=== PATIENT | female | born 1950 | race Caucasian/White ===

== ENCOUNTER 2023-01-05 15:00 | Outpatient (OUT) | payer MEDICARE, MEDICAID, SELFPAY | END 2023-01-05 15:01 | disposition home or self-care (01) | LOC: PST 01-19 18:04 | PROVIDERS: Visit Provider Surgery | DX: Z01.818 Encounter for other preprocedural examination (principal); K63.5 Polyp of colon ==

== ENCOUNTER 2023-01-06 07:14 | Day surgery (SDC) | payer MEDICARE, MEDICAID, SELFPAY ==
[2023-01-06 07:38] VITALS: BP 130/88; PULSE 62; RESP 18; TEMP 36.1; O2SAT 95; BMI 35.6
[2023-01-06 07:47] LABS: Glucometer 121 mg/dL (74-106)
[2023-01-06] MEDS: LACTATED RINGER'S SOLUTION 1,000 ML 50 ML IV (07:50)
[2023-01-06 08:50] VITALS: BP 112/62; PULSE 70; RESP 16; TEMP 37.2; O2SAT 96
--- NOTE | 2023-01-06 08:57 | PM.GSPRC ---
Date of procedure: 01/06/23 Indications for Procedure: This patient is a 72-year-old female who presents for screening colonoscopy. Patient reportedly has h/o polyps. The risks benefits options and potential complications of the procedure were discussed in detail with the patient and they agreed to proceed and consent was signed. Pre-op diagnosis: colon cancer screening Post-op diagnosis: other (normal exam) Procedure: colonoscopy Anesthesia: MAC Surgeon: Angelo Joyce Procedure Summary: The patient was brought to the endoscopy suite and placed in the left lateral decubitus position.? Under MAC the fiberoptic colonoscope was introduced into the rectum. This was gradually advanced through the colon to the cecum. The cecal landmarks were identified. The bowel prep was good. Gradual withdrawal of the colonoscope was then undertaken. No vascular polypoid or mucosal lesions were noted throughout the entire length of the colon. The anal rectal canal was unremarkable. The colon was decompressed. Digital rectal exam was unremarkable. The procedure was ended and the patient was transferred to the recovery area in stable condition. Recommended follow-up colonoscopy in ten years. Estimated blood loss (mL): 0 Specimens: none Complications: No
[2023-01-06 09:05] VITALS: BP 115/65; PULSE 66; RESP 18; O2SAT 97
[2023-01-06 09:19] VITALS: BP 118/72; PULSE 62; RESP 16; O2SAT 96
== END 2023-01-06 09:20 | disposition home or self-care (01) ==
PROVIDERS: Visit Provider Surgery
PROC: (CPT G0121; principal; 2023-01-06 08:30)
DX: Z12.11 Encounter for screening for malignant neoplasm of colon (principal); Z86.010 Personal history of colon polyps; I48.91 Unspecified atrial fibrillation; I10 Essential (primary) hypertension; E78.5 Hyperlipidemia, unspecified; Z90.710 Acquired absence of both cervix and uterus; Z90.49 Acquired absence of other specified parts of digestive tract; Z95.0 Presence of cardiac pacemaker; Z79.4 Long term (current) use of insulin; Z79.899 Other long term (current) drug therapy; Z79.01 Long term (current) use of anticoagulants
CPT/HCPCS: G0121; 36415; 82948; J2704

== ENCOUNTER 2023-10-20 09:18 | Outpatient (OUT) | payer MEDICARE, MEDICAID, SELFPAY ==
--- NOTE | 2023-10-20 | XR_ITS ---
[address] [address] Patient Name: ELI GRIMM MRN: [id number] date: 1950 Sex: F Assigned Patient Location: Current Patient Location: Accession/Order Number: [id number] Exam Date: 10/20/2023 09:20 Report Date: 10/21/2023 06:49 At the request of: MELODY WADE Procedure: XR lumbar spine min 4V EXAMINATION: XR lumbar spine min 4V HISTORY: LUMBAR PAIN COMPARISON: XR lumbar spine 06/08/2016 FINDINGS: BONES: Minimal grade 1 retrolisthesis of L1 on 2, L2 on 3, and L3 on 4; no change in alignment during flexion and extension. Chronic mild anterior wedging of T11 and T12. Moderate degenerative facet arthropathy L4-L5, L5-S1. DISC SPACES: Marked narrowing L4-L5, L5-S1. Mild narrowing L1-L2, L2-L3. PARASPINOUS: Prior right hip replacement. OTHER: Negative. XR/XR lumbar spine min 4V IMPRESSION: 1. No appreciable acute abnormality. 2. Multilevel degenerative changes detailed above; stable to minimally progressed compared to 2016. Electronically authenticated by: MIS GLASS Date: 10/21/2023 06:49
== END 2023-10-20 09:19 | disposition home or self-care (01) ==
LOC: EC 09:19
PROVIDERS: Visit Provider Orthopaedic Surgery Orthopaedic Surgery of the Spine
DX: M54.50 Low back pain, unspecified (principal)
CPT/HCPCS: 72110

== ENCOUNTER 2024-07-05 11:16 | Outpatient (OUT) | payer MEDICARE, MEDICAID, SELFPAY ==
--- NOTE | 2024-07-05 11:36 | ECG_ITS ---
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
[2024-07-05 12:19] LABS: Basophils Percent Auto 0.6 % (0.2-2.0); Eosinophils Absolute Auto 0.2 10^3/uL (0.0-0.7); Eosinophils Percent Auto 2.4 % (0.9-7.0); Hematocrit 37.9 % (36.0-48.0); Hemoglobin 11.8 g/dL (12.0-16.0); Immature Granulocytes Abs Auto 0.02 10^3/uL (0.00-0.03); Immature Granulocytes Pct Auto 0.3 % (0.0-0.5); Lymphocytes Absolute Auto 1.3 10^3/uL (1.2-3.8); Mean Corpuscular HGB Conc 31.1 g/dL (29.9-35.2); Mean Corpuscular Hemoglobin 29.8 pg (26.7-34.0); Mean Corpuscular Volume 95.7 fL (81.0-99.0); Mean Platelet Volume 9.4 fL (9.5-13.5); Monocytes Absolute Auto 0.6 10^3/uL (0.3-0.8); Monocytes Percent Auto 8.7 % (1.7-12.0); Neutrophils Absolute Auto 5.1 10^3/uL (1.4-6.5); Platelet Count 184 10^3/uL (150-450); Red Blood Count 3.96 10^6/uL (4.20-5.40); Red Cell Distribution Width 13.2 % (11.0-15.0); White Blood Count 7.2 10^3/uL (4.0-11.0)
[2024-07-05 12:27] LABS: Estimated Average Glucose 128 mg/dL; Glycohemoglobin A1C 6.1 % (4.5-6.2)
[2024-07-05 12:28] LABS: Alanine Aminotransferase 18 U/L (14-59); Albumin Globulin Ratio 1.2; Albumin Level 3.7 g/dL (3.4-5.0); Alkaline Phosphatase 53 U/L (46-116); Anion Gap 8.9; Aspartate Amino Transferase 16 U/L (15-37); BUN Creatinine Ratio 15.9; Bilirubin Direct 0.1 mg/dL (0.0-0.2); Bilirubin Total 0.4 mg/dL (0.2-1.0); Calcium 8.9 mg/dL (8.5-10.1); Carbon Dioxide 31.1 mmol/L (21.0-32.0); Chloride 105 mmol/L (98-107); Estimated GFR (African America 33 (>=60 mL/min/1.73m^2); Estimated GFR (Non-African Ame 27 (>=60 mL/min/1.73m^2); Globulin 3.1 g/dL; Glucose 105 mg/dL (74-106); Sodium 140 mmol/L (136-145); Total Protein 6.8 g/dL (6.4-8.2)
[2024-07-05 12:36] LABS: INR 1.19; Partial Thromboplastin Time 29.1 sec (22.3-36.2); Prothrombin Time 12.4 sec (9.0-11.6)
== END 2024-07-05 11:17 | disposition home or self-care (01) ==
LOC: PST 11:19
PROVIDERS: Visit Provider Orthopaedic Surgery Orthopaedic Surgery of the Spine
DX: Z01.810 Encounter for preprocedural cardiovascular examination (principal); Z01.812 Encounter for preprocedural laboratory examination; M48.062 Spinal stenosis, lumbar region with neurogenic claudication
CPT/HCPCS: 80048; 80076; 83036; 85025; 85610; 85730; 87081; 93005

== ENCOUNTER 2024-09-10 08:33 | Outpatient (OUT) | payer MEDICARE, MEDICAID, SELFPAY ==
--- OUTSIDE RECORDS SUMMARY | 2024-09-10 08:48 | XMS_ITS | CCD ---
Author Organization [facility] Care Team Providers Care Quality Control Microbiologist Name Role Phone Alessandra Maddoxary HCameron Admitting Unavailable Timmis, Alfredito HCameron Attending Unavailable Timmis, Alfredito H. Referring Unavailable TRAVIS, NAYA Primary Care Unavailable SHAMMO, BECKIE Admitting Unavailable SHAMMO, BECKIE Attending Unavailable MISC, DR ANDREWS Primary Care Unavailable SHAMMO, BECKIE Consulting Unavailable Travis, Naya L. Primary Care Unavailable Chase, Paris Mcclure Attending Unavail able Chase, Paris Mcclure Admitting Unavail able Chase, Paris Mcclure Attending Unavail able Chase, Paris Mcclure Admitting Unavail able Travis, Naya L. Primary Care Unavailable THU, GRISELDA L Referring Unavailable TRAVIS, NAYA L Primary Care Unavailable THU, GRISELDA L Referring Unavailable TRAVIS, NAYA L Primary Care Unavailable THU, GRISELDA L Referring Unavailable TRAVIS, NAYA L Primary Care Unavailable THU, GRISELDA L Attending Unavailable TRAVIS, NAYA L Referring Unavailable TRAVIS, NAYA L Primary Care Unavailable THU, GRISELDA L Attending Unavailable TRAVIS, NAYA L Referring Unavailable TRAVIS, NAYA L Primary Care Unavailable THU, GRISELDA L Attending Unavailable TRAVIS, NAYA L Referring Unavailable TRAVIS, NAYA L Primary Care Unavailable THU, GRISELDA L Attending Unavailable TRAVIS, NAYA L Referring Unavailable TRAVIS, NAYA L Primary Care Unavailable THU, GRISELDA L Attending Unavailable TRAVIS, NAYA L Referring Unavailable TRAVIS, NAYA L Primary Care Unavailable THU, GRISELDA L Attending Unavailable TRAVIS, NAYA L Referring Unavailable TRAVIS, NAYA L Primary Care Unavailable Naya Travis MD Primary Care Provider [phone] Naya Travis MD Primary Care Provider Anahi Reyes MD Primary Care Provider [phone] Margie Saenz DO Primary Care Provider [phone] TANISHA MOLINA Attending Unavailable TANISHA MOLINA Attending Unavailable MARGIE SAENZ Attending Unavailable TRAVIS, NAYA Referring Unavailable TANIHSA MOLINA Attending Unavailable STAN SCHWAB Referring Unavailable STAN SCHWAB Attending Unavailable PARIS STONE Attending Unavailable TANISHA MOLINA Attending Unavailable MARGIE SAENZ Attending Unavailable ALFREDITO MADDOX Attending Unavailable TRAVIS, NAYA Referring Unavailable STAN SCHWAB Referring Unavailable STAN SCHWAB Attending Unavailable PARIS STONE Attending Unavailable TRAVIS, NAYA L Referring Unavailable TRAVIS, NAYA L Primary Care Unavailable TRAVIS, NAYA L Referring Unavailable TRAVIS, NAYA L Primary Care Unavailable ALEJO BAXTER Attending Unavailable GRISELDA ANDINO Referring Unavailable TRAVIS, NAYA L Primary Care Unavailable TRAVIS, NAYA L Referring Unavailable TRAVIS, NAYA L Primary Care Unavailable NIENBERGALHTEA Attending Unavailable TRAVIS, NAYA L Referring Unavailable TRAVIS, NAYA L Primary Care Unavailable NIENBERGALTHEA S Attending Unavailable NIENBERG, ALTHEA S Referring Unavailable TRAVIS, NAYA L Primary Care Unavailable NIENBERGALTHEA Attending Unavailable TRAVIS, NAYA L Referring Unavailable TRAVIS, NAYA L Primary Care Unavailable GONSALO, ALIZA Referring Unavailable TRAVIS, NAYA L Primary Care Unavailable GONSALO, ALIZA Referring Unavailable DANITA, ANAHI Primary Care Unavailable KELLY BAUDILIO L Referring Unavailable DANITA, ANAHI Primary Care Unavailable KELLY BAUDILIO Jared Referring Unavailable DANITA, ANAHI Primary Care Unavailable TRAVIS, NAYA L Referring Unavailable DANITA, ANAHI Primary Care Unavailable JOE ROBERTO Attending Unavailable TRAVIS, NAYA L Referring Unavailable DANITA, ANAHI Primary Care Unavailable Naya Travis MD Primary Care Provider [phone] Allergies Allergy Classification Reported Allergen(s) Allergy Type Date of Onset Reaction(s) Facility (1 source) Azithromycin; Translations: [Zithromax] Drug Allergy [facility] Repository (17 sources) Cortisone; Translations: [cortisone] Drug Allergy 02-01-20 14 Tachycardia [facility] Repository (1 source) levoFLOXacin; Translations: [Levaquin] Drug Allergy [facility] Repository (1 source) Sulfamethoxazole / Trimethoprim; Translations: [Bactrim DS] Drug Allergy [facility] Repository (16 sources) atorvastatin; Translations: [ATORVASTATIN] Drug Allergy 02-01-20 14 Other (See Comments) [facility] Repository (16 sources) Azithromycin; Translations: [AZITHROMYCIN] Drug Allergy 02-01-20 14 Nausea And Vomiting, Rash, Vomiting [facility] Repository (9 sources) dabigatran etexilate; Translations: [DABIGATRAN ETEXILATE] Drug Allergy 02-01-20 14 Nausea [facility] Repository (9 sources) Hydrocortisone; Translations: [HYDROCORTISONE] Drug Allergy 02-01-20 14 [facility] Repository (16 sources) levoFLOXacin; Translations: [LEVOFLOXACIN] Drug Allergy 11-17-19 17 Dizziness [facility] Repository (17 sources) rosuvastatin; Translations: [ROSUVASTATIN] Drug Allergy 01-31-20 19 Itching, Rash [facility] Repository (16 sources) Sulfamethoxazole / Trimethoprim; Translations: [SULFAMETHOXAZOLE-TRIM ETHOPRIM] Drug Allergy 04-01-20 14 Vomiting [facility] Repository (16 sources) ERYTHROMYCIN BASE; Translations: [ERYTHROMYCIN BASE] Propensity to adverse reactions to drug (disorder) 02-01-20 14 Vomiting [facility] Repository (7 sources) Acetaminophen Drug Allergy 04-29-20 21 [facility] (7 sources) cefdinir Drug Allergy 11-16-19 24 Unknown [facility] (7 sources) dabigatran etexilate Drug Allergy 02-01-20 14 Nausea Only [facility] (7 sources) Doxycycline Drug Allergy 11-16-19 24 [facility] (7 sources) dulaglutide Drug Allergy 04-29-20 21 Rash [facility] (7 sources) DULoxetine Drug Allergy 12-08-19 21 [facility] (7 sources) Erythromycin Drug Allergy 11-16-19 24 [facility] (7 sources) hydroCHLOROthiazide Drug Allergy 11-16-19 24 [facility] (7 sources) HYDROcodone Drug Allergy 10-28-20 21 [facility] (7 sources) Lisinopril Allergy to substance 11-16-19 [facility] (7 sources) metroNIDAZOLE Drug Allergy 12-23-19 [facility] (7 sources) moxifloxacin Drug Allergy 11-16-19 [facility] (7 sources) Nitrofurantoin Drug Allergy 11-16-19 Unknown [facility] (7 sources) Simvastatin Allergy to substance 11-16-19 [facility] (7 sources) venlafaxine Drug Allergy 11-16-19 [facility] (7 sources) Amoxicillin-Pot Clavulanate Drug Allergy 11-16-19 [facility] Work Phone: Medications Current Medications Medication Drug Class(es) Dates Sig (Normalized) Sig (Original) ALPRAZolam 0.25 mg oral tablet (7 sources) Benzodiazepine Start: 08-10-2022 ALPRAZolam (Xanax) 0.25 MG tablet every 12 (twelve) hours. 08/10/2022 Active clotrimazole 10 mg/ml topical cream (7 sources) Azole Antifungal clotrimazole (Lotrimin) 1 % cream Apply 1 application topically in the morning and 1 application before bedtime. Active esomeprazole 20 mg delayed release oral capsule (13 sources) Proton Pump Inhibitor Start: 07-19-2023 take 1 capsule by mouth once daily esomeprazole (NexIUM) [address] capsule Take 20 mg by mouth Daily 07/19/2023 Active Start: 07-13-2022 take 1 capsule by [facility] in the morning esomeprazole (NexIUM) 40 mg capsule Take 1 capsule (40 mg total) by mouth in the morning. 07/13/2022 Active estradiol 0.1 mg/ml vaginal cream (6 sources) Estrogen Start: 12-12-2023 estradioL (EST RACE) 0.01 % (0.1 mg/gram) vaginal cream Insert 1 g into the vagina in the morning. 42.5 g 3 12/12/2023 Active furosemide 40 mg oral tablet (13 sources) Loop Diuretic Start: 04-10-2024 furosemide (LA SIX) 40 mg tablet Take 1 tablet (40 mg total) by mouth as needed (edema). 90 tablet 1 04/10/2024 Active 3 ml insulin lispro 100 unt/ml pen injector (13 sources) Insulin Analog Start: 10-12-2023 insulin lispro (HumaLOG KWIKPEN) 100 UNIT/ML injection Indications: Type 2 diabetes mellitus with stage 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ney disease, without long-term current use of insulin (HCC) ([facility]) INJECT SUBCUTANEOUSLY PER SLIDING SCALE DIRECTED 1:30 > 150 MG/DL ( max 30 units a day) for 30 days 15 mL 3 10/12/2023 Active insulin lispro ( HumaLOG) 100 unit/mL injection Inject under the skin. Sliding scale Active levothyroxine sodium 0.025 mg oral tablet (13 sources) l-Thyroxine levothyroxine (Synthroid, Levoxyl) 25 MCG tablet 1 (one) time each day at the same time. Active losartan potassium 25 mg oral tablet (7 sources) Angiotensin 2 Receptor Lacie Start: 08-03-19 24 take 1 tablet by mouth once daily losartan (Cozaar) 25 MG tablet Take 25 mg by mouth Daily 08/03/2023 Active lovastatin 40 mg oral tablet (13 sources) HMG-CoA Reductase Inhibitor Start: 08-10-19 23 take 2 tablets by mouth at bedtime lovastatin (Mevacor) 40 MG tablet Take 80 mg by mouth at bedtime 08/10/2022 Active meclizine hydrochloride 25 mg oral tablet (13 sources) Antiemetic meclizine (Antiv ert) 25 MG tablet 1 tablet as needed Orally 3 xs daily as needed for 90 days Active metoprolol tartrate 25 mg oral tablet (13 sources) beta-Adrenergic Lacie Start: 12-04-19 24 take 1 tablet by mouth in the morning, then take 1 tablet by mouth at bedtime metoprolol tartrate (LOPRESSOR) 25 mg tablet Take 1 tablet (25 mg total) by mouth in the morning and 1 tablet (25 mg total) before bedtime. 180 tablet 2 12/04/2023 Active metoprolol tartr ate (Lopressor) 25 MG tablet every 12 (twelve) hours. Active nystatin 100 unt/mg topical powder (8 sources) Polyene Antifungal Start: 11-20-2023 End: 07-18-2024 nystatin (MYCOSTATIN) powder Apply 1 Application topically in the morning and 1 Application at noon and 1 Application in the evening and 1 Application before bedtime. 15 g 11/20/2023 Active ondansetron 8 mg disintegrating oral tablet (13 sources) Serotonin-3 Receptor Antagonist Start: 2022 take 1 tablet by mouth twice daily as needed ondansetron ODT (ZOFRAN ODT) 8 mg disintegrating tablet DISSOLVE 1 TABLET IN MOUTH TWICE DAILY NEEDED 2022 Active rivaroxaban 15 mg oral tablet (14 sources) Factor Xa Inhibitor Start: 02-22-2022 End: 07-24-2024 take 1 tablet by mouth in the morning rivaroxaban (Xarelto) 15 MG tablet Take 15 mg by mouth in the morning. 02/22/2022 Active 0.25 mg, 0.5 mg dose 1.5 ml semaglutide 1.34 mg/ml pen injector (6 sources) semaglutide (OZEMPIC) 0.25 mg or 0.5 mg(2 mg/1.5 mL) pen injector Inject 2 mg under the skin once a week. Active Semaglutide, 2 MG/DOSE, (Ozempic, 2 MG/DOSE,) 8 MG/3ML solution pen-injector (9 sources) Start: 09-09-2024 End: 09-09-2025 Semaglutide, 2 MG/DOSE, (Ozempic, 2 MG/DOSE,) 8 MG/3ML solution pen-injector Indications: Type 2 diabetes mellitus with stage 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ney disease, without long-term current use of insulin (HCC) ([facility]) Inject 2 mg under the skin every 7 (seven) days 9 mL 3 09/09/2024 09/09/2025 Active Start: 03-11-2024 End: 03-11-2025 Semaglutide, 2 MG/DOSE, (Oze mpic, 2 MG/DOSE,) 8 MG/3ML solution pen-injector Indications: Type 2 diabetes mellitus with stage 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ney disease, without long-term current use of insulin (HCC) ([facility]) Inject 1 mg under the skin every 7 (seven) days 9 mL 3 03/11/2024 03/11/2025 Active Start: 09-08-2023 End: 03-11-2024 Semaglutide, 2 MG/DOSE, (Oze mpic, 2 MG/DOSE,) 8 MG/3ML solution pen-injector Indications: Type 2 diabetes mellitus with stage 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ney disease, without long-term current use of insulin (HCC) ([facility]/HCC) Inject 2 mg under the skin every 7 (seven) days 9 mL 3 09/08/2023 03/11/2024 Discontinued (Dose adjustment) sertraline 25 mg oral tablet (13 sources) Serotonin Reuptake Inhibitor Start: 10-06-2022 take 4 tablets by mouth in the morning sertraline (ZOLOFT) 25 mg tablet Take 4 tablets (100 mg total) by mouth in the morning. 10/06/2022 Active Start: 10-06-2022 take 6 tablets by mo uth in the morning sertraline (ZOLOFT) 25 mg tablet Take 6 tablets (150 mg total) by mouth in the morning. 10/06/2022 Active sertraline (Zolo ft) 100 MG tablet 1 (one) time each day at the same time Active simethicone 125 mg oral caps ule (6 sources) simethicone (Myl icon,Gas-X) 125 MG capsule 1 tablet as needed Orally at bedtime Active Completed/Discontinued Medications Medication Drug Class(es) Dates Sig (Normalized) Sig (Original) cholecalciferol 1.25 mg oral capsule (12 sources) Vitamin D Start: 12-05-2022 End: 08-28-2024 cholecalciferol (VITAMIN D3) 50,000 units capsule 1 capsule (50,000 Units total). 12/05/2022 08/28/2024 Discontinued Start: 12-05-2022 take 1 capsule by mo uth every week cholecalciferol (Vitamin D-3) 1.25 MG (65512 UT) capsule Take 1 capsule by mouth 1 (one) time per week. 12/05/2022 Active clobetasol propionate 0.5 mg/ml topical cream (6 sources) Corticosteroid Start: 02-06-2024 End: 08-28-2024 clobetasoL (TEMOVATE) 0.05 % cream Apply 1 Application topically in the morning and 1 Application before bedtime. 30 g 02/06/2024 08/28/2024 Discontinued gabapentin 300 mg oral capsule (6 sources) Anti-epileptic Agent Start: 04-11-2024 End: 08-28-2024 take 1 capsule by mouth three times daily gabapentin (NEURONTIN) 300 mg capsule Indications: Lumbosacral spondylosis without myelopathy Take 1 capsule (300 mg total) by mouth 3 (three) times a day. 90 capsule 1 04/11/2024 08/28/2024 Discontinued methylPREDNISolone (2 sources) Corticosteroid Start: 11-15-2023 End: 03-11-2024 methylPREDNISolone (Medrol Dospak) 4 MG tablets Indications: Strain of left shoulder, initial encounter Follow schedule on package instructions 21 tablet 11/15/2023 03/11/2024 Discontinued polyethylene glycol 3350 36022 mg powder for oral solution (2 sources) Osmotic Laxative Start: 10-11-2023 End: 03-11-2024 polyethylene glycol, PEG, 3350 (MiraLax) 17 GM/SCOOP powder Take 17 g by mouth 1 (one) time each day at the same time 10/11/2023 03/11/2024 Discontinued Problems Active Problems Problem Classification Problem Date Documented Date Episodic/Chronic Acquired foot deformities (8 sources) Acquired hammer toe of left foot; Translations: [Other hammer toe(s) (acquired), left foot] Onset: 04-11-2019 12-22-2022 Chronic Acquired foot deformities (7 sources) Acquired hammer toe of right foot; Translations: [Other hammer toe(s) (acquired), right foot] Onset: 04-11-2019 12-22-2022 Chronic Anxiety disorders (20 sources) Anxiety; Translations: [Anxiety disorder, unspecified] Onset: 05-02-2017 12-22-2022 Chronic Asthma (19 sources) Asthma; Translations: [Unspecified asthma, uncomplicated] Onset: 10-05-2016 Resolved: 11-10-2022 11-14-2023 Chronic Blindness and vision defects (13 sources) Visual impairment; Translations: [Unspecified visual loss] Onset: 06-14-2022 12-22-2022 Chronic Cardiac dysrhythmias (20 sources) Paroxysmal atrial fibrillation; Translations: [Paroxysmal atrial fibrillation] Onset: 10-05-2016 Resolved: 08-28-2024 12-22-2022 Chronic Chronic kidney disease (8 sources) Chronic kidney disease stage 3; Translations: [CKD (chronic kidney disease) stage 3, GFR 30-59 ml/min ([facility])] Onset: 11-14-2023 11-14-2023 Chronic Chronic kidney disease (1 source) Chronic kidney disease; Translations: [Chronic kidney disease, stage 3b] Onset: 07-15-2024 Conduction disorders (17 sources) Cardiac pacemaker in situ; Translations: [Presence of cardiac pacemaker] Onset: 06-07-2011 12-22-2022 Chronic Congestive heart failure; nonhypertensive (15 sources) Chronic heart failure co-occurrent with normal ejection fraction; Translations: [Chronic diastolic (congestive) heart failure] Onset: 06-28-2023 11-14-2023 Chronic Diabetes mellitus with complications (20 sources) Type 2 diabetes mellitus; Translations: [Type 2 diabetes mellitus with diabetic chronic kidney disease] Onset: 10-12-2016 Resolved: 12-22-2022 06-19-2023 Chronic Disorders of lipid metabolism (14 sources) Hyperlipidemia; Translations: [Hyperlipidemia, unspecified] Onset: 06-14-2022 11-14-2023 Chronic Diverticulosis and diverticulitis (7 sources) Diverticulosis of colon; Translations: [Diverticulosis of large intestine without perforation or abscess without bleeding] Onset: 11-14-2023 11-14-2023 Chronic Esophageal disorders (20 sources) Gastroesophageal reflux disease; Translations: [Gastro-esophageal reflux disease without esophagitis] Onset: 06-14-2022 12-22-2022 Chronic Essential hypertension (15 sources) Hypertensive disorder; Translations: [Essential (primary) hypertension] Onset: 06-02-2011 12-22-2022 Chronic Genitourinary symptoms and ill-defined conditions (1 source) Dysuria; Translations: [Dysuria] Onset: 01-02-2024 Episodic Headache; including migraine (13 sources) Migraine; Translations: [Migraine, unspecified, not intractable, without status migrainosus] Onset: 06-14-2022 12-22-2022 Chronic Heart valve disorders (19 sources) Mitral valve regurgitation; Translations: [Nonrheumatic mitral (valve) insufficiency] Onset: 09-02-2020 12-22-2022 Chronic Inflammatory diseases of female pelvic organs (2 sources) Acute vaginitis; Translations: [Acute vaginitis] Onset: 11-20-2023 Episodic Mood disorders (6 sources) Depressive disorder; Translations: [Depression] Onset: 06-02-2018 06-14-2022 Chronic Mycoses (2 sources) Onychomycosis; Translations: [Tinea unguium] 05-02-2024 Episodic Nutritional deficiencies (7 sources) Vitamin D deficiency; Translations: [Vitamin D deficiency, unspecified] Onset: 11-14-2023 11-14-2023 Chronic Osteoarthritis (20 sources) Arthritis of first carpometacarpal joint of right hand; Translations: [Unilateral primary osteoarthritis of first carpometacarpal joint, right hand] Onset: 04-06-2017 12-22-2022 Chronic Other connective tissue disease (7 sources) Hip joint prosthesis present; Translations: [Presence of right artificial hip joint] Onset: 11-28-2017 12-22-2022 Chronic Other connective tissue disease (7 sources) History of reverse prosthetic total arthroplasty of left shoulder; Translations: [Presence of left artificial shoulder joint] Onset: 08-10-2020 12-22-2022 Chronic Other connective tissue disease (7 sources) History of total hip arthroplasty; Translations: [Presence of right artificial hip joint] Onset: 01-06-2018 12-22-2022 Chronic Other ear and sense organ disorders (7 sources) Sensorineural hearing loss, bilateral; Translations: [Sensorineural hearing loss, bilateral] Onset: 04-04-2018 12-22-2022 Chronic Other female genital disorders (1 source) Other specified noninflammatory disorders of vagina; Translations: [Other specified noninflammatory disorders of vagina] Onset: 01-02-2024 Episodic Other female genital disorders (1 source) Vaginal irritation Onset: 11-20-2023 Episodic Other hereditary and degenerative nervous system conditions (13 sources) Restless legs; Translations: [Restless legs syndrome] Onset: 05-02-2017 11-14-2023 Chronic Other nervous system disorders (13 sources) Carpal tunnel syndrome; Translations: [Carpal tunnel syndrome, unspecified upper limb] Onset: 06-14-2022 12-22-2022 Chronic Other nervous system disorders (7 sources) Difficulty walking; Translations: [Difficulty in walking, not elsewhere classified] Onset: 05-14-2019 12-22-2022 Chronic Other nervous system disorders (7 sources) Chronic pain; Translations: [Other chronic pain] Onset: 09-12-2017 12-22-2022 Chronic Other nervous system disorders (7 sources) Polyneuropathy; Translations: [Polyneuropathy, unspecified] Onset: 10-31-2017 06-22-2023 Chronic Other nervous system disorders (7 sources) Neuropathy; Translations: [Polyneuropathy, unspecified] Onset: 11-14-2023 11-14-2023 Chronic Other nervous system disorders (1 source) Other chronic pain; Translations: [Other chronic pain] Onset: 03-05-2024 Chronic Other non-traumatic joint disorders (7 sources) Derangement of right shoulder joint; Translations: [Other specific joint derangements of right shoulder, not elsewhere classified] Onset: 03-10-2021 12-22-2022 Chronic Other nutritional; endocrine; and metabolic disorders (7 sources) Obesity; Translations: [Obesity, unspecified] Onset: 12-22-2022 11-14-2023 Chronic Other nutritional; endocrine; and metabolic disorders (6 sources) Severe obesity; Translations: [Morbid (severe) obesity due to excess calories] Onset: 03-15-2018 03-15-2018 Chronic Other skin disorders (1 source) Ingrowing nail; Translations: [Ingrowing nail] 05-02-2024 Episodic Other upper respiratory disease (13 sources) Seasonal allergy; Translations: [Other seasonal allergic rhinitis] Onset: 06-14-2022 12-22-2022 Chronic Other upper respiratory infections (6 sources) Sinusitis; Translations: [Chronic sinusitis, unspecified] Onset: 06-14-2022 06-14-2022 Chronic Other upper respiratory infections (4 sources) Acute pansinusitis, unspecified; Translations: [ACUTE PANSINUSITIS UNSPECIFIED] Onset: 07-06-2022 Episodic Pulmonary heart disease (6 sources) Secondary pulmonary hypertension; Translations: [Secondary pulmonary hypertension] Onset: 03-18-2015 05-03-2017 Chronic Residual codes; unclassified (13 sources) Hypoxia; Translations: [Idiopathic sleep related nonobstructive alveolar hypoventilation] Onset: 10-05-2016 12-22-2022 Chronic Residual codes; unclassified (7 sources) Sleep apnea; Translations: [Sleep apnea, unspecified] Onset: 10-05-2016 11-14-2023 Chronic Residual codes; unclassified (6 sources) Obstructive sleep apnea syndrome; Translations: [Obstructive sleep apnea (adult) (pediatric)] Onset: 10-05-2016 10-05-2016 Chronic Spondylosis; intervertebral disc disorders; other back problems (20 sources) Bilateral inflammation of sacroiliac joint; Translations: [Sacroiliitis, not elsewhere classified] Onset: 09-12-2017 12-22-2022 Chronic Thyroid disorders (14 sources) Hypothyroidism; Translations: [Hypothyroidism, unspecified] Onset: 10-05-2016 12-22-2022 Chronic Unclassified (1 source) Vaginal Itching Onset: 12-12-2023 Unclassified (1 source) Other persistent atrial fibrillation; Translations: [Other persistent atrial fibrillation] Onset: 08-28-2024 Unclassified (1 source) Pre-op Exam Onset: 08-28-2024 Unclassified (1 source) Device Check Onset: 01-03-2024 Urinary tract infections (1 source) Acute pyelonephritis; Translations: [Acute pyelonephritis] Onset: 06-21-2024 Episodic Past or Other Problems Problem Classification Problem Date Documented Da te Episodic/Chronic Cardiac dysrhythmias (20 sources) Bradycardia; Translations: [Bradycardia, unspecified] Onset: 2016 Resolved: 08-28-2024 12-22-2022 Episodic Conditions associated with dizziness or vertigo (20 sources) Peripheral vertigo; Translations: [Other peripheral vertigo, unspecified ear] Onset: 12-26-2018 12-22-2022 Episodic Deficiency and other anemia (7 sources) Anemia; Translations: [Anemia, unspecified] Onset: 11-14-2023 11-14-2023 Episodic Diabetes mellitus without complication (13 sources) Type 2 diabetes mellitus without complication; Translations: [Type 2 diabetes mellitus without complications] Onset: 06-02-2011 Resolved: 06-19-2023 06-19-2023 Chronic Gastrointestinal hemorrhage (13 sources) Rectal hemorrhage; Translations: [Hemorrhage of anus and rectum] Onset: 08-30-2018 12-22-2022 Episodic Headache; including migraine (7 sources) Headache; Translations: [Head pain cephalgia] Onset: 11-14-2023 11-14-2023 Episodic Malaise and fatigue (7 sources) Fatigue; Translations: [Other fatigue] Onset: 11-14-2023 11-14-2023 Episodic Mood disorders (6 sources) Mood disorders Onset: 06-01-2022 06-01-2022 Nutritional deficiencies (7 sources) Vitamin B deficiency; Translations: [Vitamin B deficiency, unspecified] Onset: 11-14-2023 11-14-2023 Episodic Other aftercare (7 sources) Long-term current use of insulin; Translations: [half-way (current) use of insulin] Onset: 02-28-2021 Resolved: 12-22-2022 12-22-2022 Episodic Other and unspecified benign neoplasm (13 sources) Adenomatous polyp of colon ; Translations: [Benign neoplasm of descending colon] Onset: 09-11-2018 12-22-2022 Episodic Other and unspecified benign neoplasm (13 sources) Adenomatous polyp of rectum; Translations: [Benign neoplasm of rectum] Onset: 09-11-2018 12-22-2022 Episodic Other and unspecified benign neoplasm (13 sources) History of adenomatous polyp of colon; Translations: [History of adenomatous polyp of colon] Onset: 08-30-2018 12-22-2022 Episodic Other connective tissue disease (7 sources) Neurogenic pain; Translations: [Neuralgia and neuritis, unspecified] Onset: 05-02-2017 12-22-2022 Episodic Other connective tissue disease (13 sources) Rotator cuff arthropathy of left shoulder; Translations: [Unspecified rotator cuff tear or rupture of left shoulder, not specified as traumatic] Onset: 04-25-2017 12-22-2022 Episodic Other connective tissue disease (13 sources) Bilateral trochanteric bursitis; Translations: [Trochanteric bursitis, right hip] Onset: 04-13-2021 12-22-2022 Episodic Other diseases of kidney and ureters (7 sources) Abnormal renal function; Translations: [Disorder of kidney and ureter, unspecified] Onset: 11-14-2023 11-14-2023 Episodic Other ear and sense organ disorders (7 sources) Tinnitus of left ear; Translations: [Tinnitus, left ear] Onset: 04-04-2018 12-22-2022 Episodic Other gastrointestinal disorders (13 sources) Altered bowel function; Translations: [Change in bowel habit] Onset: 08-30-2018 12-22-2022 Episodic Other inflammatory condition of skin (2 sources) Pruritus vulvae; Translations: [Pruritus vulvae] Onset: 01-29-2024 Episodic Other injuries and conditions due to external causes (13 sources) Fracture of bone; Translations: [Unspecified multiple injuries, initial encounter] Onset: 12-13-2022 06-22-2023 Episodic Other non-traumatic joint disorders (5 sources) Hip pain; Translations: [Pain in right hip] Onset: 07-17-2019 12-22-2022 Episodic Other non-traumatic joint disorders (2 sources) Pain in right hip joint; Translations: [Pain in right hip] Onset: 07-17-2019 12-22-2022 Episodic Other nutritional; endocrine; and metabolic disorders (7 sources) Obesity caused by energy imbalance; Translations: [Other obesity due to excess calories] Onset: 12-22-2022 Resolved: 06-19-2023 06-19-2023 Chronic Other nutritional; endocrine; and metabolic disorders (6 sources) Body mass index 40+ - severely obese; Translations: [Body mass index (BMI) 40.0-44.9, adult] Onset: 09-27-2017 Resolved: 09-06-2018 09-06-2018 Chronic Other upper respiratory disease (7 sources) Hoarse; Translations: [Dysphonia] Onset: 11-16-2023 11-16-2023 Episodic Serina-; endo-; and myocarditis; cardiomyopathy (except that caused by tuberculosis or sexually transmitted disease) (13 sources) Acute idiopathic pericarditis; Translations: [Acute nonspecific idiopathic pericarditis] Onset: 06-07-2011 12-22-2022 Episodic Residual codes; unclassified (7 sources) Amnesia; Translations: [Other amnesia] Onset: 04-02-2020 12-22-2022 Episodic Spondylosis; intervertebral disc disorders; other back problems (20 sources) Acute thoracic back pain; Translations: [Pain in thoracic spine] Onset: 06-18-2019 12-22-2022 Episodic Unclassified (6 sources) Onset: 09-11-2018 09-11-2018 Varicose veins of lower extremity (13 sources) Varicose veins of lower extremity; Translations: [Asymptomatic varicose veins of unspecified lower extremity] Onset: 06-14-2022 12-22-2022 Episodic Results Test Name Value Interpretation Reference Range Facility Device Interrogationon 08-28 [facility] Radiology Study observation (narrative) [facility] POCT EKGOrdered By: Ashwini Fitzpatrick on 08-28-2024 [facility] PROTEIN CREAT RATIOon 2024 RANDOM URINE PROTEIN 90 mg/L Normal <120 [facility] Comment on above: Performed By: #### T MIKE, 68016-7 #### [facility] ([id number]) [address], [address] [place] [address] U/PRO/PATIENT SAFETY COORDINATOR RATIO CALC 0.16 Normal <0.2 [facility] Comment on above: Result Comment: Neph rotic Syndrome is associated with ratios >3.5 Performed By: #### T MIKE, 70295-0 #### [facility] ([id number]) [address], [address] [place] [address] URINE CREATININE,RDM 56.26 mg/dL Normal [facility] Comment on above: Performed By: #### T MIKE, 19315-2 #### [facility] ([id number]) [address], [address] [place] [address] URINALYSISon 07-16-2024 Bilirubin Ql (U) Negative Normal NEG [facility] Comment on above: Performed By: #### T MIKE, 17484-3 #### [facility] ([id number]) [address], [address] [place] [address] BLOOD/HGB Negative Normal NEG [facility] Comment on above: Performed By: #### T MIKE, 12104-5 #### [facility] ([id number]) [address], [address] [place] [address] Color (U) YELLOW Normal YELLOW [facility] Comment on above: Performed By: #### T MIKE, 81670-3 #### [facility] ([id number]) [address], [address] [place] [address] Glucose Ql (U) Negative Normal NEG [facility] Comment on above: Performed By: #### T MIKE, 00733-6 #### [facility] ([id number]) [address], [address] [place] [address] Ketones Ql (U) Negative Normal NEG [facility] Comment on above: Performed By: #### T MIKE, 76077-9 #### [facility] ([id number]) [address], [address] [place] [address] Leukocyte esterase Test strip Ql (U) Negative Normal NEG [facility] Comment on above: Performed By: #### T MIKE, 65659-3 #### [facility] ([id number]) [address], [address] [place] [address] Nitrite Ql (U) Negative Normal NEG [facility] Comment on above: Performed By: #### T MIKE, 07329-1 #### [facility] ([id number]) [address], [address] [place] [address] pH (U) 6.0 [pH] Normal 5.0-8.5 [facility] Comment on above: Performed By: #### T MIKE, 08414-6 #### [facility] ([id number]) [address], [address] [place] [address] Protein Ql (U) Negative Normal NEG [facility] Comment on above: Performed By: #### T MIKE, 20565-9 #### [facility] ([id number]) [address], [address] [place] [address] Specific gravity (U) [Rel density] 1.013 Normal 1.003-1.035 [facility] Comment on above: Performed By: #### T MIKE, 34123-7 #### [facility] ([id number]) [address], [address] [place] [address] TURBIDITY CLEAR Normal CLEAR [facility] Comment on above: Performed By: #### T MIKE, 90926-2 #### [facility] ([id number]) [address], [address] [place] [address] Urobilinogen (U) [Mass/Vol] mg/dL Normal <1.1 [facility] Comment on above: Performed By: #### T [facility], 62689-7 #### [facility] ([id number]) [address], [address] [place] [address] BASIC METABOLIC PANLon 07-15 Anion gap [Moles/Vol] 10 mmol/L Normal 5-15 [facility] Comment on above: Performed By: #### C PIO, 2776-, , 2731-01, BMP #### [facility] ([id number]) [address], [address] [place] [address] Calcium [Mass/Vol] 9.3 mg/dL Normal 8.5-10.5 [facility] Comment on above: Performed By: #### Charlotte SUERO, 2776-, , 2731-01, BMP #### [facility] ([id number]) [address], [address] [place] [address] Chloride [Moles/Vol] 106 mmol/L Normal 98-109 [facility] Comment on above: Performed By: #### Charlotte SUERO, 2776-, , 2731-01, BMP #### [facility] ([id number]) [address], [address] [place] [address] CO2 [Moles/Vol] 25 mmol/L Normal 22-32 [facility] Comment on above: Performed By: #### Charlotte BC, 2776-, , 2731-01, BMP #### [facility] ([id number]) [address], [address] [place] [address] Creatinine [Mass/Vol] 1.87 mg/dL High 0.40-1.00 [facility] Comment on above: Result Comment: METH OD TRACEABLE TO IDMS STANDARD Performed By: #### Charlotte SUERO, 2776-, , 2731-01, BMP #### [facility] ([id number]) [address], [address] [place] [address] GFR/1.73 sq M.predicted among non-blacks MDRD (S/P/Bld) [Vol rate/Area] 28 mL/min/{1.73_m2} Low >59 [facility] Comment on above: Result Comment: Reported eGFR is based on the CKD-EPI 2020 equation that does not use a race coefficient. Performed By: #### Charlotte SUERO, 2776-, , 2731-01, BMP #### [facility] ([id number]) [address], [address] [place] [address] Glucose [Mass/Vol] 136 mg/dL High 65-99 [facility] Comment on above: Performed By: #### Charlotte SUERO, 2776-07, , 2731-01, BMP #### [facility] ([id number]) [address], [address] [place] [address] Potassium [Moles/Vol] 4.4 mmol/L Normal 3.5-5.0 [facility] Comment on above: Performed By: ###Kishore SUERO, 2776-07, , 2731-01, BMP #### [facility] ([id number]) [address] [address] [place] [address] Sodium [Moles/Vol] 141 mmol/L Normal 134-146 [facility] Comment on above: Performed By: #### Charlotte SUERO, 2776-07, , 2731-01, BMP #### [facility] ([id number]) [address], [address] [place] [address] Urea nitrogen [Mass/Vol] 37 mg/dL High 5-27 [facility] Comment on above: Performed By: #### Charlotte SUERO, 2776-07, , 2731-01, BMP #### [facility] ([id number]) [address] [address] [place] [address] COMPLETE BLOOD COUNTon 07-15 Erythrocyte distribution width (RBC) [Ratio] 14.1 % Normal 11.5-15.0 [facility] Comment on above: Performed By: #### Charlotte SUERO, 2776-, , 2731-01, BMP #### [facility] ([id number]) [address], [facility] [address] [place] [address] Hematocrit (Bld) [Volume fraction] 36.0 % Normal 35-47 [facility] Comment on above: Performed By: #### Charlotte SUERO, 2776-, , 2731-01, BMP #### [facility] ([id number]) [address], [address] [place] [address] Hemoglobin (Bld) [Mass/Vol] 11.9 g/dL Normal 11.7-15.5 [facility] Comment on above: Performed By: #### Charlotte SUERO, 2776-07, , 2731-01, BMP #### [facility] ([id number]) [address], [facility] [address] [place] [address] MCH (RBC) [Entitic mass] 30.7 pg Normal 27-34 [facility] Comment on above: Performed By: #### Charlotte SUERO, 2776-07, , 2731-01, BMP #### [facility] ([id number]) [address], [facility] [address] [place] [address] MCHC (RBC) [Mass/Vol] 33.2 g/dL Normal 32-36 [facility] Comment on above: Performed By: #### Charlotte SUERO, 2776-, , 2731-01, BMP #### [facility] ([id number]) [address], [address] [place] [address] MCV (RBC) [Entitic vol] 93 fL Normal 80-100 [facility] Comment on above: Performed By: #### Charlotte SUERO, 2776-, , 2731-01, BMP #### [facility] ([id number]) [address], [address] [place] [address] Platelet mean volume (Bld) [Entitic vol] 8.0 fL Normal 7-12 [facility] Comment on above: Performed By: #### Charlotte SUERO, 2776-, , 2731-01, BMP #### [facility] ([id number]) [address], [address] [place] [address] Platelets (Bld) [#/Vol] 185 10*3/uL Normal 150-450 [facility] Comment on above: Performed By: #### Charlotte SUERO, 2776-, , 2731-01, BMP #### [facility] ([id number]) [address], [address] [place] [address] RBC COUNT 3.88 X10E12/L Normal 3.80-5.20 [facility] Comment on above: Performed By: #### Charlotte SUERO, 2776-07, , 2731-01, BMP #### [facility] ([id number]) [address], [address] [place] [address] WBC (Bld) [#/Vol] 7.9 10*3/uL Normal 4.0-11.0 [facility] Comment on above: Performed By: #### Charlotte SUERO, 2776-, , 2731-01, BMP #### [facility] ([id number]) [address], [facility] [address] [place] [address] MAGNESIUMon 07-15-2024 Magnesium [Mass/Vol] 1.8 mg/dL Normal 1.8-2.6 [facility] Comment on above: Performed By: #### Charlotte SUERO, 2776-, , 2731-01, BMP #### [facility] ([id number]) [address] [place] [address] PHOSPHORUSon 07-15-2024 Phosphate [Mass/Vol] 2.7 mg/dL Normal 2.4-4.9 [facility] Comment on above: Performed By: #### C BC, 2777-1, 08895-1, 2731-8, BMP #### [facility] ([id number]) [address] [place] [address] Parathyrin.intact [Mass/Vol] on 07-15-2024 PTH INTACT 84 pg/mL Normal 12-88 [facility] Comment on above: Performed By: #### T SHR, 33878-0 #### [facility] ([id number]) [address] [place] [address] XR CHEST 2 VWSon 07-15-2024 XR CHEST 2 VWS XR CHEST 2 VWS XR CHEST 2 VWS INDICATION: Preoperative clearance. Hypertension. Hyperlipidemia. Atrial fibrillation. FINDINGS: Comparison 03/05/2024. Pacemaker in place. Cardiac silhouette is normal in size. Trachea midline. Benign calcified granuloma right lower lobe measuring 2.4 cm. No dedicated follow-up necessary. No focal pulmonary consolidation. No pleural effusion. No pneumothorax. IMPRESSION: 1. No acute findings. Finalized by Gordon Burks MD on 07/15/2024 10:31 PM Normal [facility] US RETROPERITONEAL COMPLETEo n 06-22-2024 US RETROPERITONEAL COMPLETE US RETROPERITONEAL COMPLETE HISTORY: A 73-year-old female with the history of the acute pyelonephritis. TECHNIQUE: Multiple real-time images of the both kidneys and the urinary bladder are obtained. Color Doppler study is performed. COMPARISON: Comparison is made with CT scan of the abdomen and pelvis of 01/31/2022. FINDINGS: Both kidneys are normal in position and configuration. Right kidney measures 9.4 x 4.5 x 4.5 Cms. Right renal cortical thickness measures 0.3 Cms . Left kidney measures 8.4 x 3.8 x 3.7 Cms. Left renal cortical thickness measures 0.5 Cms. There is no evidence of hydronephrosis in the either kidney. There is thinning of the renal cortex. No evidence of cystic or solid renal mass. Prevoid urinary bladder volume is 16 mL. Bilateral ureteric jets are visualized. No intraluminal abnormality seen. IMPRESSION: * No evidence of echogenic calculi or hydronephrosis in the either kidney. * No evidence of cystic or solid renal mass. * Relatively small both kidneys with thinning of renal cortex. Finalized by Maicol Baxter MD on 06/22/2024 9:12 AM Normal [facility] CT LUMBAR SPINE WO CONTon CT LUMBAR SPINE WO CONT CT LUMBAR SPINE WO CONT Indication: Back pain. TECHNIQUE: Unenhanced CT of lumbar spine is performed and compared to prior exam dated 03/25/2022. FINDINGS: Degenerative disc change noted greatest at L4-5 and L5-S1 mildly progressed since prior exam. Vertebral body heights and alignment appear well-maintained. Severe bilateral neural foraminal narrowing noted at L5-S1 similar to prior exam. Moderate to severe bilateral neural foraminal narrowing at L4-5 similar to prior exam. Remaining neural foramina appear patent. No worrisome bony lesion identified. Visualized soft tissues show moderate atherosclerotic calcification of aorta. Visualized aorta shows normal caliber. Significant sclerotic change within the SI joints greatest on iliac side similar to prior exam without definite erosion. Axial images are obtained throughout. At L1 to Central canal appears patent with moderate facet degenerative change and ligamentum flavum hypertrophy. At L2-3 mild central canal narrowing noted due to broad-based disc bulge with ligamentum flavum hypertrophy and moderate facet degenerative change. At L3-4 mild central canal narrowing due to broad-based disc bulge with moderate facet degenerative change and ligamentum flavum hypertrophy. At L4-5 there is persistent broad-based disc protrusion with at least moderate central canal narrowing appearing unchanged. Moderate to severe facet degenerative change noted with ligamentum flavum hypertrophy. At L5-S1 central canal appears patent with moderate facet degenerative change noted. IMPRESSION: 1. Similar findings compared to prior exam of 03/25/2022. No acute fracture subluxation identified. 2. Prominent broad-based disc bulge with some peripheral calcification causes moderate appearing central canal narrowing at L4-5. 3. Bilateral neural foraminal narrowing L4-5 and L5-S1. 4. Sclerotic degenerative change within iliac bones adjacent to SI joints similar to prior exam. All CT scans at this facility use dose modulation, iterative reconstruction, and/or weight based dosing when appropriate to reduce radiation dose to as low as reasonably achievable. Finalized by Tereza Goodson MD on 04/10/2024 8:25 AM Normal [facility] HbA1c (Bld) [Mass fraction]o n 03-11-2024 Interpretation and review of laboratory results Normal [facility] - Hematology and Cell countson 03-11-2024 HbA1c (Bld) [Mass fraction] 6.1 % [facility] XR CHEST 2 VWSon 03-05-2024 XR CHEST 2 VWS XR CHEST 2 VWS XR CHEST 2 VWS HISTORY: Chronic back pain COMPARISON: 05/11/2020, CT chest 06/01/2022 FINDINGS: PA and lateral upright films obtained. Mild cardiomegaly. Uncomplicated appearance of dual chamber pacemaker. No pneumothorax or pleural effusion. No consolidation. Unchanged appearance of calcified granulomas in the right lower lobe. Exaggerated kyphosis and degenerative changes of the thoracic spine. IMPRESSION: No evidence of acute cardiopulmonary disease. No significant interval change from prior study Approved by Danisha Britt DO on 03/05/2024 10:39 AM IMaicol MD have personally reviewed the image(s) and agree with and/or edited the report Finalized by Maicol Baxter MD on 03/05/2024 2:03 PM Normal [facility] Surgical Pathologyon 024 Surgical Pathology Normal [facility] Comment on above: Result Comment: [facility] [address] [place] [address] Surgical Pathology Consultation Patient Name:HAYLEY GRIMMB:1950 (Age: 73)Gender:FTaken:4Reported:4Physician(s):Griselda Andino M.D. ([phone])Copy To: Rec. #:[id number]: #[id number] Final Pathologic Diagnosis Right vulva, biopsy: Lichen simplex chronicus Comment: Immunostains were performed with adequate controls. Results show the following: p53 and p16 stain in a benign pattern Report Electronically Signed Out nsk/02/02/2024Karin Nielsen MD Interpretation performed at [facility], [address] [place] [id number], License number: [id number]. Clinical History Chronic vulva vaginal itching. Gross Description Received in formalin labeled Zenia GRIMM vulva is a single taylor-white to taylor-alba unoriented punch biopsy of epithelial-covered soft tissue, 0.3 cm in diameter and excised to a depth of 0.2 cm. The surgical margin is inked teal and the specimen is submitted intact in a single cassette. (1, ns, [id number], m6) MG mj/01/30/2024GR Specimen(s) Received Right vulva Fee Codes(s): 1; 61120, 81018, 03229 URINALYSISon 01-02-2024 Bilirubin Ql (U) Negative Normal NEG [facility] Comment on above: Performed By: #### U A #### [facility] ([id number]) [address] [place] [address] BLOOD/HGB Negative Normal NEG [facility] Comment on above: Performed By: #### U A #### [facility] ([id number]) [address], [address] [place] [address] Color (U) YELLOW Normal YELLOW [facility] Comment on above: Performed By: #### U A #### [facility] ([id number]) [address], [address] [place] [address] Glucose Ql (U) Negative Normal NEG [facility] Comment on above: Performed By: #### U A #### [facility] ([id number]) [address], [address] [place] [address] GRANULAR CASTS 4 /lpf High 0 [facility] Comment on above: Performed By: #### U A #### [facility] ([id number]) [address], [address] [place] [address] Hyaline casts LM Ql (Urine sed) 5 /lpf High 0-2 [facility] Comment on above: Performed By: #### U A #### [facility] ([id number]) [address], [address] [place] [address] Ketones Ql (U) Negative Normal NEG [facility] Comment on above: Performed By: #### U A #### [facility] ([id number]) [address] [facility], [address] [place] [address] Leukocyte esterase Test strip Ql (U) Negative Normal NEG [facility] Comment on above: Performed By: #### U A #### [facility] ([id number]) [address], [address] [place] [address] MUCOUS PRESENT Abnormal NONE [facility] Comment on above: Performed By: #### U A #### [facility] ([id number]) [address], [address] [place] [address] Nitrite Ql (U) Negative Normal NEG [facility] Comment on above: Performed By: #### U A #### [facility] ([id number]) [address], [address] [place] [address] pH (U) 6.0 [pH] Normal 5.0-8.5 [facility] Comment on above: Performed By: #### U A #### [facility] ([id number]) [address] [facility] [facility] [place] [address] Protein Ql (U) 30 mg/dL Abnormal NEG [facility] Comment on above: Performed By: #### U A #### [facility] ([id number]) [address], [address] [place] [address] R.B.CELLS <1 Normal 0-5 [facility] Comment on above: Performed By: #### U A #### [facility] ([id number]) [address] [place] [address] Specific gravity (U) [Rel density] 1.020 Normal 1.003-1.035 [facility] Comment on above: Performed By: #### U A #### [facility] ([id number]) [address] [place] [address] SQUAMOUS EPITHELIUM 13 /hpf High 0-5 [facility] Comment on above: Performed By: #### U A #### [facility] ([id number]) [address] [address] [place] [address] TURBIDITY CLEAR Normal CLEAR [facility] Comment on above: Performed By: #### U A #### [facility] ([id number]) [address] [place] [address] Urobilinogen (U) [Mass/Vol] mg/dL Normal <1.1 [facility] Comment on above: Performed By: #### U A #### [facility] ([id number]) [address], [address] [place] [address] W.B.CELLS 2 /hpf Normal 0-5 [facility] Comment on above: Performed By: #### U A #### [facility] ([id number]) [address] [place] [address] URINE CULTUREon 01-02-2024 Bacteria identified Cx Nom (U) CULTURE RESULTS 10-50,000 ORGANISMS/mL NORMAL UROGENITAL ANKIT Normal [facility] Comment on above: Performed By: #### 6 30-4 #### [facility] ([id number]) [address], [address] [place] [address] VAGINITIS PANEL PCRon 2023 VAGINITIS PANEL PCR BACT. VAGINOSIS DNA Detected (qualifier value) Qualitative results are reported based on detection and quantitation of targeted organism markers which include: Lactobacillus spp. (L. crispatus and L. jensenii), Gardnerella vaginalis, Atopobium vaginae, Bacterial Vaginosis Associated Bacteria-2 (BVAB-2) and Megasphaera-1 KAITLIN SPECIES DNA Not detected (qualifier value) Kaitlin species not detected include: C. albicans, C. tropicalis, C. parapsilosis or C. dubliniensis KAITLIN KRUSEI DNA Not detected (qualifier value) No Kaitlin krusei detected KAITLIN GLABRATA DNA Not detected (qualifier value) No Kaitlin glabrata detected TRICHOMONAS VAG DNA Not detected (qualifier value) No Trichomonas vaginalis detected NOTE BD MAX Vaginal Panel has not been evaluated for patients under 18 years old. Results for these patients should be reviewed and assessed in accordance with clinical presentation to determine patient diagnosis. Normal [facility] Comment on above: Performed By: #### V PPCR #### [facility] ([id number]) [address] [place] [address], [address] [place] [address] POCT Glucose Levelon 024 Glucose, POC see comment Invalid Interpretation Code 74-118 [facility] Comment on above: Result Comment: Dupl icate results removed during lab audit (go live with interface) 12/21/2023 11:56:56 EDT SD Performed By: #### [id number] ####[facility] (DEFAULT)[address] [place] [address] VAGINITIS PANEL PCRon 2023 VAGINITIS PANEL PCR BACT. VAGINOSIS DNA Not detected (qualifier value) Qualitative results are reported based on detection and quantitation of targeted organism markers which include: Lactobacillus spp. (L. crispatus and L. jensenii), Gardnerella vaginalis, Atopobium vaginae, Bacterial Vaginosis Associated Bacteria-2 (BVAB-2) and Megasphaera-1 KAITLIN SPECIES DNA Not detected (qualifier value) Kaitlin species not detected include: C. albicans, C. tropicalis, C. parapsilosis or C. dubliniensis KAITLIN KRUSEI DNA Not detected (qualifier value) No Kaitlin krusei detected KAITLIN GLABRATA DNA Not detected (qualifier value) No Kaitlin glabrata detected TRICHOMONAS VAG DNA Not detected (qualifier value) No Trichomonas vaginalis detected NOTE BD MAX Vaginal Panel has not been evaluated for patients under 18 years old. Results for these patients should be reviewed and assessed in accordance with clinical presentation to determine patient diagnosis. Normal [facility] Comment on above: Performed By: #### V PPCR #### [facility] ([id number]) [address] [place] [address], [address] [address] HERPES SIMPLEX VIRAL PCRon 0 11-20-2023 HERPES SIMPLEX VIRAL PCR SPECIMEN SOURCE VAGINAL LESION HERPES SIMPLEX 1 PCR Negative (qualifier value) HSV 1 DNA Not Detected HERPES SIMPLEX 2 PCR Negative (qualifier value) HSV [address] [facility] Comment on above: Performed By: #### H SV12 #### [facility] ([id number]) [address] [place] [address], [address] [address] VAGINITIS PANEL PCRon 2023 VAGINITIS PANEL PCR BACT. VAGINOSIS DNA Not detected (qualifier value) Qualitative results are reported based on detection and quantitation of targeted organism markers which include: Lactobacillus spp. (L. crispatus and L. jensenii), Gardnerella vaginalis, Atopobium vaginae, Bacterial Vaginosis Associated Bacteria-2 (BVAB-2) and Megasphaera-1 KAITLIN SPECIES DNA Not detected (qualifier value) Kaitlin species not detected include: C. albicans, C. tropicalis, C. parapsilosis or C. dubliniensis KAITLIN KRUSEI DNA Not detected (qualifier value) No Kaitlin krusei detected KAITLIN GLABRATA DNA Not detected (qualifier value) No Kaitlin glabrata detected TRICHOMONAS VAG DNA Not detected (qualifier value) No Trichomonas vaginalis detected NOTE BD MAX Vaginal Panel has not been evaluated for patients under 18 years old. Results for these patients should be reviewed and assessed in accordance with clinical presentation to determine patient diagnosis. Normal [facility] Comment on above: Performed By: #### V PPCR #### [facility] ([id number]) [address] [place] [address] [address] [place] [address] Coding Summaryon 11-02-2023 Coding Summary HTMLBase 64 DaghipukUEd5yIl+PGhl YWQ+LU0VNRGqC17zsKHo nA8yG1GYMDlAJtdhHTBO NGmLWpHxsfRzLT1zePZu ZXJu IC8+KE3oTCHmKfbznTSm l6J7lCX3A56osh4jEEah tBC8QRHwXcDollmjb6rd iFo6QPcqWenmDvTi UDOngS88TKX9cH57Rw44 vTWihXRao2qssYh5UjXq MZRxICW8gLuhGGryg6Gz MGQhA12sbRMub2I9 IGNvbGxhcHNlOyBlbXB0 iT2sGKyhyupqh7mwxpkn Qov2hg88dPJkw0M1oFY0 B3SvajB3JBIluVHx GmrtmVUDnX7oxaahh0ri yzfpCyJwDSWvDSw3DEx5 NXDhcGuzXxNuMR32SZG3 NTUcrdEqJ3JhNTSa lDynAfZ8m5Y9Pr3GQ9NW EqwhO3MCUPXEXVmgcGE+ DE86me79N5LcXoibYxi7 TBClJLZ5sXH4oA0s GWSwEVfip1G8eWN2P9Il xvVzbu9qs3cdTFRoICep V76hnPYmi8K7NGJffQD4 IDEsqMnfTlNvuZ69 Oyc+LDLzdZwpi9NpMgyl y2vgt5jlcAr9WwmjPTOj dbEkzKhuYEP7t6CwSj3c DJFpqNQ8iMZ5dS1f OqFlXxS9HXzhS921XgOq eLKwSlysA96pZ3FiyXW+ SHQbVpm0NCMefYurFD5i E3NdLJUjsekbdGXb pOhvSW3yRJWoheisYKXx cB2fGXPgV8t9BxHdWxP8 VChvM6HzRIEpxmgyLd23 yY9iLfUmWrJ9HNak D2ZxqbM4CBDvtMOjVVti PWD0E10mo4I2ZNFkYDDc OJZ6mYJ8aX8ncJxdkskd bGVmdDsgdmVydGlj SOwkQPlgR366PVZixGsz PkNvZGluZyBEYXRlOiAg MDUvMDIvMjAyNDwvdGQ+ MPUsBNW5gTyeBWPi iCRrKUveGo3pkTzgjSdm BO8rPTVoqulwFSBsvP3c CRZlsMFseSvaPF3pGHCe edebk387MpFuSRF6 PUNqvNAbN0NhtR2jGyDw YPXuUAErP4VmoKVjSXrr V642LXobWyS2SYEpnrAb W5JnNDMfoByePuN0 i6R7Lj9Yl3AouawpU1Pk zGPfHqMgVpjyDRq2Z4Ed PjwvdHI+HB81FRHzCK06 ROc6YVX3cXmcPVxu TMJoF4LufU1uMhBfLCGq ZGRkOyc+PHRhYmxlIHdp ZHRoPScxMDAlJyBzdHls JD8vLz1oNJUzKLIk yGncnPBjCjIfw8qqOTEh WHrgFK1adIepT9TbkFQ6 QVNdm6x1Af10U88oL1Wh dXA+UDUooGP3pDC9 dR4yJoBrZjA9UHfsB889 CnCsoSXbYghif8kcm6if lOy6TmJ0QCNqxhHczNdi VBE4j0KfTj59D04q IHdpZHRoPSIxNSUiIHZh eNxiro3rvA3fWz0+PGNv tOO8vFC2mX3fWhFbDdT3 WHytR130IhAioMZc Ukkhd3vxq8snzQb2VsLr JUHopdKvdUvxJFZ7t5Eq Zs40Q0LoxLgrg6LzCpa0 ko77gNSfi1N8iXF5 G8LtBAFbeybxmHXdgEpr KP8vQLKqzquiNKWrwK4h DSDhN0x0OiQiNeV3EWzj S3McoxC6PURyaFBu CHPqmXXBjX1pcjsto8cl vjtdXwXrVAAtZYn4JId1 IBYmsUblJwEyQIN2PhC9 SUK0jQIouY1rzFhe qwslbS7xJlg+DGM3sWKz mGQKLC7mInbqwAC+PHRk DMN4xNebNQkbTTNruP5l GXYuW6o1HsGhVzP1 COxhR3YomkQ4NSOsuFRj LODxlEACzG7mncykh6fg qygvSjWmWYKtQLe7VRd1 LWFsaWduOiBsZWZ0 OpH3DEK0pQFznG2scGnt bjarnC8iKrg+QmlydGgg TOC8GGc9K9VbGon7FGOz nAtpWA9aaTLjZRqv Mb2zmItouJvkIK2oMMHh lhohc767EuVjl3nkCXHz sNToYNtgNQN9Q62zo8Z8 GXObTRVfPKB8xBW0 cW7hmMnbqupcjEHnwJgj kcXmvSeoTWrwCGacN675 WVJciHoxMnCjQHl6H1Bc Yag4NXLrrAtdLD8y qVRlORqbMa5ldTvwaTra GU7cKJCdjkzgd536HiRa w3adYAKlyDFiPAnkTDI7 V47ac5Y0ZPBoOUPx RYQ3zNY6zQ0pmMmpqxck bGVmdDsgdmVydGljYWwt BKvmC006FTPntCprUjAf qZj5S1CyJcm1VPWt fOjlUP4fnVPzMKnuFb1z oSptbYlyPL0lUDJauxyb k436CiYtt9eaVESouUIh AAwgJRZ5E51ab5Y8 EWPqXHYsZUD1nLS2rU8r bGlnbjogbGVmdDsgdmVy zCmrRRcxZOxtY178RCOq cDsnPlBhdGllbnQg IZgvJJg7K8KhWvoikMO+ OC47GTZoIS13nVTzdWNc o3povUs6MzCmYFSzSUI9 tGqjBKqpg8JuETDm E23jwYAth2W0QCPefUjx gOCwMgEqeWP5uW7tIOqu twxze7ngzeugJsypc9oc pd35xB36N36nUGvr ZHRoPSIzMCUiIHZhbGln pz0acF2bFv9+PGNvbCB3 fYE4fP1kJGGwNeF3FEui T183XkKqxHDbCurg q0mjj7lqeXw7TlP4SUWi qdYdiQulNNO6d0SfGi14 M93hPBecKKQqSLVcRNPi EZYssJuxif6ycO2b Ii8+IDXidLB6tHL7bF4m NcXsHiZ9TTngH118VqTq sNTcNjmwC02sY6HjkDV+ JNGyLkz7XYWwjDzy PJ3byUHsEYykFu4gVGA4 MtBmAuVuGOpeF0VqATLm usngpgwgwXQ9UOTyETFi kR79Vj0loBumJVIy pITPfU0afmoft9afpirh PwOaOPYmLZb6YVa5WKZi zLcqYcPwXAX0CqK6VWH0 zTGmxR2muUwilfov tQ4nJ2HwBMYcgertDd54 vH5gGnZqIhG8JZvpEui+ UkFEVEtFLCBaRUxMQTwv dGQ+BSAtUDG3rUse LZsqZKOppV7uAOHpF2u4 XhLwBqS9ZUbrN4JaHKGx rqtjGn05tF4xXcTsXhT5 WOxtM9MelmR9TBTg wUStMVikUDN7R16fx9S2 ZUKtJERgGKA6bWK5sX4x bGlnbjogbGVmdDsgdmVy rPznDXqhYMdeB042 VKYzdWavYtD5AnLoLsZ7 UZs9L3ZgXli7RUYcqOni CZ1lgJEyIZiiSy3vaPkg rErxSD8cBGQkwdds ISCwoH0eIHKahNCubQuf QC9mFTVslmnsr317FoLm HDM0CXKhcUEgX9QczO0a YeCgUCSbTHJzG6Zs bXWxVLexT905IEhsWeV1 LYBtdwQaH9SmMDBmbLhp TwM8q6P6Pv40HLQUMPTw czwvdGQ+PHRkIHN0 tPsnYJqjRNEueO8cACNg F0h9HfEjOiX2USdqM6Du KRXagalcUw77nE5xGnLq BjP1FGmtR8NmmoE3 PPKzhLMrVQofDZC4I85t w9U1TKBgCORuMXL8tXZ7 oC8qtEjuppcnhZYbvMbe dmVydGljYWwtYWxp K582BJXodZgkTdPTUDZZ RTwvdGQ+ERArZQC0tMht LNcqXGDrwY0qDBDzV3c0 VkIdJhH7FKhzG1Hc OYNjbxxhVm25lU7mVbFr KoY3USjvR1NvfyL3GSKy nBBwHQzmHTI3M17rc9X6 QZNrXOGpGID9jCP5 yN8xaIaapjooxLRavRnn obQduOiyOAsnROolR545 IHRvcDsnPkRheSBTdXJn WIN8LP14HZ03I4Iw PjwvdGFibGU+PHRhYmxl IHdpZHRoPScxMDAlJyBz zEamMD7fJb8kYCYnGFLi oWylyTVdDjCqa5pl UHBuNErmDB4svZnaE8Gj wHX9ZHJjt2l1Tl39H01g G3SctAB+BNTmtFG2aTC2 vS4yHjXoFwL2BUmo W229UbQeqXFlBcdzf3om n3zcwUh0IhDvLNNsfhSu aRguGHX6g5IaZv54Q33m IHdpZHRoPSIyMCUi YAUioYrwlo0qzD9qEc8+ MUIwkWO2eDQ5rW9jUnMr QfI1TMbwD594HlAseBGt RchqJ01nX7CunXS+ UVYlBej3KWPpsGizAH7y fWSaXQplUd5nKYL3UuTr YlKfPSxmX5ToSENflbfk fakuxJX0ZOCwJPKs eA74Wk2tgXxrDw5gQWCy JXL8FILjjKQoA9YptJ9v CzHqVRNbNFGhF4ZuyPAv WXzvI674TGlzUrB6 AEEdtuDyZ7WjIUZsnHat HaY7y5M8Bw5XfGxbwZQv LE5lQhYlYFi0D3NtCtn0 JTCtfZvtMP9okVEf ZJbyGb7ehKfoqXewUH9q CAGsvujjn226PkVje4pc DREwpJKhLSbjCHD6D76a a7Y6RKRqJGFwFEW8 fTO2wN4nzQloexwtgSKl dDsgdmVydGljYWwtYWxp I714OFSusXjoSbRLIsg5 F5IjIkx2PEDbwIsz EN2heWStYKdtHx6ldObr bVxjKI6kOVVgpzfkw828 WyNfd4ryPCLabQYhOGww RRH1L34zy1I3EGIt PZRvGAE1wUX6yU3geYhl bjogbGVmdDsgdmVydGlj LDojKRjaP031PVPesWol Au0NPal9H3XdDzz0 ZHUkpIyeGC9efCTwRWzb Kf6zeOqugWxgRE5sMPXn allnk582CpGuz3tlJDCo zAGcYCemEKQ2O42e u6Z1SRRiOZMyCQV0mNN0 bJ0krJxjzufpgVCgtSvq qjGvkHykETrnLXkxR011 IHRvcDsnPlBheWVy OjwvdGQ+JM02dw66M4Dg YqeiJkz8DQSsXXE4sSM6 hX8kSHHiDHtwn9D9vKV7 N0UjfwEbdj0ja4zf YXB (more content not included)... Normal [facility] MAGR Intraoperative Recordon 11-01-2023 MAGR Intraoperative Record MAGR Intra-Op Record Summary Primary Physician: Paris Stone DO Finalized Date/Time: 11/01/23 08:42:32 Pt. Name: ALFA DAYANNAJENNY Flores/Sex: 1950 FEMALE Med Rec #: [id number] Physician: Paris Stone DO Financial #: [id number] Pt. Type: D Room/Bed: / Admit/Disch: 10/30/23 10:44:52 - 10/30/23 13:25:00 Institution: Case Times MAGR Entry 1 Patient In Room Time 10/30/23 11:53:00 Out Room Time 10/30/23 12:21:00 Anesthesia Start Time 10/30/23 11:53:00 Stop Time 10/30/23 12:20:00 Surgery Start Time 10/30/23 12:05:00 Stop Time 10/30/23 12:15:00 Last Modified By: Tereza Kincaid RN 10/30/23 12:28:45 Case Attendance MAGR Entry 1 Entry 2 Entry 3 Case Attendee Paris Stone Debra RN Wilkins LEAD TECHNICIAN, Betty PARISI Role Performed Surgeon - Primary Outside Event Sales Specialist R&D Lab Technician Time In 10/30/23 12:00:00 10/30/23 11:53:00 10/30/23 11:53:00 Time Out 10/30/23 12:10:00 10/30/23 12:21:00 10/30/23 12:21:00 Procedure Trigger Finger Trigger Finger Trigger Finger Release(Right) Release(Right) Release(Right) Last Modified By: Tereza Kincaid RN, Debra RN Myers, Debra RN 10/30/23 12:28:51 10/30/23 12:28:51 10/30/23 12:28:51 Entry 4 Entry 5 Entry 6 Case Attendee Tyler Ashley CST, Debra RN Gorty, Satya S MD Role Performed Scrub Personnel Outside Event Sales Specialist Anesthesiologist of Record Time In 10/30/23 11:53:00 10/30/23 11:53:00 10/30/23 11:53:00 Time Out 10/30/23 12:21:00 10/30/23 12:21:00 10/30/23 12:21:00 Procedure Trigger Finger Trigger Finger Trigger Finger Release(Right) Release(Right) Release(Right) Last Modified By: Tereza Kincaid RN, Debra RN Myers, Debra RN 10/30/23 12:28:51 10/30/23 12:28:51 10/30/23 12:28:51 Surgical Procedures MAGR Pre-Care Text: A.20 Verifies operative procedure, surgical site, and laterality Im.150 Develops individualized plan of care Entry 1 Procedure Trigger Finger Release Primary Procedure Yes Primary Surgeon Paris Stone Right Ren DO Surgeon Comment Trigger Finger release Start 10/30/23 12:05:00 right index finger Stop 10/30/23 12:15:00 Anesthesia Type MAC Surgical Service Orthopedics Wound Class Clean Technique Details Closure Technique Primary Entire procedure No was performed via laparoscope or robotic assistance Last Modified By: Tereza Kincaid RN 10/30/23 12:29:11 Post-Care Text: O.730 The patient's care is consistent with the individualized perioperative plan of care General Case Data MAGR Pre-Care Text: A.350.1 Classifies surgical wound Entry 1 Case Information OR MAGR OR 01 Case Level Level 3 Wound Class Clean Specialty Orthopedics ASA Class 4 Diagnosis Preop Diagnosis Trigger finger Rt index Postop Same As Preop Yes Postop Diagnosis Trigger finger Rt index Blunt or No Is the procedure No penetrating injury considered occured prior to Emergent/Urgent? the start of the procedure: Last Modified By: Mindy Baker RN 11/01/23 08:42:30 Post-Care Text: O.760 Patient receives consistent and comparable care regardless of the setting Time Out MAGR Entry 1 Procedure(s) Trigger Finger Release(Right) Time Out Checklist Verifications Team Introductions Yes Confirmed Identity, Yes Completed Procedure, Incision Site, and Consent(s) Presence of Yes Site Verification, Yes Necessary Site Marking, Site Procedural Marking Equipment, Devices, Alternative, and/or and Implants Site Marking Verified Exception in Accordance with Facility Policy Anesthesia Review Antibiotic Received n/a All Anesthesia Yes Within an Concerns Addressed Appropriate Time Interval Prior to Surgical Incision Surgeon Review Anticipated Blood Yes Expected Case Yes Loss Risk Addressed Duration Addressed Critical and Yes Non-Routine Steps to be Performed Addressed Nurse Review Equipment Yes Fire Risk Yes Checks/Concerns Assessment Addressed Completed and Interventions Performed Diagnostic and Yes Sterilization Yes Radiological Test Concerns Addressed Results Displayed are Appropriate and Labeled Other Concerns Yes Addressed Time Out Paris Stone Time Out Time 10/30/23 12:04:00 Participants Codi Mcclure DO, Debra RN, Arnaldo LEAD TECHNICIAN, Betty LEAD TECHNICIAN CSFA, Tyler Ashley LEAD TECHNICIAN, Kash Amaya MD Last Modified By: Tereza Kincaid RN 10/30/23 12:06:23 Patient Positioning MAGR Pre-Care Text: A.280 Identifies baseline musculoskeletal status Im.40 Positions the patient Im.80 Applies safety devices Entry 1 Procedure Trigger Finger Body Position Supine Release(Right) Left Arm Position Extended on padded arm Right Arm Position Extended on padded arm board board Left Leg Position Extended Right Leg Position Extended Feet Uncrossed? Yes Press Points Checked Yes Positioning Device Arm Boards, Arm Strap, Outcome Met (O.80) Yes Pillow, Safety Strap Last Modified By: Tereza Kincaid RN 10/30/23 1 (more content not included)... [facility] Consent Formson 10-31-2023 Consent Forms 100.64... [id number]# 1.[facility] Consultation/Specialist Note on 10-31-2023 Consultation/Special ist Note 100... [id number]#1 [facility] Discharge Instructions [id number]#1 [facility] Im[facility]able Deviceson 2023 Implantable Devices [id number]# [facility]-2023 Outside Records [id number]# [facility] 10-30-2023 Anesthesia Note Patient: DAYANNA GRIMM Age: 72 years Sex: FEMALE : 1950 Associated Diagnoses: None Author: Kash Amaya MD Postoperative Information Post Operative Note: Post Anesthesia Care Unit. Health Status Allergies: Allergic Reactions (All) Moderate Cortisone- Breathing problem and rash. Levaquin- Breathing problem and dizziness. Zithromax- Nausea and vomiting and rash. Nonallergic Reactions (All) Moderate Bactrim DS- Nausea and vomiting. Physical Examination VS/Measurements Vital Signs 10/30/2023 12:22 EDT Temperature Temporal Artery 35.8 DegC LOW Temperature Temporal Artery (DegF) 96.44 DegF LOW Heart Rate Monitored 60 bpm Respiratory Rate 14 br/min Systolic Blood Pressure 114 mmHg Diastolic Blood Pressure 62 mmHg Mean Arterial Pressure, Cuff 79 mmHg SpO2 94 % Oxygen Flow Rate 8 L/min Oxygen Therapy Blow-By SpO2 Location Left hand General: No acute distress. Respiratory: Respirations are non-labored. Review / Management Condition: Stable. Assessment Anesthetic outcome No anesthetic complications noted. Adequate pain relief. No Complaint of nausea and vomiting. Plan Transfer/ Discharge: Patient can be discharged from PACU when criteria met. Condition stable. [Electronically Signed on: 10/30/2023 12:42 EDT] Kash Amaya MD [Verified on: 10/30/2023 12:42 EDT] Kash Amaya MD [facility] Anesthesia Note Patient: DAYANNA GRIMM Age: 72 years Sex: FEMALE : 1950 Associated Diagnoses: None Author: Kash Amaya MD Preoperative Information Anesthesia history: Patient history: No difficult intubation, No malignant hyperthermia. Family history: No malignant hyperthermia. Review of Systems Respiratory: No shortness of breath, No apnea. Cardiovascular: Af - pacer dependent, No chest pain. Gastrointestinal: Heartburn. Health Status Allergies: Allergic Reactions (All) Moderate Cortisone- Breathing problem and rash. Levaquin- Breathing problem and dizziness. Zithromax- Nausea and vomiting and rash. Nonallergic Reactions (All) Moderate Bactrim DS- Nausea and vomiting. Current medications: Home Medications (12) Active esomeprazole 20 mg oral delayed release capsule 20 mg = 1 cap(s), Oral, Daily HumaLOG , Subcutaneous levothyroxine 25 mcg (0.025 mg) oral tablet 25 mcg = 1 tab(s), Oral, Daily losartan 25 mg oral tablet 25 mg = 1 tab(s), Oral, Daily lovastatin 40 mg oral tablet 40 mg = 1 tab(s), Oral, Daily meclizine 25 mg oral tablet 25 mg = 1 tab(s), PRN, Oral, TID metoprolol tartrate 1 tab(s), Oral, BID ondansetron 8 mg oral tablet 8 mg = 1 tab(s), PRN, Oral Ozempic 2 mg/1.5 mL (0.25 mg or 0.5 mg dose) subcutaneous solution 0.25 mg, Subcutaneous, qMonday sertraline 100 mg oral tablet 100 mg = 1 tab(s), Oral, HS Vitamin D3 50,000 intl units oral capsule 1,250 mcg = 1 cap(s), Oral, qMonday Xarelto 20 mg oral tablet 20 mg = 1 tab(s), Oral, qPM Problem list (past medical history): All Problems Renal dysfunction / SNOMED CT 05160320 / Confirmed Anxiety / SNOMED CT 97862752 / Confirmed Afib / SNOMED CT 63716897 / Confirmed Depression / SNOMED CT 196818298 / Confirmed Diabetes / SNOMED CT 446257784 / Confirmed Acid reflux / SNOMED CT 191329378 / Confirmed HTN (hypertension) / SNOMED CT 6354749427 / Confirmed Hypothyroid / SNOMED CT 67650524 / Confirmed DJD (degenerative joint disease), lumbar / SNOMED CT 606468002 / Confirmed Neuropathy / SNOMED CT 7671484353 / Confirmed Trigger finger / SNOMED CT 294853047 / Confirmed Vertigo / SNOMED CT 3261608346 / Confirmed Resolved: History of sleep apnea / SNOMED CT 156297557 Histories Family History: No family history items have been selected or recorded. Procedure history: History of total hysterectomy (7015663263). History of left total knee replacement (539676866838271). Cholecystectomy (35129672). Appendectomy (312520439). Cardiac pacemaker (50888561). Comments: 10/06/2023 10:29 Amber Gonzalez RN done in 2010 History of total replacement of right hip joint (868681392937691). Hernia (2926640132). Comments: 10/06/2023 10:32 Amber Gonzalez RN as a child, unknown location Trigger fingers of both hands ([id number]). Comments: 10/06/2023 10:33 Amber Gonzalez RN various fingers to both hands History of total arthroplasty of left shoulder (4495765493). Ankle (7031095). Comments: 10/06/2023 10:32 Amber Gonzalez RN right ankle surgery with hardware Social History Electronic Cigarette/Vaping Assessment Electronic Cigarette Use: Never. Alcohol Assessment Use: Never. Tobacco Assessment Never tobacco user Tobacco Use:. Substance Abuse Assessment Substance use: Never. . Physical Examination VS/Measurements Vital Signs (last 24 hrs) Last Charted Heart Rate Peripheral 85 bpm (OCT 29 10:53) Resp Rate 18 br/min (OCT 29 10:53) SBP 118 mmHg (OCT 29 11:09) DBP 83 mmHg (OCT 29 11:09) General: Alert and oriented, No acute distress. Airway: Mallampati classification: I (soft palate, fauces, uvula, pillars visible). Mouth: Within normal limits. Respiratory: Respirations are non-labored. Cardiovascular: Normal rate. Review / Management Results review: Lab results: 10/30/2023 11:10 EDT Glucose, POC 126 mg/dL HI . Laboratory Results ECG interpretation: V paced. Plan [place] [employer]#(A SA) physical status classification: Class IV. Anesthetic Preoperative Plan Anesthesia: Monitored anesthesia care. Anesthetic plan, risks, benefits, and alternatives discussed with the patient and/or family. Patient verbalized understanding. Family/Guardian present. Informed consent was given. Consent was signed by the patient. [Electronically Signed on: 10/30/2023 11:53 EDT] Kash Amaya MD [Verified on: 10/30/2023 11:53 EDT] Kash Amaya MD [facility] Inpatient Patient Summaryon 10-30-2023 [place] [address] Patient Discharge Instructions Name: DAYANNA GRIMM : 1950 Patient Address: [address] [place] [address] Primary Care Provider: Name: Naya Travis MD After you are discharged if you find you have any questions, please, call [phone] ext [phone] to speak to a nurse. Discharge Diagnosis: Trigger finger, right index finger Prescription Information: If you have been given a prescription for narcotics, seek immediate medical attention if you have any difficulty breathing or any sudden status changes such as confusion and sleepiness. If you or anyone you know is experiencing suicidal thoughts, mental health, alcohol and/or drug addiction problems; contact the [facility] 23/01 Crisis Hotline -Text 4HLYL sf 779626. If you received any narcotics, sedation, or any other medication that causes drowsiness for the next 24 hours, unless otherwise directed: ? Do not drive a car. ? Do not operate machinery such as power tools, lawn mowers, drills, sewing machines, or stoves ? Avoid alcoholic beverages and drugs for allergies, nerves, or sleep ? Do not make important personal or business decisions or sign any legal documents [facility] would like to thank you for allowing us to assist you with your healthcare needs. The following includes patient education materials and information regarding your injury/illness. DARYL GRIMMA has been given the following list of follow-up instructions, prescriptions, and patient education materials: Follow-up Instructions With: Address: When: Stan Schwab [address] [place] [id number] Business (1) 11/08/2023 10:15 AM Medications During the course of your visit, your medication list was updated with the most current information. The details of those changes are reflected below: Medications to Continue That Have Not Changed Other Medications cholecalciferol (Vitamin D3 50,000 intl units oral capsule) 1 cap(s) Oral (given by mouth) Every Monday. esomeprazole (esomeprazole 20 mg oral delayed release capsule) 1 cap(s) Oral (given by mouth) every day. insulin lispro (HumaLOG) Subcutaneous (under the skin). levothyroxine (levothyroxine 25 mcg (0.025 mg) oral tablet) 1 tab(s) Oral (given by mouth) every day. losartan (losartan 25 mg oral tablet) 1 tab(s) Oral (given by mouth) every day. lovastatin (lovastatin 40 mg oral tablet) 1 tab(s) Oral (given by mouth) every day. meclizine (meclizine 25 mg oral tablet) 1 tab(s) Oral (given by mouth) 3 times a day (scheduled) as needed for dizziness. metoprolol (metoprolol tartrate) 1 tab(s) Oral (given by mouth) 2 times a day (scheduled). ondansetron (ondansetron 8 mg oral tablet) 1 tab(s) Oral (given by mouth) as needed Nausea. rivaroxaban (Xarelto 20 mg oral tablet) 1 tab(s) Oral (given by mouth) once a day (in the evening). semaglutide (Ozempic 2 mg/1.5 mL (0.25 mg or 0.5 mg dose) subcutaneous solution) 0.25 Milligram Subcutaneous (under the skin) Every Monday. rotate injection sites. sertraline (sertraline 100 mg oral tablet) 1 tab(s) Oral (given by mouth) At bedtime. It is important to always keep an active list of medications available so that you can share with other providers and manage your medications appropriately. As an additional courtesy, we are also providing you with your final active medications list that you can keep with you. cholecalciferol (Vitamin D3 50,000 intl units oral capsule) 1 cap(s) Oral (given by mouth) Every Monday. esomeprazole (esomeprazole 20 mg oral delayed release capsule) 1 cap(s) Oral (given by mouth) every day. insulin lispro (HumaLOG) Subcutaneous (under the skin)., sliding scale, Patient will bring in the sliding scale chart with her on surgery day levothyroxine (levothyroxine 25 mcg (0.025 mg) oral tablet) 1 tab(s) Oral (given by mouth) every day. losartan (losartan 25 mg oral tablet) 1 tab(s) Oral (given by mouth) every day. lovastatin (lovastatin 40 mg oral tablet) 1 tab(s) Oral (given by mouth) every day. meclizine (meclizine 25 mg oral tablet) 1 tab(s) Oral (given by mouth) 3 times a day (scheduled) as needed for dizziness. metoprolol (metoprolol tartrate) 1 tab(s) Oral (given by mouth) 2 times a day (scheduled)., 25 mg ondansetron (ondansetron 8 mg oral tablet) 1 tab(s) Oral (given by mouth) as needed Nausea. rivaroxaban (Xarelto 20 mg oral tablet) 1 tab(s) Oral (given by mouth) once a day (in the evening). semaglutide (Ozempic 2 mg/1.5 mL (0.25 mg or 0.5 mg dose) subcutaneous solution) 0.25 Milligram Subcutaneous (under the skin) Every Monday. rotate injection sites. sertraline (sertraline 100 mg oral tablet) 1 tab(s) Oral (given by mouth) At bedtime. Take only the medications listed above. Contact your doctor prior to taking any medications not on this list. Diet & Activity (more content not included)... Normal [facility] MAGR Postoperative Recordon 10-30-2023 MAGR Postoperative Record MAGR Phase II Record Summary Primary Physician: Paris Stone DO Finalized Date/Time: 10/30/23 13:36:52 Pt. Name: DAYANNA GRIMM/Sex: 1950 FEMALE Med Rec #: [id number] Physician: Paris Stone DO Financial #: [id number] Pt. Type: D Room/Bed: / Admit/Disch: 10/30/23 10:44:52 - Institution: Phase II Case Times MAGR Pre-Care Text: Patient is free from s/s of injury. Patient remains free from compromised physical state related to surgery or anesthesia. Patient comfort maintained. Patient/family verbalize understanding of discharge instructions. Entry 1 In PACU II 10/30/23 12:22:00 Discharge from PACU 10/30/23 13:25:00 II Last Modified By: Francheska Be RN 10/30/23 13:36:46 Post-Care Text: The patient remains free from s/s of injury. Patient's vital signs stable, circulation maintained, return to preop mental and physical status, opsite/dressing intact, minimal or absent nausea and vomiting, tolerates po intake. Patient verbalizes adequate pain control. Patient/family express understanding of discharge instructions. Finalized By: Francheska Be RN Document Signatures Signed By: Francheska Be RN 10/30/23 13:36 [facility] Pre-Op Record Summary Primary Physician: Paris Stone DO Finalized Date/Time: 10/30/23 13:37:55 Pt. Name: DAYANNA GRIMM/Sex: 1950 FEMALE Med Rec #: [id number] Physician: Paris Stone DO Financial #: [id number] Pt. Type: D Room/Bed: / Admit/Disch: 10/30/23 10:44:52 - Institution: Pre-Op Case Times MAGR Pre-Care Text: Patient will be optimally prepared for surgery. Patient is free from s/s of injury. Provide information to patient/family related to plan of care. Verify patient allergies. Confirm identity and verify consent before the operative or invasive procedure. Entry 1 Patient Arrival Time 10/30/23 10:53:00 Preop Departure 10/30/23 11:51:00 Last Modified By: Francheska Be RN 10/30/23 13:37:49 Post-Care Text: Patient is prepared mentally and physically and is ready for surgery. The patient remains free from s/s of injury. Patient/family express understanding of plan of care and participate in decisions affecting his or her perioperrative plan of care. Allergies documented appropriately. Patient identifiers and consent correct. General Comments: pt arrives to [facility] ambulatory. denies CP,cough,cold, COVID like symtpoms. pt has diabetes and a pacemaker/defib, denies sleep apnea. pt verbalizes understanding of post op anesthesia orders including no driving for 24 hours. Finalized By: Francheska Be RN Document Signatures Signed By: Francheska Be RN 10/30/23 13:37 Normal [facility] POCT Glucose Levelon 024 Glucose [Mass/Vol] 109 mg/dL Normal 74-118 [facility] Comment on above: Result Comment: OPR_ ID=[email or web address],TGC FLAG = False,Meter:[id number] [employer] Instructor:[id number]rit[address] Performed By: #### 4 [id number] ####[facility] (DEFAULT)[address] [place] [address] Glucose [Mass/Vol] 126 mg/dL High 74-118 [facility] Comment on above: Result Comment: OPR_ ID=[email or web address],TGC FLAG = False,Meter:[id number] [employer] Technology Instructor:Jose Joao Goode Performed By: #### 4 [id number] ####[facility] (DEFAULT)[address] [place] [address] Patient Handouton 10-30-[address] STONE'S TRIGGER FINGER RELEASE INSTRUCTIONS: SURGEON'S WRITTEN INSTRUCTIONS: 1. Keep your hand elevated above your elbow for the first 24 hours after surgery. 2. Wiggle your fingers frequently while awake. 3. DO NOT lift heavy objects or gold wheel blocker and polisher forcefully with your hand. 4. Change your dressing as necessary to keep the wound clean and dry. 5. You may shower in 1 day but do not submerge your hand under water. 6. If you have any questions or concerns, please call the office at [phone] or go to the emergency room. 7. Follow up as scheduled. [facility] Progress Note - Nurseon 10-02 Progress Note - Nurse Pre-op call for 10-30-2023 surgery made- pt given arrival time of 1100 on 10-30-2023. 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 [Electronically Signed on: 10/27/2023 14:36 EDT] Maru Hobson RN [Verified on: 10/27/2023 14:36 EDT] Maru Hobson RN [facility] Coding Summaryon 10-16-2023 Coding Summary HTMLBase 64 BspaseuyBCp4hCp+PGhl YWQ+XX0TILSnA64kpEVa jP9lJ2VUQQrTWkfkZECT RGgQJpPydiEnOI9hgMZs ZXJu IC8+IM4pDWRiJccpmVPy v3E4jPV6Y11bol5xPBae vKW3FVOkUfAoxueqn3pj fGi2WEqjTwwdMcKc UINclW20AYJ3gT24Sm12 sEEqaAQnz0sgnOf4LoPf WBHcJLF1xWyqMEtdz2Ou AUDpF74alVNlt5O2 IGNvbGxhcHNlOyBlbXB0 vX3vQOqyzjcjt8zbpsqz Ltf9rc69aXYah1U9dWA5 Y6PiedS2KCAjoVEx HonqoSRTxI1mjthgl9sx rxvvOhEmLZDuNQn4TCt6 ORGlwEufVzYxRD98QBG7 BZGvcgGgS4LyGWPq mGviCoW4f1E1Vr4AR0HE CvjwW0JLTXGOEBvgfOK+ AS22at84I3OiEoszDhk6 HPPoBKP0rQT0tR0e WOMcMSowj3J7qFL8F8Ns irHfqi1qq1okHRYzGHwo N20hpTDjz2P4HDNvzJN2 IDVncOhbXlFgnS69 Oyc+ILMypWejf8FtZqst z5tte7cfqXc2YzolCBLs jsBrxRunKWY6u4JcUd1j WHMafJJ7hUA0zL8e CzTqFvM1OZesP165EgTp pESwInskD72tF8HwiGW+ IMMdFiq4KHJdsLwdSN7q V8RtYJBzgffwvNQj fSdwGS7uUPQrcyqsHPOx wQ6xTXYnR8d8DiQxRbS1 NAwcJ7NbOITjrwexXs98 cJ8mLcTaKfG5WZvc X0CnktZ6WCZkiGGvEYcf PKN7H56ut7J8NEBrLYJt JNS1jPU2qD9dfMgxnrya bGVmdDsgdmVydGlj PStwVZjoZ670JFHupSyz PkNvZGluZyBEYXRlOiAg MDQvMTUvMjAyNDwvdGQ+ OESuBLN0rZrxYUHx lXPjLZauMt5snTzbkAef IC5yVCQbefxvLBCkaZ0p QOXkiDKtiImfFU5vNYAo dqikm658TuJaMMZ5 ZHIfrVAtM6VoqU7eGiZq XQRjTYMeD1MkaJQbIZfp H165LWodHfY9LIVepoMz E3UbRVEmyXppZdX5 d3Y7Jj3Ei4VibkgbJ5Ex hRWsYhSkEyapGGd1X4Xh PjwvdHI+AT79EAMiVZ59 QBh7JTA2hXpqIDwz VVWdO5EsoE9pFmJbONYq ZGRkOyc+PHRhYmxlIHdp ZHRoPScxMDAlJyBzdHls TF9eAs1nONIcPOWv lDvzzKFjFhKqw2svIFLg HTcoJU3sqYkwN3FanPW0 KWYsv8r8Aa35R96nB1Av dXA+CRCzcYZ5xNO2 wR5pEhZnBeK6FWquE469 SjMrbWBkCkdkd3gkv4ql jUr9IiT6QUZjixIsyTkv HIJ1d4KvZv89P12j IHdpZHRoPSIxNSUiIHZh sQtrqk0heJ5dAq8+PGNv cIP9zTJ5xU1qNuYyPgW0 CAnuG790NzFmhNKh Siett4oln2dkyYt5CgEs BERaafWalStrTAI4k6Tb Ox02G2SmeHlny8WoAcw0 mi26uGMsg3S9hLT7 F9PwNJKlswnffZSkqBhc BY6wMXPqanpjKDBfiU1z BQVuK2z2AnTiDrK8UPzu P6TwclK5KRDfgKCc DFSrfULQzB4ckzraa6ax gfreQgKlKRNgUTq6WMd0 UJWenDdfFhQkHYF2NvO4 EMJ3tEFfzF7zkNlg ridqoF4nWjf+MDS3qAEt yBLWTX3kNcfbgHO+PHRk ARU3nPqsQIypJXYfzT6k WPJwU0a2WwGgKgP3 DKfoW4NaotK2XXMygURs YGVzyZKExA2ixtbxt1dp ijgoEuLpROTuZIt9QXt2 LWFsaWduOiBsZWZ0 RwW9XUR4zFOrlM9itHlz dbandI1nWli+QmlydGgg BYX4UCl0L5IeCem3BPHk dCnrGW3yeOEzYRbz Xe0zkIgslOdlKW9zSSBc cgrka037JrSfe1ibGKCt iGFhMYdrHWN5I04xf8P9 FXPdPIAvASY5mOW5 iG5ycYzmgpbruTIsoQwc zaUqdSidILjbPBauK002 CJQxlTlxJqCyJNq8C3Bc Osg0KXEgjGabIV2w eJYeOKwwSa4kgLrvjDot AM0wMUQwpkszj289GcQh z4qsJJMxxOAhUTwhZPQ1 U91ry4Q0GJRwKEEn LHR6fFE1aS0kvIfgxqan bGVmdDsgdmVydGljYWwt NPafT544QJVxtNcgDtNv fVc5R3NnMzw6HXEi fQqgGQ5teJNdHTojAf1c oCszqOuhYC8eUWTajhrd a975IwJau4piKSEywNWw POtrXPJ0N18kd5I6 NVRcALKmFAS5vVF0hK5i bGlnbjogbGVmdDsgdmVy ePomVAutEFpgJ873WGZo cDsnPlBhdGllbnQg UXbbMJj6J6ZqDtiezYL+ AW67LQVyOY03dMByfQFf t3tozPg0YuTwRAJaFTT3 zOdkOVjnk5BkJSWk D87edMVkc2V0LLDrzUcb tNUsZwDahMJ0tB0vURvm yssyn1odmjteJzvzy0rr id66zN19K18sTIsd ZHRoPSIzMCUiIHZhbGln xd1pnL7qHi0+PGNvbCB3 tMG6pU3oFXLuIdQ1BFey H941KdQllEAqOutj n4xkb8xolLp6GaE4VIHa xpCkaGasZLH2s5WvHe78 R48gIGozQKJbGFUqSVWo SYFrcCracc5hsZ6m Ii8+SUIaxGR0yMR7xB0h CqYzWjQ3YLovB746QaHf kYNtHphiB53mI1OnzLL+ KJAwFfk4QCZieEhz RH9efGNgBIviUg4oFVV5 VdBeUxPmJJsjY5LkZMUi ydachcqjhXB5NDJoSSMj dK52Iu7ixGlmZBYi iKNBiE2xiekru5envvpg ZnMsAJAnOAi4PAy8JGXe qDyaZzSxXNR6IeX3VXV4 bPOsjV2rhNtvxlux vP9fT0NuARYpaksfGc06 uY7tPoNvBiF7VVhyLdn+ UkFEVEtFLCBaRUxMQTwv dGQ+UFMpEOR5nIum EDcgBSMzjJ4rJWReP1f6 FyGsOgD3TUbgN1ZzCFSh wixcKr84aL8wTyGpMdJ1 KCvwM8MpggA2OHBf oNUpMSycWBY8U48ok7J6 SHVyCZZnQKX1qIY6fU6p bGlnbjogbGVmdDsgdmVy tPlaNZndDMhpZ600 ZUYhzPohTzZ6LhJoWpC8 YWj5G3HpIan9MMVqxLsu OY8hqRUhVQtvYm1nlUyw qTmpPX9sKOBsrmzc YSJeoS6yLJQkdHDjyOvx OT6lIMQeswrhz607AqBl JNO2DPGsxUVdA6SyrK5v TnQnRMRbSSLvX3Hr xZTbLHchE469FFhrMxQ7 PGTwaiVaB3IwZENnlDug BbI0a9S2Nh60LLIDTAJk czwvdGQ+PHRkIHN0 lDxcKMetCAOfyK9sMGPa V1t1VeNpEfM3ZIlsZ8Qm QBTbnebdJr75aF4uVkWq FyC2DFevG7RjjtC4 ZHRpvFZoIHhpIOK2V74i u6U7VDSjHCYoSCH3hNX9 uI1meNbtxgbaeZVhnYxc dmVydGljYWwtYWxp T507ZTYfuHdpAmJZFMKL RTwvdGQ+VNEaIEW8tRiz IMcoWJPgcP0vXAIqD4s1 HxQwMyT2GKakC4Sr IHBgcmgjAx44qF4iTjEj LxY5HSrjW0IguiE6PRYf uDDgEKchFWK8U27hq7R1 GICpHGMqQDM5dUH5 wU4ygIelqpyrxSIukZcp agBdoSyjDXpzDEbqY163 ETEjgIlqOf0CZV97ZB21 H9QbZnutgORwhYO+ PHRhYmxlIHdpZHRoPScx FTQdEzVlrQcmOW0nNh5z ZGVyLWNvbGxhcHNlOiBj e8viQWQsTMnwEW8z mYkrN2UsyNM9CSMrk9r8 Hp48J62wZ4AwpTL+PGNv lIW4oDT6jI3iOnFdGnR2 PVyvK354LlNodTRu Xuclf6onb4cjqEi0LqKt SDJmpuQzdUuuXQY8b9Wl At20L98dBAezDZOoDIQd DBPgBRYyoOjkmp3l qR1zMa5+QKBcsTC9kJK7 dY2tBtZmOgR7PWvuE222 FhOdjUFkNjroC66cT4Zx dXA+XRTcPlm0WFVs gCgqWN2eoVLoQOqiIz0i TBS1NiMrIaHsPRsxZ3Dr KHYqvifvosamxHL1AHMt MMYhcC56Qg2cqJwr Qo2eNJXfEBK2EFUlySSt L4WwiE8cYoQwAEGnTZSi U9AohNNvDZxkE782VHbr PtV8VMBaskMxA5Sn KSFuuIztEoF0u7L9Kz3T tIcvgKQxUL9fHcYqNGy5 Q4AuTpx5CJLezTvrTS8p kAFhZPzoOh7fzPrq cNqeZA6qGHQhirfuy952 JsLuc3uxSYNyhNJuIWop UAD6B86wp2Q4VFQqVMCl TFQ4mRQ1lG8zsHvr bjogbGVmdDsgdmVydGlj GNdrYIyyP237ICGvwCbn AyGMPfn1K7GjGep0NEAk uUnyON2ulYDyESld Lr5ysQjvdYqfFV4aVXPn hjanl605LkMop9neCBGr hAKwUVmlHIW6K27aq3T8 GGKhLWImVJD3eEU6 gK3wqTphevwzfWBrkVxo dpXvvEfbIYhsFDxcR746 OUBxdCmgCw7XFzp9G7Jz Ius1HEZdpDsdUZ8w bZYbQXvnLl9yrCnvnWlw ZY2aPXYvdlcfq849CyCc d3owVTJpuAKbYZbdDXT0 A07ns4R0JQDdNXKm JHS4fPV6yW5dzXoksqwc bGVmdDsgdmVydGljYWwt JNolK856QYNnyAgqUeJh eWVyOjwvdGQ+PC90 am62A1WnTnlhIak6UMGo LKT0lZE4uK8zTIVpWEud f9F5yAD0F4BoybZowe3b t7fhSVJvQTwqD90c bGF (more content not included)... [facility] Progress Note - Nurseon - Progress Note - Nurse PAT reviewed by Dr. White anesthesiology, no new orders received [Electronically Signed on: 10/09/2023 13:48 EDT] Kim Fernandez RN [Verified on: 10/09/2023 13:48 EDT] Kim Fernandez RN Normal [facility] .Auto Diff 1on 10-06-2023 Auto [place] % 8 % Normal 1-12 [facility] Comment on above: Performed By: #### 1 [id number], [id number], [id number] ####[facility] (DEFAULT)[address] [place] [address] 63355 Baso Abs# 0.1 x10 Normal 0.0-0.2 [facility] Comment on above: Performed By: #### 1 [id number], [id number], [id number] ####[facility] (DEFAULT)[address] [place] [address] 82914 Basophils/100 WBC (Bld) 1.1 % Normal 0.2-2.0 [facility] Comment on above: Performed By: #### 1 [id number], [id number], [id number] ####[facility] (DEFAULT)[address] [place] [address] 47468 Eos Abs# 0.2 x10 Normal 0.0-0.4 [facility] Comment on above: Performed By: #### 1 [id number], [id number], [id number] ####[facility] (DEFAULT)[address] [place] [address] 58534 Eosinophils/100 WBC (Bld) 2.3 % Normal 0.9-4.0 [facility] Comment on above: Performed By: #### 1 [id number], [id number], [id number] ####[facility] (DEFAULT)[address] [place] [address] 13373 Lymph Abs# 1.5 x10 Normal 1.3-2.9 [facility] Comment on above: Performed By: #### 1 [id number], [id number], [id number] ####[facility] (DEFAULT)[address] [place] [address] 45138 Lymphocytes/100 WBC (Bld) 17 % Normal 14-48 [facility] Comment on above: Performed By: #### 1 [id number], [id number], [id number] ####[facility] (DEFAULT)[address] [place] [address] [place] Abs# 0.7 x10 Normal 0.0-0.8 [facility] Comment on above: Performed By: #### 1 [id number], [id number], [id number] ####[facility] (DEFAULT)[address] [place] [address] Neut Abs# 6.3 x10 Normal 1.5-9.2 [facility] Comment on above: Performed By: #### 1 [id number], [id number], [id number] ####[facility] (DEFAULT)[address] [place] [address] Neutrophils/100 WBC (Bld) 72 % Normal 44-88 [facility] Comment on above: Performed By: #### 1 [id number], [id number], [id number] ####[facility] (DEFAULT)[address] [place] [address] BMP Standardon 10-06-2023 eGFR Non AA 30 mL/min/1.73m2 Invalid Interpretation Code [facility] Comment on above: Performed By: #### 1 [id number], [id number], [id number] ####[facility] (DEFAULT)[address] [place] [address] eGFR AA 36 mL/min/1.73m2 Invalid Interpretation Code [facility] Comment on above: Performed By: #### 1 [id number], [id number], [id number] ####[facility] (DEFAULT)[address] [place] [address] Anion gap [Moles/Vol] 11.9 mmol/L Normal 5.0-19.0 [facility] Comment on above: Performed By: #### 1 [id number], [id number], [id number] ####[facility] (DEFAULT)[address] [place] [address] Calcium [Mass/Vol] 9.7 mg/dL Normal 8.9-10.3 [facility] Comment on above: Performed By: #### 1 [id number], [id number], [id number] ####[facility] (DEFAULT)[address] [place] [address] 78044 Chloride [Moles/Vol] 104 mmol/L Normal 101-111 [facility] Comment on above: Performed By: #### 1 [id number], [id number], 5608120 ####[facility] (DEFAULT)[address] [place] [address] 84348 CO2 [Moles/Vol] 26 mmol/L Normal 21-32 [facility] Comment on above: Performed By: #### 1 [id number], [id number], [id number] ####[facility] (DEFAULT)[address] [place] [address] 31201 Creatinine [Mass/Vol] 1.69 mg/dL High 0.60-1.30 [facility] Comment on above: Performed By: #### 1 [id number], 25097475, 3430978 ####[facility] (DEFAULT)[address] [place] [address] 33394 Glucose [Mass/Vol] 118.0 mg/dL Normal 74.0-118.0 [facility] Comment on above: Performed By: #### 1 [id number], [id number], 6707778 ####[facility] (DEFAULT)[address] [place] [address] 17452 Osmolality 283 mOsm/L Invalid Interpretation Code [facility] Comment on above: Performed By: #### 1 [id number], [id number], 5701556 ####[facility] (DEFAULT)[address] [place] [address] 28970 Potassium [Moles/Vol] 4.9 mmol/L Normal 3.6-5.1 [facility] Comment on above: Performed By: #### 1 [id number], 71465103, 0534373 ####[facility] (DEFAULT)[address] [place] [address] 94010 Sodium [Moles/Vol] 137.0 mmol/L Normal 136.0-144.0 [facility] Comment on above: Performed By: #### 1 [id number], [id number], 3046720 ####[facility] (DEFAULT)[address] [place] [address] Urea nitrogen [Mass/Vol] 35 mg/dL High 8-26 [facility] Comment on above: Performed By: #### 1 [id number], [id number], 7349638 ####[facility] (DEFAULT)[address] [place] [address] Urea nitrogen/Creatinine [Mass ratio] 20.7 mg/mg High 4.6-16.2 [facility] Comment on above: Performed By: #### 1 [id number], [id number], 1940623 ####[facility] (DEFAULT)[address] [place] [address] CBC w/ Auto Diffon Erythrocyte distribution width (RBC) [Ratio] 14.3 % Normal 11.5-15.0 [facility] Comment on above: Performed By: #### 1 [id number], [id number], 5642260 #### [facility] (DEFAULT) [address] [place] [address] Hematocrit (Bld) [Volume fraction] 37.6 % Normal 33.7-40.4 [facility] Comment on above: Performed By: #### 1 [id number], [id number], 9015608 #### [facility] (DEFAULT) [address] [place] [address] Hemoglobin (Bld) [Mass/Vol] 12.4 g/dL Normal 11.3-15.9 [facility] Comment on above: Performed By: #### 1 [id number], [id number], 0231791 #### [facility] (DEFAULT) [address] [place] [address] Man Diff? Auto Invalid Interpretation Code [facility] Comment on above: Performed By: #### 1 [id number], [id number], [id number] #### [facility] (DEFAULT) [address] [place], [place] [address] MCH (RBC) [Entitic mass] 30 pg Normal 24-34 [facility] Comment on above: Performed By: #### 1 [id number], 29963584, 5293570 #### [facility] (DEFAULT) [address] [place] [address] 37330 MCHC (RBC) [Mass/Vol] 33 g/dL Normal 26-37 [facility] Comment on above: Performed By: #### 1 [id number], [id number], 1051657 #### [facility] (DEFAULT) [address] [place] [address] 50146 MCV (RBC) [Entitic vol] 90 fL Normal 81-100 [facility] Comment on above: Performed By: #### 1 [id number], [id number], 0794389 #### [facility] (DEFAULT) [address] [place] [address] 22309 Platelet 195 x10 Normal 138-427 [facility] Comment on above: Performed By: #### 1 [id number], [id number], [id number] #### [facility] (DEFAULT) [address] [place] [address] 93358 Platelet mean volume (Bld) [Entitic vol] 7.1 fL Normal 6.3-10.2 [facility] Comment on above: Performed By: #### 1 [id number], [id number], [id number] #### [facility] (DEFAULT) [address] [place] [address] 50927 RBC 4.18 x10 Normal 3.70-5.30 [facility] Comment on above: Performed By: #### 1 [id number], [id number], 4578762 #### [facility] (DEFAULT) [address] [place] [address] 96427 WBC 8.7 x10 Normal 3.5-10.5 [facility] Comment on above: Performed By: #### 1 [id number], [id number], [id number] #### [facility] (DEFAULT) [address] [place] [address] 28966 Progress Note - Nurseon Progress Note - Nurse Call made to [facility], spoke with Estelita ([phone]) requested last office notes and any testing results done from last office visit with Dr. Mendoza. States will fax over. [Electronically Signed on: 10/06/2023 13:44 EDT] Amber Villeda RN [Verified on: 10/06/2023 13:44 EDT] Amber Villeda RN [facility] Progress Note - Nurse [facility] called, spoke with Sherice. Requested the last office visit and pacemaker interrogation information be faxed to us. States she will fax it over. [Electronically Signed on: 10/06/2023 13:10 EDT] Amber Villeda RN [Verified on: 10/06/2023 13:10 EDT] Amber Villeda RN [facility] Lipid 1996 panelon 4 Cholesterol [Mass/Vol] 163 mg/dL Normal 150-200 [facility] Comment on above: Performed By: #### T MIKE, 86412-4 #### [facility] ([id number]) [address] [place] [address], [address] [place] [address] Cholesterol in HDL [Mass/Vol] 47 mg/dL Normal >39 [facility] Comment on above: Result Comment: HDL <40 mg/dL - High Risk HDL > or = 40mg/dL- Desirable HDL >60 mg/dL - Negative Risk Performed By: #### T MIKE, 99578-8 #### [facility] ([id number]) [address], [address] [place] [address] Cholesterol in LDL [Mass/Vol] 80 mg/dL Normal <130 [facility] Comment on above: Result Comment: LDL <100 mg/dL - Desirable LDL >160 mg/dL - High Risk Performed By: #### T MIKE, 36298-7 #### [facility] ([id number]) [address] [place] [address] Cholesterol in VLDL [Mass/Vol] 36 mg/dL High 0-30 [facility] Comment on above: Performed By: #### T MIKE, 05695-6 #### [facility] ([id number]) [address], [address] [place] [address] CHOLESTEROL:HDL 3.5 Normal 1.0-5.0 [facility] Comment on above: Performed By: #### T MIKE, 95005-2 #### [facility] ([id number]) [address], [address] [place] [address] Triglyceride [Mass/Vol] 181 mg/dL High 27-150 [facility] Comment on above: Performed By: #### T MIKE, 82273-1 #### [facility] ([id number]) [address] [place] [address] TSH WITH REFLEXon 09-26-2023 TSH 1.44 uIU/mL Normal 0.49-4.67 [facility] Comment on above: Performed By: #### T MIKE, 79059-9 #### [facility] ([id number]) [address] [place] [address] RESPIRATORY PANEL PLUSon Adenovirus Not detected Normal NOT DETECTED [facility] Comment on above: Performed By: #### R SPLUS #### [facility] [address] [place] [address] Dr. Bozena Aguirre. Parapertusis Not detected Normal NOT DETECTED [facility] Comment on above: Performed By: #### R SPLUS #### [facility] [address] [place] [address] Dr. Bozena Aguirre. Pertussis Not detected Normal NOT DETECTED [facility] Comment on above: Performed By: #### R SPLUS #### [facility] [address] [place] [address] Dr. Bozena Snow Chlamydia Pneumoniae Not detected Normal NOT DETECTED [facility] Comment on above: Performed By: #### R SPLUS #### [facility] [address] [place] [address] Dr. Bozena Snow Coronavirus 229E Not detected Normal NOT DETECTED [facility] Comment on above: Performed By: #### R SPLUS #### [facility] [address] [place] [address] Dr. Bozena Snow Coronavirus HKU1 Not detected Normal NOT DETECTED [facility] Comment on above: Performed By: #### R SPLUS #### [facility] [address] [place] [address] Dr. Bozena Snow Coronavirus NL63 Not detected Normal NOT DETECTED [facility] Comment on above: Performed By: #### R SPLUS #### [facility] [address] [place] [address] Dr. Bozena Snow Coronavirus OC43 Not detected Normal NOT DETECTED [facility] Comment on above: Performed By: #### R SPLUS #### [facility] [address] [place] [address] Dr. Bozena Snow Influenza A H1 2009 Not detected Normal NOT DETECTED [facility] Comment on above: Performed By: #### R SPLUS #### [facility] [address] [place] [address] Dr. Bozena Snow Influenza A H3 Not detected Normal NOT DETECTED [facility] Comment on above: Performed By: #### R SPLUS #### [facility] [address] [place] [address] Dr. Bozena Snow Influenza B Not detected Normal NOT DETECTED [facility] Comment on above: Performed By: #### R SPLUS #### [facility] [address] [place] [address] Dr. Bozena Snow Metapneumovirus Not detected Normal NOT DETECTED [facility] Comment on above: Performed By: #### R SPLUS #### [facility] [address] [place] [address] Dr. Bozena Snow Mycoplas. Pneumoniae Not detected Normal NOT DETECTED [facility] Comment on above: Performed By: #### R SPLUS #### [facility] [address] [place] [address] Dr. Bozena Snow Parainfluenza 1 Not detected Normal NOT DETECTED [facility] Comment on above: Performed By: #### R SPLUS #### [facility] [address] [place] [address] Dr. Bozena Snow Parainfluenza 2 Not detected Normal NOT DETECTED [facility] Comment on above: Performed By: #### R SPLUS #### [facility] [address] [place] [address] Dr. Bozena Snow Parainfluenza 3 Not detected Normal NOT DETECTED [facility] Comment on above: Performed By: #### R SPLUS #### [facility] [address] [place] [address] Dr. Bozena Snow Parainfluenza 4 Not detected Normal NOT DETECTED [facility] Comment on above: Performed By: #### R SPLUS #### [facility] [address] [place] [address] Dr. Bozena Snow Rhino/Enterovirus Not detected Normal NOT DETECTED [facility] Comment on above: Performed By: #### R SPLUS #### [facility] [address] [place] [address] Dr. Bozena Snow RP2 Header 1 RESPIRATORY PANEL: VIRUSES Normal [facility] Comment on above: Performed By: #### R SPLUS #### [facility] [address] [place] [address] Dr. Bozena Snow RP2 Header 2 RESPIRATORY PANEL: BACTERIA Normal [facility] Comment on above: Performed By: #### R SPLUS #### [facility] [address] [place] [address] Dr. Bozena Snow RSV Not detected Normal NOT DETECTED [facility] Comment on above: Performed By: #### R SPLUS #### [facility] [address] [place] [address] Dr. Bozena Snow SARS-CoV-2 (COVID-19) RNA LIZ+probe Ql (Unsp spec) Not detected Normal NOT DETECTED [facility] Comment on above: Performed By: #### R SPLUS #### [facility] [address] [place] [address] Dr. Bozena Snow Coding Summary.on 04-23-2018 Coding Summary. CODING DATE: 04/23/2018 FINAL [facility] STATUS: PAYOR: Medicare APC DESCRIPTION 5722 Level 2 Diagnostic Tests and Related Services ADMIT DX: REASON FOR VISIT DX: H90.5 Unspecified sensorineural hearing loss FINAL DX: PRINCIPAL: H90.5 Unspecified sensorineural hearing loss SECONDARY: PYMT PROC APC STAT DESCRIPTION DOCTOR NAME DATE NOTE: The code number assigned matches the documented diagnosis and / or procedure in the patient's chart. However, the narrative phrase printed from the coding software may appear abbreviated, or result in slightly different terminology. Coded By: Kathy Carvalho Date Saved: 04/23/2018 02:14 pm Normal [facility] AUD - Progress Noteson 04-20 Protein mass conc PT. referred for ABR testing for rectrocochlear involvement by Dr. Maddox. Pt. denied ear pain during the test session, had difficulty staying still due to hip/leg pain. Pt. will see Dr. Maddox for interpretation of results and recommendations. See AUD-Assessments for Report/Results. DX CODES: H90.5 unspecified sensorineural hearing loss Normal [facility] Vital Signs Date Time Vital Sign Value Performing Clinician Facility 08-28-2024 09:39-0500 Body height 152.4 cm Joe Roberto MD Work Phone: [employer] 08-28-2024 09:39-0500 Body mass index (BMI) [Ratio] 33.79 kg/m2 Joe Roberto MD Work Phone: [facility] [employer] [facility] 08-28-2024 09:39-0500 Body weight 78.47 kg Joe Roberto MD Work Phone: [facility] [employer] [facility] 08-28-2024 09:39-0500 Diastolic blood pressure 80 mm[Hg] Joe Roberto MD Work Phone: [facility] 08-28-2024 09:39-0500 Heart rate 81 /min Joe Roberto MD Work Phone: [facility] [employer] [facility] 08-28-2024 09:39-0500 SaO2% (BldA) [Mass fraction] 95 % Joe Roberto MD Work Phone: [facility] [employer] [facility] 08-28-2024 09:39-0500 Systolic blood pressure 126 mm[Hg] Joe Roberto MD Work Phone: [facility] 08-16-2024 09:45-0500 Body height 152.4 cm Tanisha MILLIGANM Work Phone: [facility] 08-16-2024 09:45-0500 Body mass index (BMI) [Ratio] 32.61 kg/m2 Tanisha Caleb DPM Work Phone: [facility] 08-16-2024 09:45-0500 Body weight 75.75 kg Tanisha Molina DPM Work Phone: [facility] 07-18-2024 14:20-0500 Diastolic blood pressure 75 mm[Hg] Baudilio Mendoza MD Work Phone: [facility] [employer] [facility] 07-18-2024 14:20-0500 Heart rate 77 /min Baudilio Mendoza MD Work Phone: [facility] [employer] [facility] 07-18-2024 14:20-0500 Systolic blood pressure 139 mm[Hg] Baudilio Mendoza MD Work Phone: [facility] [employer] [facility] 07-18-2024 14:17-0500 Body height 152.4 cm Baudilio Mendoza MD Work Phone: [facility] 07-18-2024 14:17-0500 Body mass index (BMI) [Ratio] 34.12 kg/m2 Baudilio Mendoza MD Work Phone: [facility] 07-18-2024 14:17-0500 Body weight 79.24 kg Baudilio Mendoza MD Work Phone: [facility] 05-02-2024 10:37-0400 Body height 152.4 cm Tanisha Molina DPM Work Phone: [facility] 05-02-2024 10:37-0400 Body mass index (BMI) [Ratio] 33.79 kg/m2 Tanisha Molina DPM Work Phone: [facility] 05-02-2024 10:37-0400 Body weight 78.47 kg Tanisha Molina DPM Work Phone: [facility] 03-11-2024 14:28-0400 Body height 152.4 cm Margie Petznick DO Work Phone: [facility] 03-11-2024 14:28-040 Body mass index (BMI) [Ratio] 33.79 kg/m2 Margie Petznick DO Work Phone: [facility] 03-11-2024 14:28-0400 Body temperature 98.2 [degF] Margie Petznick DO Work Phone: [facility] 03-11-2024 14:28-0400 Body weight 78.47 kg Margie Petznick DO Work Phone: [facility] 03-11-2024 14:28-040 Diastolic blood pressure 60 mm[Hg] Margie Petznick DO Work Phone: [facility] 03-11-2024 14:28-040 Heart rate 66 /min Margie Petznick DO Work Phone: [facility] 03-11-2024 14:28-0400 SaO2% (BldA) [Mass fraction] 97 % Margie Petznick DO Work Phone: [facility] 03-11-2024 14:28-0400 Systolic blood pressure 122 mm[Hg] Margie Saenz DO Work Phone: [facility] Encounters Encounter Date Encounter Type Care Provider Facility Start: 09-09-2024 End: 09-09-2024 Telephone encounter Margie Saenz DO Work Phone: [facility] Start: 08-28-2024 End: 08-28-2024 Office outpatient visit 25 minutes Joe Roberto MD Work Phone: [facility] Comment on above: Persistent atrial fi brillation (CMS-HCC) (Primary Dx); Presence of cardiac pacemaker; Primary hypertension; Chronic heart failure with preserved ejection fraction (CMS-HCC); Preop cardiovascular exam Start: 08-28-2024 End: 08-28-2024 Patient encounter status Joe Roberto MD Work Phone: [facility] Start: 08-28-2024 End: 08-28-2024 Clinical Support [facility] Comment on above: Presence of cardiac pacemaker- [employer] (Primary Dx) Start: 08-27-2024 End: 08-27-2024 Telephone encounter Ashwini Fitzpatrick [facility] Start: 08-16-2024 End: 08-16-2024 Bamboo flowsheet Tanisha Molina DPM Work Phone: [facility] Start: 08-16-2024 End: 08-16-2024 Bamboo flowsheet Tanisha Molina DPM Work Phone: [facility] Start: 08-16-2024 End: 08-16-2024 Patient encounter procedure Tanisha Molina DPM Work Phone: [facility] Comment on above: 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, not stated as uncontrolled(250.60) (CMS/HCC) (Primary Dx); Onychomycosis Start: 08-16-2024 End: 08-16-2024 ambulatory TANISHA MOLINA Not Available Start: 07-24-2024 End: 07-24-2024 Refill Shannan Souza RN [facility] Comment on above: Med Refill Start: 07-18-2024 End: 07-18-2024 Office outpatient visit 25 minutes Baudilio Mendoza MD Work Phone: [facility] Comment on above: Stage 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 margarita disease (CKD) ([facility]) (Primary Dx) Start: 07-16-2024 End: 07-16-2024 ambulatory BAUDILIO MENDOZA [facility] Start: 07-15-2024 End: 07-15-2024 ambulatory BAUDILIO MENDOZA [facility] Start: 07-15-2024 Encounter for other preprocedural examination [facility] Start: 07-11-2024 End: 07-11-2024 Telephone encounter Guera Sanchez 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 Start: 04-09-2024 End: 04-09-2024 ambulatory [facility] Start: 03-21-2024 End: 03-21-2024 ambulatory [facility] Start: 03-11-2024 End: 03-11-2024 Office outpatient visit 25 minutes Margie Saenz DO Work Phone: [facility] Comment on above: Type 2 diabetes westley itus with stage 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ney disease, without long-term current use of insulin (HCC) ([facility]) Start: 03-11-2024 End: 03-11-2024 ambulatory MARGIE Esparza DANY Not Available Start: 03-05-2024 End: 03-05-2024 ambulatory [facility] Start: 02-06-2024 End: 02-06-2024 ambulatory [facility] Start: 01-29-2024 End: 01-29-2024 ambulatory [facility] Start: 01-29-2024 End: 01-29-2024 ambulatory [facility] Start: 01-18-2024 End: 01-18-2024 ambulatory TANISHA MOLINA Not Available Start: 01-16-2024 End: 01-16-2024 ambulatory [facility] Start: 01-03-2024 End: 01-03-2024 ambulatory [facility] Start: 01-02-2024 End: 01-02-2024 ambulatory [facility] Start: 01-02-2024 End: 01-02-2024 ambulatory [facility] Start: 12-12-2023 End: 12-12-2023 ambulatory [facility] Start: 12-12-2023 End: 12-12-2023 ambulatory [facility] Start: 11-20-2023 End: 11-20-2023 ambulatory [facility] Start: 11-20-2023 End: 11-20-2023 ambulatory [facility] Start: 11-16-2023 End: 11-16-2023 ambulatory ALFREDITO MADDOX Not Available Start: 11-15-2023 End: 11-15-2023 ambulatory STAN SCHWAB Not Available Start: 11-07-2023 End: 11-07-2023 ambulatory STAN Yu SCHWAB Not Available Start: 10-30-2023 End: 10-30-2023 ambulatory Paris Gatessandra EstradaChase Facility:[facility] Start: 10-06-2023 End: 10-06-2023 [facility] Start: 10-05-2023 End: 10-05-2023 ambulatory PARIS Thao MELROSE Not Available Start: 10-03-2023 End: 10-03-2023 ambulatory TANISHA MOLINA Not Available Start: 09-26-2023 End: 09-26-2023 ambulatory NAYA Coleman [facility] Start: 09-14-2023 End: 09-14-2023 ambulatory PARIS Thao CHASE Not Available Start: 09-08-2023 End: 09-08-2023 ambulatory MARGIE M DANY Not Available Start: 07-13-2022 Patient encounter status Guera marquez On license of [facility] Work Phone: Start: 07-13-2022 Encounter for preprocedural cardiovascular examination JOE ROBERTO [facility] Start: 07-06-2022 End: 07-06-2022 ambulatory BECKIEEMBER FITZPATRICK Facility: Start: 04-20-2018 End: 07-20-2018 Patient encounter procedure Alfredito Maddox Facility:[facility] Start: 05-04-2017 End: 07-07-2021 Patient encounter status Guera Sanchez [facility] Procedures Date Procedure Procedure Detail Performing Clinician Start: 08-28-2024 DEVICE INTERROGATION Ro musa Roberto MD Work Phone: Start: 08-28-2024 Ecg routine ecg w/le ast 12 lds w/i&r Joe Roberto MD Work Phone: Start: 03-11-2024 Hemoglobin glycosylated a1c Margie Saenz DO Work Phone: Start: 02-06-2024 Follow-up visit Follow-up GRISELDA ANDINO Start: 01-29-2024 Biopsy Biopsy GRISELDA CRAVEN Start: 01-03-2024 Follow-up visit Follow-up ALEJO Carla BAXTER Start: 06-01-2022 Adult depression scr eening assessment Guera Sanchez [employer] Start: 09-03-2018 Colonoscopy Guera Hernandez ch [employer] Plan of Treatment Date Care Activity Detail Author Start: 08-28-2025 Tobacco Screening Tobacco Screening [facility] Start: 07-18-2025 Tobacco Screening Tobacco Screening [facility] Start: 04-11-2025 Tobacco Screening Tobacco Screening [facility] Start: 03-10-2025 End: 03-10-2025 Patient encounter procedure 03/10/2025 1:00 PM EDT Office Visit [facility] [address] [place] [phone] Margie Saenz DO [address] [place] [address] [facility] Start: 02-26-2025 End: 02-26-2025 Clinical Support [facility] Start: 01-15-2025 End: 07-18-2025 Basic metabolic 2000 panel - Serum or Plasma Basic Metabolic Panel Lab Routine Stage 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ney disease (CKD) ([facility]) Expected: 01/15/2025 (Approximate), Expires: 07/18/2025 [facility] Work Phone: Comment on above: Expected: 01/15/2025 (Approximate), Expires: 07/18/2025 Start: 01-15-2025 End: 07-18-2025 CBC panel - Blood by Automated count CBC without diff Lab Routine Stage 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ney disease (CKD) ([facility]) Expected: 01/15/2025 (Approximate), Expires: 07/18/2025 [facility] Comment on above: Expected: 01/15/2025 (Approximate), Expires: 07/18/2025 Start: 01-15-2025 End: 07-18-2025 Magnesium [Mass/volume] in Serum or Plasma Magnesium Lab Routine Stage 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ney disease (CKD) ([facility]) Expected: 01/15/2025 (Approximate), Expires: 07/18/2025 [facility] Comment on above: Expected: 01/15/2025 (Approximate), Expires: 07/18/2025 Start: 01-15-2025 End: 07-18-2025 Parathyroid Hormone, intact Parathyroid Hormone, intact Lab Routine Stage 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ney disease (CKD) ([facility]) Expected: 01/15/2025 (Approximate), Expires: 07/18/2025 [facility] Comment on above: Expected: 01/15/2025 (Approximate), Expires: 07/18/2025 Start: 01-15-2025 End: 07-18-2025 Phosphate [Mass/volume] in Serum or Plasma Phosphorus Lab Routine Stage 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ney disease (CKD) ([facility]) Expected: 01/15/2025 (Approximate), Expires: 07/18/2025 [facility] [employer] Comment on above: Expected: 01/15/2025 (Approximate), Expires: 07/18/2025 Start: 01-15-2025 End: 07-18-2025 Protein creat ratio Protein creat ratio Lab Routine Stage 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ney disease (CKD) ([facility]) Expected: 01/15/2025 (Approximate), Expires: 07/18/2025 [facility] Comment on above: Expected: 01/15/2025 (Approximate), Expires: 07/18/2025 Start: 12-10-2024 Hemoglobin A1c measurement Diabetes: Hemoglobin A1C [facility] Start: 11-26-2024 End: 11-26-2024 Patient encounter procedure 11/26/2024 1:45 PM EDT Procedure Visit [facility] [address] [place] [phone] Tanisha Molina, DPM [address] [place], [place] [phone] [facility] Start: 09-09-2024 End: 09-09-2024 Patient encounter procedure 09/09/2024 11:15 AM EDT Office Visit [facility] [address] [place] [phone] Margie Saenz DO [address] [place] [address] [facility] Start: 08-28-2024 End: 08-28-2024 Clinical Support [facility] Start: 08-16-2024 End: 08-16-2024 Patient encounter procedure 08/16/2024 9:45 AM EST Procedure Visit [facility] [address] [place] [phone] Tanisha Molina, DPM [address] [place] [address] Arrived [facility] Comment on above: Arrived Start: 08-15-2024 End: 08-15-2024 Patient encounter procedure 08/15/2024 1:45 PM EST Procedure Visit [facility] [address] [place] [phone] Tanisha Molina, DPM [address] [place] [address] [facility] Start: 07-18-2024 End: 07-18-2024 Patient encounter procedure 07/18/2024 2:30 PM EST Office Visit [facility] [address] [place] [phone] Baudilio Mendoza MD [address] [place] [address] [facility] Start: 06-10-2024 Hemoglobin A1c measurement Diabetes: Hemoglobin A1C [facility] Start: 05-02-2024 End: 05-02-2024 Patient encounter procedure [facility] Comment on above: Arrived Start: 06-01-2023 Depression Screening Depression Scre ening [facility] Start: 03-18-2023 DTaP,Tdap and Td Vaccines (2 - Td or Tdap) DTaP,Tdap and Td Vaccines (2 - Td or Tdap) [facility] Start: 09-03-2021 Screening for malign ant neoplasm of colon Colonoscopy [facility] Start: 2013 Fall Risk Screening Fall Risk Screen ing [facility] Start: 1998 Administration of varicella zoster vaccine Zoster (Shingles) Vaccine (1 of 2) [facility] Start: 12-01-1967 Urine screening for protein Diabetes: Urine Protein Screening [facility] Start: 1958 Glaucoma screening Diabetes: R etinopathy Screening [facility] Start: 1948 Glaucoma screening Diabetic Op hthalmology Exam [facility] Start: 1948 Screening for malign ant neoplasm of colon [facility] End: 07-18-2025 Urinalysis Urinalysis Lab Routine Stage 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ney disease (CKD) ([facility]) 1 Occurrences starting 07/18/2024 until 07/18/2025 [facility] Comment on above: 1 Occurrences starti ng 07/18/2024 until 07/18/2025 Immunizations Immunization Date Immunization Notes Care Provider Sekou tong 04-10-2024 influenza, high dose seasonal, preservative-free Tanisha Molina DPM Work Phone: [facility] 06-02-2023 Pneumococcal Conjuga te PCV 20 Margie Petznick DO Work Phone: [facility] 05-11-2023 Influenza, injectabl e, Madin Constance Canine Kidney, preservative free, quadrivalent Margie Petznick DO Work Phone: [facility] 04-13-2022 Influenza, injectabl e, Madin Constance Canine Kidney, preservative free, quadrivalent Margie Petznick DO Work Phone: [facility] 04-20-2021 influenza, injectabl e, quadrivalent, preservative free Margie Petznick DO Work Phone: [facility] 05-08-2020 Influenza, injectabl e, Madin [place] Canine Kidney, preservative free, quadrivalent Margie Petznick DO Work Phone: [facility] 05-08-2020 pneumococcal polysaccharide vaccine, 23 valent Margie Petznick DO Work Phone: [facility] 01-02-2017 pneumococcal polysaccharide vaccine, 23 valent Margie Petznick DO Work Phone: [facility] 07-04-2016 pneumococcal polysaccharide vaccine, 23 valent Margie Petznick DO Work Phone: [facility] 03-18-2013 tetanus toxoid, redu paola diphtheria toxoid, and acellular pertussis vaccine, adsorbed Margie Petznick DO Work Phone: [facility] Payers Date Payer Category Payer Medicaid [id number] 2022 Medicare ANTHEM MEDICARE ADVANTAGE ANTHEM MEDICARE ADVANTAGE [id number] 2022-Present [address] [place] [address] [id number] 2022 Medicare (Managed Care) [facility] [id number] 2022 Medicare HMO [employer]M MEDICARE [id number] 2018 Medicare [id number] 1961 Medicaid [id number] 1959 Unknown [id number] 1948 Unknown [id number] 2.16840.1.919948.3.579.2. 727 1948 Unknown [id number] 2.840.1.146042.3.579.2. 593 1948 Unknown [id number] 2.840.1.657781.3.579.2. 718 1948 Unknown [id number] 2.840.1.558631.3.579.2. 718 1948 Unknown [id number] 2.16840.1.187300.3.579.2. 128 1948 Unknown [id number] 2.16840.1.963383.3.579.2. 128 1948 Unknown [id number] 2.16840.1.361812.3.579.2. 1285 1948 Unknown [id number] 2.16840.1.870194.3.579.2. 1285 1948 Unknown [id number] 2.16840.1.954651.3.579.2. 1285 1948 Unknown [id number] 2.16840.1.883148.3.579.2. 1285 1948 Unknown [id number] 2.16.840.1.214199.3.579.2. 1285 1948 Unknown [id number] 2.16.840.1.383640.3.579.2. 1285 1948 Unknown [id number] 2.16.840.1.004947.3.579.2. 1285 1948 Unknown [id number] 2.16.840.1.752577.3.579.2. 1258 1948 Unknown [id number] 2.16.840.1.860039.3.579.2. 1258 1948 Unknown [id number] 2.16.840.1.232386.3.579.2. 1258 1948 Unknown [id number] 2.16.840.1.181450.3.579.2. 1258 1948 Unknown [id number] 2.16.840.1.361337.3.579.2. 1258 1948 Unknown [id number] 2.16.840.1.143278.3.579.2. 1258 1948 Unknown [id number] 2.16.840.1.074822.3.579.2. 1258 1948 Unknown [id number] 2.16.840.1.407009.3.579.2. 1258 1948 Unknown [id number] 2.16.840.1.900789.3.579.2. 1258 1948 Unknown [id number] 2.16.840.1.676716.3.579.2. 1258 1948 Unknown [id number] 2.16.840.1.679589.3.579.2. 1258 1948 Unknown [id number] 2.16.840.1.441857.3.579.2. 1258 1948 Unknown [id number] 2.16.840.1.510740.3.579.2. 1259 1948 Unknown [id number] 2.840.1.562744.3.579.2. 1285 1948 Unknown [id number] 2.16.840.1.514329.3.579.2. 1285 1948 Unknown [id number] 2.840.1.004370.3.579.2. 1285 1948 Unknown [id number] 2.840.1.045920.3.579.2. 1285 1948 Unknown [id number] 2.840.1.924862.3.579.2. 1285 1948 Unknown [id number] 2.840.1.275407.3.579.2. 1285 1948 Unknown [id number] 2.0.1.801581.3.579.2. 1285 1948 Unknown [id number] 2.0.1.951874.3.579.2. 1285 1948 Unknown [id number] 2.0.1.861072.3.579.2. 1285 1948 Unknown [id number] 2.840.1.091534.3.579.2. 1285 1948 Unknown [id number] 2.840.1.132108.3.579.2. 1285 1948 Unknown [id number] 2.840.1.558994.3.579.2. 1285 1948 Unknown [id number] 2.840.1.674472.3.579.2. 1285 1948 Unknown [id number] 2.840.1.551096.3.579.2. 1286 Social History Date Type Detail Facility Start: 06-01-2022 End: 12-21-2022 Tobacco smoking status NHIS Never smoked tobacco [facility] Start: 06-01-2022 End: 12-21-2022 Tobacco use and exposure Smokeless tobacco non-user [facility] Start: 03-11-2024 End: 09-09-2024 Alcoholic beverage intake Ex-drinker (finding) [facility] Start: 03-11-2024 End: 09-09-2024 History of Social function [facility] Start: 03-11-2024 End: 09-09-2024 Tobacco use panel [facility] Start: 1948 Sex assigned at Not on file N [facility] Start: 04-11-2024 End: 08-28-2024 Alcoholic beverage intake Lifetime non-drinker (finding) [facility] Do you belong to any clubs or organizations such as jewish groups, unions, fraternal or athletic groups, or school groups? No [facility] Are you now , , , , never or living with a partner? [facility] How often to you hav e a drink containing alcohol? Never [facility] How many standard dr inks containing alcohol do you have on a typical day? Patient does not drink [facility] How hard is it for y ou to pay for the very basics like food, housing, medical care, and heating Somewhat hard [facility] Do you feel stress - tense, restless, nervous, or anxious, or unable to sleep at night because your mind is troubled all the time - these days [OSQ] Rather much [facility] Start: 02-05-2015 Sex Female (finding) [facility] Medical Equipment Procedure Code Equipment Code Equipment Original Text Equipment Identifier Dates [id number] Start: 12-08-2019 Brng Hum 36-44mm Std Shldr - [id number] - [id number] Start: 05-17-2017 Comment on above: Description: use wit h 36 mm glenosphere humeral bearing, 44 mm ArComXL Cmnt Bn Bio 40gm Rpl [id number] - [id number] Start: 05-21-2020 Bsplt Parker Cmprh 25mm Mn Tpr - [id number] - [id number] Start: 05-17-2017 Comment on above: Description: 25 mm g lenosphere mini baseplate with taper adapter Bsplt Parker 36mm Cmprh - [id number] - [id number] Start: 05-17-2017 Stm Hum 83mm 9mm Cmprh Por Mn - [id number] - [id number] Start: 05-17-2017 Ty Hum Cmprh 44m m Cocr Std - [id number] - [id number] Start: 05-17-2017 Shldr Zb Rvrs Comp Gln Frac St - [id number] Start: 05-17-2017 Hd Fem 36mm -3.5mm 06/15 Vrsy Rpl [id number] - Sna - [id number] Start: 10-18-2017 Shl Actb 50mm Hi p Prm Mdlr Ch Rpl [id number] - Sna - [id number] Start: 10-18-2017 Linr Actb 50/52/54mm 36mm Std Rpl [id number] - Sna - [id number] Start: 10-18-2017 Stm Fem 129d 1 44mm 06/15 B - Sna - [id number] Start: 10-18-2017 Stm Fem 4 Gnss I i Npor Lt Kn - [id number] Start: 05-21-2020 Ins Tib 3-4 15mm Kn Xlpe Dsh - [id number] Start: 05-21-2020 Kn Sn Std Ps Cr Inc Mtn Construct - [id number] Start: 05-21-2020 Cardiac pacemaker, device (physical object) ([id number]) Pacemaker-05/06/20 11 [id number] Start: 05-06-2011 Comment on above: Description: Pacemak er only. With magnet use for surgery it will pace asynchronously at 100 beats/min and then resume settings when magnet removed. Bsplt Tib 3 Lt K n Gns2 Ti Npor - [id number] Start: 05-21-2020 Scr Bn 25mm 6.5m m Cntr Hex - Sn/A - [id number] Start: 05-17-2017 Adriel Screw 4. 5 X 35 Mm - [id number] - [id number] Start: 05-17-2017 Comment on above: Description: 4.75 mm 35 mm lemgth, 3.5 mm hex fixed locking screw Fixed Locking Screw ()[id number], [id number] FDA Start: 05-17-2017 Comment on above: Description: 4.75 mm 25 mm lemgth, 3.5 mm hex fixed locking screw Scr Hip Prince St Tiv 25mm 6.5mm Rpl [id number] + [id number] - Sna - [id number] Start: 10-18-[address] Tiv 25mm 6.5mm Rpl [id number] + [id number] - Sna - [id number] Start: 10-18-2017 Scr Bn Prince 30mm 6.5mm Hip St Rpl [id number] + [id number] + [id number] - Sna - [id number] Start: 10-18-2017 Locking Screw ()[id number], [id number] [facility] Start: 05-17-2017 Comment on above: Description: 4.75 mm 35 mm lemgth, 3.5 mm hex fixed locking screw Goals Date Patient Goal Desired Activity /State Personal health goal Comment on above: Formatting of this n ote might be different from the original. Evaluation of progress towards goal: Safe dc transition home with spouse to son's home. Clinical Notes 10-30-2023 to 09-09-2024 Telephone Encounter - Allegra Donis - 09/09/2024 1:58 PM EDTTelephone Encounter - Allegra Donis - 09/09/2024 1:58 PM Kia Roberto MD - 08/28/2024 10:45 AM EST Note Date & Type Note Facility 09-09-2024 Telephone encounter Note Pt called to inquire if anyone found a ring with a purple setting. Checked the exam room, checkout area, and checked with front office agent. Informed pt that we didn't find it but would call back if it turned up. [facility] 09-09-2024 Miscellaneous Notes Pt called to inquire if anyone found a ring with a purple setting. Checked the exam room, checkout area, and checked with front office agent. Informed pt that we didn't find it but would call back if it turned up. documented in this encounter [facility] 08-28-2024 History of Present illness Narrative Dayanna Grimm Date of visit: 08/28/2024 Date of : 1950 Age: 73 y.o. Patient Active Problem List Diagnosis Nocturnal hypoxia ANA (obstructive sleep apnea) Hypothyroid Localized osteoarthritis of knees, bilateral Osteoarthritis of right hip Acute idiopathic pericarditis HTN (hypertension) Presence of cardiac pacemaker- [employer] DM type 2 (diabetes mellitus, type 2) ([facility]) Secondary pulmonary hypertension Rotator cuff tear arthropathy, left Primary osteoarthritis of right hip Severe obesity (BMI 35.0-39.9) with comorbidity ([facility]) Disc displacement, lumbar VPB (ventricular premature beat) Rectal bleeding Change in bowel habits History of adenomatous polyp of colon Adenomatous polyp of descending colon Adenomatous polyp of rectum Vertigo Lumbar spondylosis Disorder of sacrum Lumbosacral spondylosis without myelopathy Arthritis of left knee Tricuspid valve insufficiency Mitral valve insufficiency Trochanteric bursitis of both hips Acute left-sided thoracic back pain Anxiety Carpal tunnel syndrome Degenerative arthritis Depression Fractures GERD (gastroesophageal reflux disease) HLD (hyperlipidemia) Migraine RLS (restless legs syndrome) Seasonal allergies Sinus infection Varicose veins of lower extremity Visual impairment Preop cardiovascular exam Chronic heart failure with preserved ejection fraction ([facility]) Allergies Allergen Reactions Atorvastatin Other (See Comments) Other reaction(s): Intolerance-unknown Myalgia Cortisone Tachycardia Other reaction(s): Intolerance-unknown Ok for pain procedures Hydrocortisone Other reaction(s): Intolerance-unknown Other reaction(s): Intolerance-unknown Azithromycin Vomiting Other reaction(s): Intolerance-unknown Crestor [Rosuvastatin] Itching and Rash Dabigatran Etexilate Nausea (Pradaxa) Erythromycin Base Vomiting Other reaction(s): Intolerance-unknown Levofloxacin Dizziness Sulfamethoxazole-Trimethoprim Vomiting Other reaction(s): Intolerance-unknown Other reaction(s): Intolerance-unknown Current Outpatient Medications Medication Sig Dispense Refill esomeprazole (NexIUM) 40 mg capsule Take 1 capsule (40 mg total) by mouth in the morning. estradioL (ESTRACE) 0.01 % (0.1 mg/gram) vaginal cream Insert 1 g into the vagina in the morning. 42.5 g 3 furosemide (LASIX) 40 mg tablet Take 1 tablet (40 mg total) by mouth as needed (edema). 90 tablet 1 insulin lispro (HumaLOG) 100 unit/mL injection Inject under the skin. Sliding scale levothyroxine (SYNTHROID, LEVOTHROID) 25 MCG tablet Take 1 tablet (25 mcg total) by mouth in the evening. lovastatin (MEVACOR) 40 mg tablet Take 2 tablets (80 mg total) by mouth nightly. 180 tablet 1 meclizine (ANTIVERT) 25 mg tablet Take 1 tablet (25 mg total) by mouth 3 (three) times a day as needed for dizziness. metoprolol tartrate (LOPRESSOR) 25 mg tablet Take 1 tablet (25 mg total) by mouth in the morning and 1 tablet (25 mg total) before bedtime. 180 tablet 2 nystatin (MYCOSTATIN) powder Apply 1 Application topically in the morning and 1 Application at noon and 1 Application in the evening and 1 Application before bedtime. 15 g 0 ondansetron ODT (ZOFRAN ODT) 8 mg disintegrating tablet DISSOLVE 1 TABLET IN MOUTH TWICE DAILY NEEDED ONETOUCH DELICA PLUS LANCET 33 gauge [facility] ONETOUCH VERIO TEST STRIPS strip USE 1 STRIP TO CHECK GLUCOSE TWICE DAILY rivaroxaban (XARELTO) 15 mg tablet Take 1 tablet (15 mg total) by mouth in the morning. 90 tablet 1 semaglutide (OZEMPIC) 0.25 mg or 0.5 mg(2 mg/1.5 mL) pen injector Inject 2 mg under the skin once a week. sertraline (ZOLOFT) 25 mg tablet Take 4 tablets (100 mg total) by mouth in the morning. No current facility-administered medications for this visit. Chief Complaint Patient presents with Pre-op Exam EST PT F/U 6 MS PPM CK ALSO L/S RBP, PREOP [facility] L4-S1 DECOMPRESSION AND FUSION, FORMS SCANNED TO MEDIA, MARLON W/PT History of Present Illness Was here for follow-up. She was doing okay from a cardiac standpoint but has a lot of back pain. She wants to go through a back surgery. Her breathing has been stable. No issues from that standpoint. No orthopnea. No PND. No lower extremity edema. She does take Lasix regularly. No chest pain or pressure. No palpitations. Her pacemaker is interrogated and functioning appropriately with over 60% RV pacing. No other significant new findings. Past Medical History: Diagnosis Date Anxiety Asthma Atrial fibrillation ([facility]) Bradycardia Cardiac pacemaker Carpal tunnel syndrome Degenerative arthritis Depression 06/2018 started oral antidep. DM type 2 (diabetes mellitus, type 2) ([facility]) Fractures x4 vertebrea GERD (gastroesophageal reflux disease) HLD (hyperlipidemia) HTN (hypertension) Hypothyroid Migraine ANA (obstructive sleep apnea) oxygen at 3 liters at night RLS (restless legs syndrome) Seasonal allergies Sinus infection Varicose veins of lower extremity Vertigo Vertigo Visual impairment glasses No data recorded No data recorded No data recorded Past Surgical History: Procedure Laterality Date APPENDECTOMY CARDIAC PACEMAKER PLACEMENT CARPAL TUNNEL RELEASE Left CHOLECYSTECTOMY COLONOSCOPY N/A 09/03/2018 Performed by Roberto Carlos Watts MD at [facility] FRACTURE SURGERY Right ankle HERNIA REPAIR HYSTERECTOMY INJECTION ANESTHETIC AGENT LUMBAR / THORACIC also to hips and knees INJECTION BLOCK NERVE MEDIAL BRANCH BILAT L 4/,5/ Bilateral 10/09/2020 Performed by Jonathan Baugh MD at [facility] IN[facility] CAUDAL EPIDURAL WITH CATHETER, STEROID N/A 10/29/2018 Performed by Jonathan Baugh MD at [facility] INJECTION LARGE JOINT BURSA HIP Right 02/17/2017 Performed by Jonathan Baugh MD at [facility] INJECTION MEDIAL BRANCH NERVE BLOCK Bilateral L 4/5, 5/1 Bilateral 05/03/2019 Performed by Jonathan Baugh MD at [facility] OOPHORECTOMY ORIF ANKLE FRACTURE Right ORTHOPEDIC SURGERY Left 06/2018 left leg brace RELEASE TRIGGER FINGER Left 10/12/2022 Performed by Paris Stone DO at [facility] RELEASE TRIGGER FINGER Right 09/22/2022 Performed by Paris Stone DO at [facility] RELEASE TRIGGER FINGER Left 12/19/2018 Performed by Paris Stone DO at [facility] RELEASE TRIGGER FINGER Right 02/14/2018 Performed by Paris Stone DO at [facility] REPLACEMENT TOTAL JOINT HIP Right 10/18/2017 Performed by Paris Stone DO at [facility] REPLACEMENT TOTAL JOINT KNEE Left 05/21/2020 Performed by Guillermo Brown MD at [facility] REVERSE ARTHROPLASTY TOTAL SHOULDER Left 05/17/2017 Performed by Paris Stone DO at [facility] SHOULDER SURGERY Left x2 Family History Problem Relation Age of Onset Cancer Mother Heart disease Mother Bone cancer Mother Cancer Father Heart disease Sister ALS Sister Colon cancer Daughter Heart attack Son Anesthesia problems Neg Hx Bleeding Disorder Neg Hx Breast cancer Neg Hx Social History Socioeconomic History Marital status: Spouse name: Not on file Number of children: Not on file Years of education: Not on file Highest education level: Not on file Occupational History Not on file Tobacco Use Smoking status: Never Smokeless tobacco: Never Vaping Use Vaping status: Never Used Substance and Sexual Activity Alcohol use: Never Drug use: No Sexual activity: Defer Partners: Male Other Topics Concern Caffeine Use Yes Social History Narrative Not on file Social Drivers of Health Financial Resource Strain: Medium Risk (06/01/2022) Overall Financial Resource Strain (CARDIA) Difficulty of Paying Living Expenses: Somewhat hard Food Insecurity: No Food Insecurity (08/28/2024) Hunger Screening Food Insecurity - Worry: Never True Food Insecurity - Inability: Never True Transportation Needs: No Transportation Needs (06/01/2022) PRAPARE - Transportation Lack of Transportation (Medical): No Lack of Transportation (Non-Medical): No Physical Activity: Inactive (06/01/2022) Exercise Vital Sign Days of Exercise per Week: 0 days Minutes of Exercise per Session: 0 min Stress: Stress Concern Present (06/01/2022) [employer] [place] [employer] - Occupational Stress Questionnaire Feeling of Stress : Rather much Social Connections: Moderately Isolated (06/01/2022) Social Connection and Isolation Panel [NHANES] Frequency of Communication with Friends and Family: Three times a week Frequency of Social Gatherings with Friends and Family: Three times a week Attends Denominational Services: Never Active Member of Clubs or Organizations: No Attends Club or Organization Meetings: Never Marital Status: Interpersonal Safety: Not At Risk (06/01/2022) Humiliation, Afraid, Rape, and Kick questionnaire Fear of Current or Ex-Partner: No Emotionally Abused: No Physically Abused: No Sexually Abused: No Housing Instability: Not on file Review of Systems Review of Systems Constitutional: Positive for malaise/fatigue. HENT: Positive for hoarse voice. Eyes: Negative. Cardiovascular: Negative. Respiratory: Negative. Endocrine: Negative. Hematologic/Lymphatic: Bruises/bleeds easily. Skin: Negative. Musculoskeletal: Positive for back pain, joint swelling and muscle weakness. Gastrointestinal: Positive for change in bowel habit. Negative for constipation. Genitourinary: Negative. Neurological: Positive for loss of balance and numbness. Psychiatric/Behavioral: Positive for depression. The patient is nervous/anxious. Allergic/Immunologic: Negative. Vascular: Negative. CARDIOVASCULAR: Please review HPI. Physical Examination General appearance: Alert, oriented and cooperative. In no acute distress. Skin: Warm and dry to touch. Head: Normocephalic, without obvious abnormality, atraumatic. Ears, Nose, Mouth, Throat: Throat clear without erythema or exudate. Dentition intact. Eyes: Conjunctivae unremarkable, EOM intact. Neck: No JVD, No carotid bruit. Neck supple, trachea midline. Respiratory: Clear to auscultation bilaterally, no use of accessory muscles. Cardiovascular: RRR with normal S1 and S2 with no murmurs. Gastrointestinal: Soft, non-tender. Bowel sounds normal. Musculoskeletal: No peripheral edema. Neurologic: Oriented to time, person and place, affect appropriate. No focal/major motor defects noted. Psychiatric: Appropriate mood, memory and judgement. VITAL SIGNS: BP 126/80 Pulse 81 Ht 152.4 cm (5') Wt 78.5 kg (173 lb) LMP (LMP Unknown) SpO2 95% BMI 33.79 kg/m No orders of the defined types were placed in this encounter. Medications Discontinued During This Encounter Medication Reason gabapentin (NEURONTIN) 300 mg capsule clobetasoL (TEMOVATE) 0.05 % cream cholecalciferol (VITAMIN D3) 50,000 units capsule IMPRESSIONS/PLAN 1. Presence of cardiac pacemaker - Device Interrogation; Future - Device Interrogation; Future - Device Interrogation 2. Persistent atrial fibrillation ([facility]) - POCT EKG 3. Primary hypertension 4. Chronic heart failure with preserved ejection fraction ([facility]) 5. Preop cardiovascular exam Longstanding persistent AFib Obesity with recent weight loss on Ozempic Sick sinus syndrome s/p PPM, 61% RV pacing on interrogation Chronic HFpEF CKD Preop back surgery EKG today reveals AF with RV pacing Overall, pacer is functioning appropriately. She was modest right ventricular pacing but her LV function is normal. In theory, we could stop her metoprolol at some point likely. Why she looks euvolemic from a cardiac standpoint. She was on chronic diuretics and likely has some component of chronic heart failure with preserved LV function. This may be significantly improved after recent weight loss with Ozempic. From a cardiac standpoint, low to intermediate risk for back surgery. She had an EKG today. I do not think she needs any additional testing. She can hold her Xarelto 3 days prior and resume it afterwards when felt safe from a standpoint of her surgical intervention. If there was a consideration of holding it slightly longer, would not have an objection to this given she does have underlying chronic kidney disease in his on renally dosed Xarelto. She was should eventually get back on long-term anticoagulation, however. Routine follow-up. TODAYS ORDERS Orders Placed This Encounter Procedures Device Interrogation Device Interrogation POCT EKG FOLLOW UP Return in about 6 months (around 02/25/2025). PCP: ANAHI REYES MD Referring Physician: Naya Travis MD [address] [place] [address] documented in this encounter [facility] 08-28-2024 History of Present illness Narrative I agree with the findings in the scanned document. documented in this encounter [facility] 08-27-2024 Miscellaneous Notes Called patient to remind them to bring their most current copy of their medication list with them to their appt. Patient verbalizes understanding. documented in this encounter [facility] 08-27-2024 Telephone encounter Note Called patient to remind them to bring their most current copy of their medication list with them to their appt. Patient verbalizes understanding. [facility] 08-16-2024 History of Present illness Narrative Images from the original note were not included. Subjective Patient ID: Dayanna Grimm is a 73 y.o. female who presents for DM Foot Care (Pt is here today for diabetic foot care, she states sometimes her nails bother her. /BS: 91 A1C: 6.1/LV Dr. Saenz 03-11-2024/SS: 8.5W). HPI Patient presents with her requesting nail debridement. She states multiple nails are thick, raised, incurvated, painful for her. She states she is also having debilitating back pain. She has surgery planned for August. She is looking forward to this as she has pain daily Review of Systems Medications Current Outpatient Medications: ALPRAZolam (Xanax) 0.25 MG tablet, every 12 (twelve) hours., Disp: , Rfl: BD Pen Needle Wendi 2nd Gen 32G X 4 MM [facility], USE 1 PEN NEEDLE SUBCUTANEOUSLY ONCE DAILY, Disp: , Rfl: cholecalciferol (Vitamin D-3) 1.25 MG (56339 UT) capsule, Take 1 capsule by mouth 1 (one) time per week., Disp: , Rfl: clotrimazole (Lotrimin) 1 % cream, Apply 1 application topically in the morning and 1 application before bedtime., Disp: , Rfl: esomeprazole (NexIUM) [address] capsule, Take 20 mg by mouth Daily, Disp: , Rfl: glucose blood (OneTouch Verio) test strip, Check bg levels 3 times a day, Disp: 300 each, Rfl: 3 insulin lispro (HumaLOG KWIKPEN) 100 UNIT/ML injection, INJECT SUBCUTANEOUSLY PER SLIDING SCALE DIRECTED 1:30 > 150 MG/DL ( max 30 units a day) for 30 days, Disp: 15 mL, Rfl: 3 Lancets (OneTouch Delica Plus [id number]) [facility], USE 1 TO CHECK GLUCOSE THREE TIMES DAILY, Disp: , Rfl: Lasix 40 MG tablet, 1 (one) time each day at the same time., Disp: , Rfl: levothyroxine (Synthroid, Levoxyl) 25 MCG tablet, 1 (one) time each day at the same time., Disp: , Rfl: losartan (Cozaar) 25 MG tablet, Take 25 mg by mouth Daily, Disp: , Rfl: lovastatin (Mevacor) 40 MG tablet, Take 80 mg by mouth at bedtime, Disp: , Rfl: meclizine (Antivert) 25 MG tablet, 1 tablet as needed Orally 3 xs daily as needed for 90 days, Disp: , Rfl: metoprolol tartrate (Lopressor) 25 MG tablet, every 12 (twelve) hours., Disp: , Rfl: ondansetron ODT (Zofran-ODT) 8 MG disintegrating tablet, 1 tablet on the tongue and allow to dissolve as needed Orally twice daily for 90 days, Disp: , Rfl: rivaroxaban (Xarelto) 15 MG tablet, Take 15 mg by mouth in the morning., Disp: , Rfl: Semaglutide, 2 MG/DOSE, (Ozempic, 2 MG/DOSE,) 8 MG/3ML solution pen-injector, Inject 1 mg under the skin every 7 (seven) days, Disp: 9 mL, Rfl: 3 sertraline (Zoloft) 100 MG tablet, 1 (one) time each day at the same time, Disp: , Rfl: simethicone (Mylicon,Gas-X) 125 MG capsule, 1 tablet as needed Orally at bedtime, Disp: , Rfl: Allergies Atorvastatin, Azithromycin, Cortisone, Acetaminophen, Amoxicillin-pot clavulanate, Cefdinir, Doxycycline, Duloxetine hcl, Erythromycin, Hydrochlorothiazide, Hydrocodone, Lisinopril, Metronidazole, Moxifloxacin, Nitrofurantoin, Simvastatin, Venlafaxine, Dabigatran, Dulaglutide, Erythromycin base, Levofloxacin, Rosuvastatin, and Sulfamethoxazole-trimethoprim Past Surgical History Past Surgical History: Procedure Laterality Date APPENDECTOMY CHOLECYSTECTOMY COLONOSCOPY DENTAL SURGERY Tooth extracted HERNIA REPAIR HYSTERECTOMY INSERT / REPLACE / REMOVE PACEMAKER INSERT / REPLACE / REMOVE PACEMAKER REVISION TOTAL HIP ARTHROPLASTY Right 10/2017 ROTATOR CUFF REPAIR Bilateral TOTAL HIP ARTHROPLASTY Right 10/18/2017 Dr. Stone TOTAL KNEE ARTHROPLASTY Left Dr. Rocha TOTAL SHOULDER ARTHROPLASTY Left 05/17/2017 Dr Stone TRIGGER FINGER RELEASE Left 12/19/2018 TRIGGER FINGER RELEASE Right x2 02/14/18, 09/22/22 TRIGGER FINGER RELEASE Right 10/30/2023 RT IF - Dr Stone Family History Family History Problem Relation Name Age of Onset Stroke Mother Cancer Mother Heart disease Mother Hypertension Mother Cancer Father Stroke Father Hypertension Father Objective Physical Exam Cardiovascular: Comments: Pedal pulses: DP 2/4 right, 1/4 left. PT 1/4 right, 0/4 left. Skin temp is warm to warm. Varicosities: Mild, present Hair growth: present Pulmonary: Effort: Pulmonary effort is normal. Musculoskeletal: General: No swelling or tenderness. Right lower leg: No edema. Left lower leg: No edema. Comments: ROM: ankle joint and subtalar joint ROM are normal and pain free. DEFORMITIES: Digits 2-5 are contracted, 3-5 are flexibly contracted, digits 2 are semi rigidly contracted. . PAIN: R medial hallux nail. pain R 2nd toenail. No further pain with palpation of 5th left digit or along the 4th or 5th metatarsal left. There is no pain with range motion of the 5th and 4th MTPJ left. There is tenderness at dorsal PIPJ L 2nd digit MUSCLE STRENGTH 5/5 for dorsiflexion, plantarflexion, inversion, eversion. Feet: Comments: Date of last diabetic foot exam 10/03/2023 Skin: General: Skin is warm. Capillary Refill: Capillary refill takes 2 to 3 seconds. Findings: No bruising or erythema. Comments: SKIN FINDINGS:No ecchymosis or erythema L 5th toe or dorsal lateral distal foot. Webspaces are clean and dry. NAIL PATHOLOGY:Nail 1 R is discolored, dystrophic, elongated. It is incurvated at the medial border creating pain and pressure along the medial nail fold. Most pain noted at distal medial nail fold. There is localized inflammation, no erythema or drainage. Nail 2 R is 4mm thick, yellow, brittle, incurvated, fungal. Nail 5 L is discolored, elongated, 4mm thick, mycotic. ULCER: none. Neurological: Mental Status: She is alert and oriented to person, place, and time. Comments: VIBRATORY: Vibration is absent at IPJ, diminished at MPJ b/l, medial malleolus b/l and patella R. Absent at L patella. SEMMES-FABRICIO 5.07 MONOFILAMENTintact at 10/10 sites NEUROLOGIC light touch (normal). Pt's L knee is numb after knee replacement. Some neuritis present at 4th and 5th digits L Psychiatric: Mood and Affect: Mood normal. Behavior: Behavior normal. Modifier: Q9, 83909 Assessment/Plan ICD-10-CM 1. Type II or unspecified type diabetes mellitus with neurological manifestations, not stated as uncontrolled(250.60) (CMS/[facility]) E11.49 2. Onychomycosis B35.1 All nails debrided, the mycotic toenails and dystrophic toenails reduced. The nails are debrided in thickness and length. Any redundant tissue in the margins were curetted in an effort to reduce pain and pressure. All nails were debrided with large and small nail nippers, and power burring implemented to remove residual rough edges. With this treatment the patient relates relief of symptomatology. Shoes inspected and good foot hygiene discussed. Patient advised to call if condition exacerbates or issues arise Reviewed options of conservative treating the contracted 2nd digits bilaterally: wearing a shoe with a more flexible fabric in the toe box, shoes with a larger toe box vs silipost pad vs budin splint. Pt reports she has tried silipost pads in the past and they have not worked. She might be interested in budin splint, but does not have the funds for it today. This note was created with the assistance of a speech recognition program. While intending to generate a timely document that accurately reflects the content of the visit, no guarantee can be provided that every grammatical or spelling mistake has been or will be identified or corrected. Thank you for your understanding. Tanisha Molina DPM documented in this encounter [facility] 07-18-2024 History of Present illness Narrative Images from the original note were not included. Date of Service: 07/18/24 PCP: ANAHI REYES MD History of Present Illness Dayanna Grimm is a 73 y.o. female, with stage IIIB chronic kidney disease returning for nephrologic follow-up. When seen in August of last year he BUN was 26 creatinine 1.57 the urine protein creatinine ratio was 0.22 grams/gram the EGFR was 34 mL/min Labs of July 16, 2024 include a urinalysis which was entirely unremarkable on dipstick and microscopic exam the urinary sediment. A urine protein creatinine ratio was 0.16 gram/gram the sodium was 141 potassium 4.4 chloride 106 total CO2 25 BUN 37 creatinine 1.87 EGFR 28 mL/min phosphorus 2.7 intact PTH 84 pg/mL magnesium 1.8 mg/dL. For reference her creatinine on June 01, 2022 was 1.77 mg/dL She is to have surgery on her back soon. She is to have back surgery with Dr. Verma at [place] soon. She tells me she also has a left knee that needs to be operated on. She denies any history of nausea, vomiting, shortness of breath, pruritus, increasing lower extremity edema. Problem List 1. Stage 3 B chronic kidney disease. Previous nephrologic investigations included a renal ultrasound showing the right kidney measured 10 cm and the left kidney 9 cm and bipolar dimension with no hydronephrosis a serum protein electrophoresis with immunofixation revealed no evidence of monoclonal protein disorder. An NITESH screen was negative complement C3 and C4 were normal. Anti neutrophilic cytoplasmic antibody titers were negative urinalysis showed the absence of protein or blood on dipstick exam and urine protein creatinine ratio was 0.3 grams/gram. 2. Hypothyroidism. 3. Complete heart block status post permanent Pacemaker placement. 4.Prsistent atrial fibrillation. 5. Chronic anticoagulation for atrial fibrillation. 6. Obstructive sleep apnea. 7. Degenerative joint disease status post right total hip arthroplasty 10/18/2017. 8. History of left total shoulder arthroplasty with distal clavicle excision 05/17/2017. 9. History of open reduction internal fixation of a right ankle fracture. 10. History of cholecystectom , total hysterectomy, appendectomy, left carpal release surgery. 11. Hypertension Surgical, Family & Social History Surgical History: Past Surgical History: Procedure Laterality Date APPENDECTOMY CARDIAC PACEMAKER PLACEMENT CARPAL TUNNEL RELEASE Left CHOLECYSTECTOMY COLONOSCOPY N/A 09/03/2018 Performed by Roberto Carlos Watts MD at [facility] FRACTURE SURGERY Right ankle HERNIA REPAIR HYSTERECTOMY INJECTION ANESTHETIC AGENT LUMBAR / THORACIC also to hips and knees INJECTION BLOCK NERVE MEDIAL BRANCH BILAT L 4/5,5/1 Bilateral 10/09/2020 Performed by Jonathan Baugh MD at [facility] CAUDAL EPIDURAL WITH CATHETER, STEROID N/A 10/29/2018 Performed by Jonathan Baugh MD at [facility] LARGE JOINT BURSA HIP Right 02/17/2017 Performed by Jonathan Baugh MD at [facility] MEDIAL BRANCH NERVE BLOCK Bilateral L 4/5, 5 Bilateral 05/03/2019 Performed by Jonathan Baugh MD at [facility] OOPHORECTOMY ORIF ANKLE FRACTURE Right ORTHOPEDIC SURGERY Left 06/2018 left leg brace RELEASE TRIGGER FINGER Left 10/12/2022 Performed by Paris Stone DO at [facility] RELEASE TRIGGER FINGER Right 09/22/2022 Performed by Paris Stone DO at [facility] RELEASE TRIGGER FINGER Left 12/19/2018 Performed by Paris Stone DO at [facility] RELEASE TRIGGER FINGER Right 02/14/2018 Performed by Paris Stone DO at [facility] REPLACEMENT TOTAL JOINT HIP Right 10/18/2017 Performed by Paris Stone DO at [facility] REPLACEMENT TOTAL JOINT KNEE Left 05/21/2020 Performed by Guillermo Brown MD at [facility] REVERSE ARTHROPLASTY TOTAL SHOULDER Left 05/17/2017 Performed by Paris Stone DO at [facility] SHOULDER SURGERY Left x2 Social History: Social History Socioeconomic History Marital status: Spouse name: Not on file Number of children: Not on file Years of education: Not on file Highest education level: Not on file Occupational History Not on file Tobacco Use Smoking status: Never Smokeless tobacco: Never Vaping Use Vaping status: Never Used Substance and Sexual Activity Alcohol use: Never Drug use: No Sexual activity: Defer Partners: Male Other Topics Concern Caffeine Use Yes Social History Narrative Not on file Social Drivers of Health Financial Resource Strain: Medium Risk (06/01/2022) Overall Financial Resource Strain (CARDIA) Difficulty of Paying Living Expenses: Somewhat hard Food Insecurity: No Food Insecurity (04/11/2024) Hunger Screening Food Insecurity - Worry: Never True Food Insecurity - Inability: Never True Transportation Needs: No Transportation Needs (06/01/2022) PRAPARE - Transportation Lack of Transportation (Medical): No Lack of Transportation (Non-Medical): No Physical Activity: Inactive (06/01/2022) Exercise Vital Sign Days of Exercise per Week: 0 days Minutes of Exercise per Session: 0 min Stress: Stress Concern Present (06/01/2022) Stateless [place] of Occupational Health - Occupational Stress Questionnaire Feeling of Stress : Rather much Social Connections: Moderately Isolated (06/01/2022) Social Connection and Isolation Panel [NHANES] Frequency of Communication with Friends and Family: Three times a week Frequency of Social Gatherings with Friends and Family: Three times a week Attends Denominational Services: Never Active Member of Clubs or Organizations: No Attends Club or Organization Meetings: Never Marital Status: Interpersonal Safety: Not At Risk (06/01/2022) Humiliation, Afraid, Rape, and Kick questionnaire Fear of Current or Ex-Partner: No Emotionally Abused: No Physically Abused: No Sexually Abused: No Housing Instability: Not on file Family History: Family History Problem Relation Age of Onset Cancer Mother Heart disease Mother Bone cancer Mother Cancer Father Heart disease Sister ALS Sister Colon cancer Daughter Heart attack Son Anesthesia problems Neg Hx Bleeding Disorder Neg Hx Breast cancer Neg Hx Allergies & Medications Allergies: Allergies Allergen Reactions Atorvastatin Other (See Comments) Other reaction(s): Intolerance-unknown Myalgia Cortisone Tachycardia Other reaction(s): Intolerance-unknown Ok for pain procedures Hydrocortisone Other reaction(s): Intolerance-unknown Other reaction(s): Intolerance-unknown Azithromycin Vomiting Other reaction(s): Intolerance-unknown Crestor [Rosuvastatin] Itching and Rash Dabigatran Etexilate Nausea (Pradaxa) Erythromycin Base Vomiting Other reaction(s): Intolerance-unknown Levofloxacin Dizziness Sulfamethoxazole-Trimethoprim Vomiting Other reaction(s): Intolerance-unknown Other reaction(s): Intolerance-unknown Current Meds: Current Outpatient Medications Medication Sig Dispense Refill esomeprazole (NexIUM) 40 mg capsule Take 1 capsule (40 mg total) by mouth in the morning. furosemide (LASIX) 40 mg tablet Take 1 tablet (40 mg total) by mouth as needed (edema). 90 tablet 1 insulin lispro (HumaLOG) 100 unit/mL injection Inject under the skin. Sliding scale levothyroxine (SYNTHROID, LEVOTHROID) 25 MCG tablet Take 1 tablet (25 mcg total) by mouth in the evening. lovastatin (MEVACOR) 40 mg tablet Take 2 tablets (80 mg total) by mouth nightly. 180 tablet 1 meclizine (ANTIVERT) 25 mg tablet Take 1 tablet (25 mg total) by mouth 3 (three) times a day as needed for dizziness. metoprolol tartrate (LOPRESSOR) 25 mg tablet Take 1 tablet (25 mg total) by mouth in the morning and 1 tablet (25 mg total) before bedtime. 180 tablet 2 nystatin (MYCOSTATIN) powder Apply 1 Application topically in the morning and 1 Application at noon and 1 Application in the evening and 1 Application before bedtime. 15 g 0 ondansetron ODT (ZOFRAN ODT) 8 mg disintegrating tablet DISSOLVE 1 TABLET IN MOUTH TWICE DAILY NEEDED ONETOUCH DELICA PLUS LANCET 33 gauge [facility] ONETOUCH VERIO TEST STRIPS strip USE 1 STRIP TO CHECK GLUCOSE TWICE DAILY rivaroxaban (XARELTO) 15 mg tablet Take 1 tablet (15 mg total) by mouth in the morning. 90 tablet 1 semaglutide (OZEMPIC) 0.25 mg or 0.5 mg(2 mg/1.5 mL) pen injector Inject 2 mg under the skin once a week. sertraline (ZOLOFT) 25 mg tablet Take 4 tablets (100 mg total) by mouth in the morning. cholecalciferol (VITAMIN D3) 50,000 units capsule 1 capsule (50,000 Units total). (Patient not taking: Reported on 07/18/2024) clobetasoL (TEMOVATE) 0.05 % cream Apply 1 Application topically in the morning and 1 Application before bedtime. (Patient not taking: Reported on 07/18/2024) 30 g 0 estradioL (ESTRACE) 0.01 % (0.1 mg/gram) vaginal cream Insert 1 g into the vagina in the morning. (Patient not taking: Reported on 07/18/2024) 42.5 g 3 gabapentin (NEURONTIN) 300 mg capsule Take 1 capsule (300 mg total) by mouth 3 (three) times a day. (Patient not taking: Reported on 07/18/2024) 90 capsule 1 No current facility-administered medications for this visit. Review of Systems Review of Systems Physical Exam Vital Signs: Vitals: 07/18/24 1417 07/18/24 1420 BP: 148/70 139/75 BP Site: Left Arm Left Arm BP Postition: Sitting Standing BP CUFF SIZE: M (9-13 inches) M (9-13 inches) Pulse: 74 77 Weight: 79.2 kg (174 lb 11.2 oz) Height: 152.4 cm (5') BMI: Body mass index is 34.12 kg/m . General appearance: alert in no apparent distress. Psychiatric: Oriented to place, time and person HEENT: atraumatic, supple, moist oral mucosa, no JVD Cardiovascular: normal S1-S2 Respiratory: No respiratory distress with no use of accessory muscles. Clear to auscultation bilaterally with no wheezes or crackles Abdomen: soft, no tenderness, no guarding, positive bowel sounds and no hepato or splenomegaly Vascular: adequate pulses and no carotid bruits. Musculoskeletal: no joint swelling or tenderness. Neurologic: No focal deficit in upper or lower extremities Lymphatic: no cervical or axillary lymphadenopathy. Edema:no lower extremity edema. Laboratory Studies Chemistry: Lab Results Component Value Date SODIUM 141 07/15/2024 SODIUM 141 08/17/2023 SODIUM 139 05/05/2023 SODIUM 139 10/03/2022 SODIUM 140 09/05/2022 K 4.4 07/15/2024 K 4.6 08/17/2023 K 4.8 05/05/2023 K 4.3 10/03/2022 K 5.2 (H) 09/05/2022 CL 106 07/15/2024 CL 103 08/17/2023 CL 101 05/05/2023 CL 104 10/03/2022 CL 102 09/05/2022 CO2 25 07/15/2024 CO2 30 08/17/2023 CO2 29 05/05/2023 CO2 25 10/03/2022 CO2 28 09/05/2022 ANIONGAP 10 07/15/2024 ANIONGAP 8 08/17/2023 ANIONGAP 9 05/05/2023 ANIONGAP 10 10/03/2022 ANIONGAP 10 09/05/2022 BUN 37 (H) 07/15/2024 BUN 26 08/17/2023 BUN 31 (H) 05/05/2023 BUN 28 (H) 10/03/2022 BUN 28 (H) 09/05/2022 CREATININE 1.87 (H) 07/15/2024 CREATININE 1.57 (H) 08/17/2023 CREATININE 1.52 (H) 05/05/2023 CREATININE 1.55 (H) 10/03/2022 CREATININE 1.55 (H) 09/05/2022 EGFR 28 (L) 07/15/2024 EGFR 34 (L) 08/17/2023 EGFR 36 (L) 05/05/2023 EGFR 35 (L) 10/03/2022 EGFR 35 (L) 09/05/2022 CALCIUM 9.3 07/15/2024 CALCIUM 9.4 08/17/2023 CALCIUM 9.9 05/05/2023 CALCIUM 9.2 10/03/2022 CALCIUM 9.4 09/05/2022 MG 1.8 07/15/2024 MG 1.9 08/17/2023 MG 1.9 05/05/2023 MG 2.1 09/05/2022 MG 2.2 06/02/2022 PHOSPHORUS 2.7 07/15/2024 PHOSPHORUS 4.0 08/17/2023 PHOSPHORUS 3.6 09/05/2022 PHOSPHORUS 4.1 01/27/2022 PHOSPHORUS 3.7 04/15/2019 Lab Results Component Value Date TOTALPROTEI 7.1 05/05/2023 TOTALPROTEI 6.8 01/31/2022 ALBUMIN 4.2 05/05/2023 ALBUMIN 3.8 01/31/2022 AST 14 05/05/2023 AST 16 01/31/2022 ALT 15 05/05/2023 ALT 16 01/31/2022 BILIRUBIN Negative 07/16/2024 BILIRUBIN Negative 01/02/2024 ALKPHOS 68 05/05/2023 ALKPHOS 69 01/31/2022 Hematology: Lab Results Component Value Date WBC 7.9 07/15/2024 WBC 10.2 08/17/2023 HGB 11.9 07/15/2024 HGB 12.1 08/17/2023 HCT 36.0 07/15/2024 HCT 37.1 08/17/2023 PLT 185 07/15/2024 PLT 215 08/17/2023 Anemia Studies: Lab Results Component Value Date [id number] 361 01/30/2017 Mineral and Bone Labs: Lab Results Component Value Date CALCIUM 9.3 07/15/2024 CALCIUM 9.4 08/17/2023 PHOSPHORUS 2.7 07/15/2024 PHOSPHORUS 4.0 08/17/2023 VITD25 94.6 08/17/2023 VITD25 21.4 (L) 09/05/2022 PTH 84 07/15/2024 PTH 73 08/17/2023 Urine Studies: Lab Results Component Value Date COLOR YELLOW 07/16/2024 TURBIDITY CLEAR 07/16/2024 SPECIFICGRA 1.013 07/16/2024 NITRITE Negative 07/16/2024 PHURINE 6.0 07/16/2024 LEUKOCYTE Negative 07/16/2024 PROTEIN Negative 07/16/2024 KETONES Negative 07/16/2024 UROBILINOGEN <1.1 07/16/2024 BLOODHGB Negative 07/16/2024 Lab Results Component Value Date UPROCRTRAT 0.16 07/16/2024 UPROCRTRAT 0.22 (H) 08/17/2023 UPROCRTRAT 0.18 09/05/2022 UPROCRTRAT 0.26 (H) 02/11/2022 UPROCRTRAT 0.28 (H) 01/27/2022 Immunology Profile Lab Results Component Value Date SEDRATE 11 07/15/2020 CRP 0.8 (H) 07/15/2020 No results found for: HAV , HEPAIGM , HEPBIGM , HEPBCAB , HBEAG , HEPCAB Imaging Echocardiogram: No results found. IMPRESSION 1. Stage 4 chronic kidney disease: This has been attributed to diabetic nephropathy or hypertensive nephrosclerosis. She continues on the angiotensin receptor lacie losartan for renal protection and protein sparing. Her creatinine is slightly higher than it has been at the time of previous visits. This may be the result of prerenal factors, the progression of her renal disease, or a manifestation of the hemodynamically beneficial effects of losartan. Of note she has lost 30 lbs on Ozempic. PLAN 1. Target systolic blood pressure to less than 130 mm of mercury 2. Target hemoglobin A1c to less than 7% 3. Continue losartan for renal protection and protein sparing 4. Avoid prolonged use of nonsteroidal anti-inflammatory drug or proton pump inhibitors 5. She is to return to this office in 6 months time for repeat evaluation will reassess her renal function at that time. 6. The patient is cleared from a nephrologic standpoint for her back surgery. Thank you ANAHI REYES MD for the opportunity to participate in the care of your patients! Please contact me at [phone] (Office) or [phone] (Answering service) with any questions. BAUDILIO MENDOZA MD [facility] This note was created with the assistance of a speech-recognition program. Although the intention is to generate a document that actually reflects the content of the visit, no guarantees can be provided that every mistake has been identified and corrected by editing. BAUDILIO MENDOZA MD,PhD [facility] ANY QUESTIONS FEEL FREE TO CALL: 1. OFFICE [phone] 2. ANSWERING SERVICE: [phone] documented in this encounter [facility] 07-18-2024 Miscellaneous Notes Addended by: BAUDILIO MENDOZA on: 07/18/2024 02:47 PM Modules accepted: Orders documented in this encounter [facility] 07-18-2024 Note Addended by: BAUDILIO VIRAMONTES on: 07/18/2024 02:47 PM Modules accepted: Orders [facility] 07-11-2024 Miscellaneous Notes Left message for patient to call the office back to confirm upcoming appointment 07/18 at 2:[address] Mendoza in [place]. Also stated that patient needs to get labs done prior to upcoming appointment documented in this encounter [facility] 07-11-2024 Telephone encounter Note Left message for patient to call the office back to confirm upcoming appointment 07/18 at 2:[address] Mendoza in [place]. Also stated that patient needs to get labs done prior to upcoming appointment [facility] 05-02-2024 History of Present illness Narrative Images from the original note were not included. Subjective Patient ID: Dayanna Grimm is a 73 y.o. female who presents for DM Foot Care (PCP: Dany CARRERO 03/11/24, A1C: 6.1, BS: 95). HPI Established patient returns with complaints elongated thick fungal nails. She is requesting nail debridement today. She states the right lateral hallux nail is ingrown and tender for her. She is also complaining of the 2nd digits bilaterally that are becoming more contracted and painful in shoe gear. Review of Systems Medications Current Outpatient Medications: ALPRAZolam (Xanax) 0.25 MG tablet, every 12 (twelve) hours., Disp: , Rfl: BD Pen Needle Wendi 2nd Gen 32G X 4 MM [facility], USE 1 PEN NEEDLE SUBCUTANEOUSLY ONCE DAILY, Disp: , Rfl: cholecalciferol (Vitamin D-3) 1.25 MG (54444 UT) capsule, Take 1 capsule by mouth 1 (one) time per week., Disp: , Rfl: clotrimazole (Lotrimin) 1 % cream, Apply 1 application topically in the morning and 1 application before bedtime., Disp: , Rfl: esomeprazole (NexIUM) [address] capsule, Take 20 mg by mouth Daily, Disp: , Rfl: glucose blood (EdSurgeuch Verio) test strip, Check bg levels 3 times a day, Disp: 300 each, Rfl: 3 insulin lispro (HumaLOG KWIKPEN) 100 UNIT/ML injection, INJECT SUBCUTANEOUSLY PER SLIDING SCALE DIRECTED 1:30 > 150 MG/DL ( max 30 units a day) for 30 days, Disp: 15 mL, Rfl: 3 Lancets (OneTouch Delica Plus [id number]) [facility], USE 1 TO CHECK GLUCOSE THREE TIMES DAILY, Disp: , Rfl: Lasix 40 MG tablet, 1 (one) time each day at the same time., Disp: , Rfl: levothyroxine (Synthroid, Levoxyl) 25 MCG tablet, 1 (one) time each day at the same time., Disp: , Rfl: losartan (Cozaar) 25 MG tablet, Take 25 mg by mouth Daily, Disp: , Rfl: lovastatin (Mevacor) 40 MG tablet, Take 80 mg by mouth at bedtime, Disp: , Rfl: meclizine (Antivert) 25 MG tablet, 1 tablet as needed Orally 3 xs daily as needed for 90 days, Disp: , Rfl: metoprolol tartrate (Lopressor) 25 MG tablet, every 12 (twelve) hours., Disp: , Rfl: ondansetron ODT (Zofran-ODT) 8 MG disintegrating tablet, 1 tablet on the tongue and allow to dissolve as needed Orally twice daily for 90 days, Disp: , Rfl: rivaroxaban (Xarelto) 15 MG tablet, Take 15 mg by mouth in the morning., Disp: , Rfl: Semaglutide, 2 MG/DOSE, (Ozempic, 2 MG/DOSE,) 8 MG/3ML solution pen-injector, Inject 1 mg under the skin every 7 (seven) days, Disp: 9 mL, Rfl: 3 sertraline (Zoloft) 100 MG tablet, 1 (one) time each day at the same time, Disp: , Rfl: simethicone (Mylicon,Gas-X) 125 MG capsule, 1 tablet as needed Orally at bedtime, Disp: , Rfl: Allergies Atorvastatin, Azithromycin, Cortisone, Acetaminophen, Amoxicillin-pot clavulanate, Cefdinir, Doxycycline, Duloxetine hcl, Erythromycin, Hydrochlorothiazide, Hydrocodone, Lisinopril, Metronidazole, Moxifloxacin, Nitrofurantoin, Simvastatin, Venlafaxine, Dabigatran, Dulaglutide, Erythromycin base, Levofloxacin, Rosuvastatin, and Sulfamethoxazole-trimethoprim Past Surgical History Past Surgical History: Procedure Laterality Date APPENDECTOMY CHOLECYSTECTOMY COLONOSCOPY DENTAL SURGERY Tooth extracted HERNIA REPAIR HYSTERECTOMY INSERT / REPLACE / REMOVE PACEMAKER INSERT / REPLACE / REMOVE PACEMAKER REVISION TOTAL HIP ARTHROPLASTY Right 10/2017 ROTATOR CUFF REPAIR Bilateral TOTAL HIP ARTHROPLASTY Right 10/18/2017 Dr. Stone TOTAL KNEE ARTHROPLASTY Left Dr. Rocha TOTAL SHOULDER ARTHROPLASTY Left 05/17/2017 Dr Stone TRIGGER FINGER RELEASE Left 12/19/2018 TRIGGER FINGER RELEASE Right x2 02/14/18, 09/22/22 TRIGGER FINGER RELEASE Right 10/30/2023 RT IF - Dr Stone Family History Family History Problem Relation Name Age of Onset Stroke Mother Cancer Mother Heart disease Mother Hypertension Mother Cancer Father Stroke Father Hypertension Father Objective Physical Exam Cardiovascular: Comments: Pedal pulses: DP 2/4 right, 1/4 left. PT 1/4 right, 0/4 left. Skin temp is warm to warm. Varicosities: Mild, present Hair growth: present Pulmonary: Effort: Pulmonary effort is normal. Musculoskeletal: General: No swelling or tenderness. Right lower leg: No edema. Left lower leg: No edema. Comments: ROM: ankle joint and subtalar joint ROM are normal and pain free. DEFORMITIES: Digits 2-5 are contracted, 3-5 are flexibly contracted, digits 2 are semi rigidly contracted. . PAIN: R medial hallux nail. pain R 2nd toenail. No further pain with palpation of 5th left digit or along the 4th or 5th metatarsal left. There is no pain with range motion of the 5th and 4th MTPJ left. There is tenderness at dorsal PIPJ L 2nd digit MUSCLE STRENGTH 5/5 for dorsiflexion, plantarflexion, inversion, eversion. Feet: Comments: Date of last diabetic foot exam 10/03/2023 Skin: General: Skin is warm. Capillary Refill: Capillary refill takes 2 to 3 seconds. Findings: No bruising or erythema. Comments: SKIN FINDINGS:No ecchymosis or erythema L 5th toe or dorsal lateral distal foot. Webspaces are clean and dry. NAIL PATHOLOGY:Nail 1 R is discolored, dystrophic, elongated. It is incurvated at the medial border creating pain and pressure along the medial nail fold. Most pain noted at distal medial nail fold. There is localized inflammation, no erythema or drainage. Nail 2 R is 4mm thick, yellow, brittle, incurvated, fungal. Nail 5 L is discolored, elongated, 4mm thick, mycotic. ULCER: none. Neurological: Mental Status: She is alert and oriented to person, place, and time. Comments: VIBRATORY: Vibration is absent at IPJ, diminished at MPJ b/l, medial malleolus b/l and patella R. Absent at L patella. SEMMES-FABRICIO 5.07 MONOFILAMENTintact at 10/10 sites NEUROLOGIC light touch (normal). Pt's L knee is numb after knee replacement. Some neuritis present at 4th and 5th digits L Psychiatric: Mood and Affect: Mood normal. Behavior: Behavior normal. Modifier: Q9, 79659 Assessment/Plan ICD-10-CM 1. Type II or unspecified type diabetes mellitus with neurological manifestations, not stated as uncontrolled(250.60) (CMS/[facility]) E11.49 2. Onychomycosis B35.1 3. Ingrown nail L60.0 4. Hammer toes of both feet M20.41 M20.42 2. All mycotic nails were debrided in length and thickness by manual and mechanical means. Small and large nail nipper used along with electronic charisma. Regular debridement was effective in removing offending ingrown piece of the right lateral hallux nail. Advised patient of proper foot care to prevent any future complications. Reviewed options of conservative treating the contracted 2nd digits bilaterally: wearing a shoe with a more flexible fabric in the toe box, shoes with a larger toe box vs silipost pad vs budin splint. Pt reports she has tried silipost pads in the past and they have not worked. She might be interested in budin splint, but does not have the funds for it today. This note was created with the assistance of a speech recognition program. While intending to generate a timely document that accurately reflects the content of the visit, no guarantee can be provided that every grammatical or spelling mistake has been or will be identified or corrected. Thank you for your understanding. Tanisha Molina DPM documented in this encounter [facility] 03-11-2024 History of Present illness Narrative Associated Problem(s): Type 2 diabetes mellitus with stage 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ney disease, without long-term current use of insulin ([facility]) ([facility]) During the appointment today all pertinent labs, imaging, health maintenance, and glucose readings were reviewed. Encouraged to check blood glucose throughout the day with some fasting and some PP readings. They are to bring their glucose meter/cgm in to all appointments. All of the patients questions, treatment options, and current care plan and goals were discussed. A copy of this along with pertinent instructions were given to the patient at the end of the appointment. The patient voices understanding of all of this and is to call in between appointments if they have any problems or questions. Dayanna Grimm is doing very well and encouraged on this. Will decrease ozempic to 1 mg to see if this helps to improve her appetite. Instructed on how to use 1 mg dose on the 2 mg ozempic pen. Images from the original note were not included. Dayanna Grimm is a 73 y.o. female presents with chief complaint of Diabetes HPI: Diabetes Mellitus Follow-up: Dayanna Grimm is here for follow-up evaluation of diabetes mellitus. The initial diagnosis of diabetes was made in 2010 Diabetes complications: none She has been checking her blood glucose once a day in the morning. Bg running 80-110 Last A1c: 6.5 on 09/08/2023 Last eye exam: 2021 Current concerns include: States her bg levels are improving. Paying better attention to what she eats. Decreased appetite Diet: smaller portions. protein shakes if she doesn't eat a meal Drinks: water, regular pop once a day, decaf coffee with cream and green tea with tsp of sugar Exercise: none Hypoglycemia: rare SUBJECTIVE: PROBLEM LIST SOCIAL ALLERGIES: Patient Active Problem List Diagnosis Acute idiopathic pericarditis Acute left-sided thoracic back pain Adenomatous polyp of descending colon Adenomatous polyp of rectum Amnesia Anxiety Arthritis of carpometacarpal (CMC) joint of right thumb Bilateral low back pain without sciatica Bilateral sacroiliitis (CMS/HCC) Bradycardia Carpal tunnel syndrome Change in bowel habits Claustrophobia (CMS/HCC) Degenerative arthritis Anxiety and depression ([facility]/HCC) Difficulty walking Disorder of sacrum Fractures GERD (gastroesophageal reflux disease) Acquired hammer toe of left foot Acquired hammer toe of right foot History of adenomatous polyp of colon Hyperlipidemia (CMS/HCC) HTN (hypertension) (CMS/HCC) Hypothyroid ([facility]) Internal derangement of right shoulder Localized, 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 Disc displacement, lumbar Lumbar degenerative disc disease Lumbar spondylosis Lumbosacral spondylosis without myelopathy Migraine (CMS/HCC) Obese Neurogenic pain Nocturnal hypoxia Sleep apnea Osteoarthritis of right hip Other chronic pain Palpitations Paroxysmal atrial fibrillation ([facility]) Peripheral vertigo Polyneuropathy Presence of cardiac pacemaker Presence of right artificial hip joint Arthritis of left knee Rectal bleeding Right hip pain Restless leg syndrome Rotator cuff tear arthropathy, left Seasonal allergies Sensorineural hearing loss, bilateral Status post reverse arthroplasty of left shoulder Status post total hip replacement, right Tinnitus of left ear Mitral valve insufficiency Trochanteric bursitis of both hips Varicose veins of lower extremity Vertigo Visual impairment VPB (ventricular premature beat) Type 2 diabetes mellitus with stage 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ney disease, without long-term current use of insulin ([facility]) ([facility]) Abnormal kidney function Chronic heart failure with preserved ejection fraction ([facility]) Neuropathy Airway hyperreactivity ([facility]) Anemia Head pain cephalgia CKD (chronic kidney disease) stage 3, GFR 30-59 ml/min ([facility]) ([facility]/HCC) Diverticulosis of colon Fatigue Vitamin B deficiency Vitamin D deficiency Hoarse LPRD (laryngopharyngeal reflux disease) Social History Tobacco Use Smoking status: Never Smokeless tobacco: Never Substance Use Topics Alcohol use: Not Currently Drug use: Never Allergies Allergen Reactions Atorvastatin Other Reaction(s): Comments: myalgia, Other (See Comments), Unknown Other reaction(s): Intolerance-unknown Myalgia Other Reaction(s): Comments: myalgia Azithromycin Nausea And Vomiting and Rash Other Reaction(s): Unknown, Vomiting Other reaction(s): Intolerance-unknown Other Reaction(s): Vomiting Cortisone Other Reaction(s): Chest pain, Tachycardia, Unknown Other reaction(s): Intolerance-unknown Ok for pain procedures Acetaminophen Other Reaction(s): Difficulty Breathing Amoxicillin-Pot Clavulanate Other Reaction(s): Skin Rashes , Itching Cefdinir Unknown Doxycycline Other Reaction(s): Unknown Duloxetine Hcl Other Reaction(s): Comments: Itching-possibly from Cymbalta Erythromycin Other Reaction(s): Vomiting Hydrochlorothiazide Other Reaction(s): Unknown Hydrocodone Other Reaction(s): Difficulty Breathing Lisinopril Other Reaction(s): Unknown Metronidazole Other Reaction(s): Unknown Moxifloxacin Other Reaction(s): Comments: very faint rash on forearms and legs. Nitrofurantoin Unknown Simvastatin Other Reaction(s): Unknown Venlafaxine Other Reaction(s): Unknown Dabigatran Nausea Only (Pradaxa) Dulaglutide Rash Other Reaction(s): rash Erythromycin Base Other Reaction(s): Unknown, Vomiting Other reaction(s): Intolerance-unknown Levofloxacin Dizziness Other Reaction(s): Unknown Rosuvastatin Itching and Rash Other Reaction(s): Rash , Itching Sulfamethoxazole-Trimethoprim Other Reaction(s): Vomiting Other reaction(s): Intolerance-unknown Other reaction(s): Intolerance-unknown Synopsis [facility] 03/11/2024 Antidiabetic medications Insulin Lispro INJECT SUBCUTANEOUSLY PER SLIDING SCALE DIRECTED 1:30 > 150 MG/DL ( max 30 units a day) for 30 days (100 UNIT/ML SOPN) No sig Semaglutide 2 mg q7 days SC (8 MG/3ML SOPN) -Discontinued (Dose adjustm) No sig Semaglutide 1 mg q7 days SC (8 MG/3ML SOPN) Labs MHPT A1C 6.1 Outpatient prescription Medication marked as long-term REVIEW OF SYMPTOMS: Review of Systems Constitutional: Positive for fatigue. Negative for appetite change and unexpected weight change. Eyes: Negative for visual disturbance. Respiratory: Negative for cough, shortness of breath and wheezing. Cardiovascular: Negative for chest pain, palpitations and leg swelling. Neurological: Negative for numbness. Endocrine: Negative for polydipsia, polyphagia and polyuria. OBJECTIVE: 03/11/2024 2:28 PM 01/18/2024 1:08 PM 11/16/2023 1:40 PM Vitals BMI 33.79 kg/m2 33.2 kg/m2 33.98 kg/m2 Systolic 122 107 Diastolic 60 70 Heart Rate 66 Temp 98.2 F Height (in) 5' 5' 5' Weight (lb) 173 170 174 Visit Report Report Report Physical Exam Constitutional: General: She is not in acute distress. Appearance: Normal appearance. Cardiovascular: Rate and Rhythm: Normal rate and regular rhythm. Heart sounds: No murmur heard. No friction rub. No gallop. Pulmonary: Breath sounds: Normal breath sounds. No wheezing, rhonchi or rales. Musculoskeletal: General: No swelling. Neurological: Mental Status: She is alert. ASSESSMENT AND PLAN: Problem List Items Addressed This Visit Type 2 diabetes mellitus with stage 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ney disease, without long-term current use of insulin ([facility]) ([facility]) During the appointment today all pertinent labs, imaging, health maintenance, and glucose readings were reviewed. Encouraged to check blood glucose throughout the day with some fasting and some PP readings. They are to bring their glucose meter/cgm in to all appointments. All of the patients questions, treatment options, and current care plan and goals were discussed. A copy of this along with pertinent instructions were given to the patient at the end of the appointment. The patient voices understanding of all of this and is to call in between appointments if they have any problems or questions. Dayanna Hortontke is doing very well and encouraged on this. Will decrease ozempic to 1 mg to see if this helps to improve her appetite. Instructed on how to use 1 mg dose on the 2 mg ozempic pen. Relevant Medications Semaglutide, 2 MG/DOSE, (Ozempic, 2 MG/DOSE,) 8 MG/3ML solution pen-injector Other Relevant Orders POCT glycosylated hemoglobin (Hb A1C) docked device (Completed) Follow up in about 6 months (around 09/08/2024) for Recheck. Patient's Medications New Prescriptions No medications on file Previous Medications ALPRAZOLAM (XANAX) 0.25 MG TABLET every 12 (twelve) hours. BD PEN NEEDLE WENDI 2ND GEN 32G X [address] [facility] [place] PEN NEEDLE SUBCUTANEOUSLY ONCE DAILY CHOLECALCIFEROL (VITAMIN D-3) 1.25 MG (40674 UT) CAPSULE Take 1 capsule by mouth 1 (one) time per week. CLOTRIMAZOLE (LOTRIMIN) 1 % CREAM Apply 1 application topically in the morning and 1 application before bedtime. ESOMEPRAZOLE (NEXIUM) [address] CAPSULE Take 20 mg by mouth Daily GLUCOSE BLOOD (SVAS BiosanaUCH VERIO) TEST STRIP Check bg levels 3 times a day INSULIN LISPRO (HUMALOG KWIKPEN) 100 UNIT/ML INJECTION INJECT SUBCUTANEOUSLY PER SLIDING SCALE DIRECTED 1:30 > 150 MG/DL ( max 30 units a day) for 30 days LANCETS (SVAS BiosanaUCH DELICA PLUS [id number]) [facility] 1 TO CHECK GLUCOSE THREE TIMES DAILY LASIX 40 MG TABLET 1 (one) time each day at the same time. LEVOTHYROXINE (SYNTHROID, LEVOXYL) 25 MCG TABLET 1 (one) time each day at the same time. LOSARTAN (COZAAR) 25 MG TABLET Take 25 mg by mouth Daily LOVASTATIN (MEVACOR) 40 MG TABLET Take 80 mg by mouth at bedtime MECLIZINE (ANTIVERT) 25 MG TABLET 1 tablet as needed Orally 3 xs daily as needed for 90 days METOPROLOL TARTRATE (LOPRESSOR) 25 MG TABLET every 12 (twelve) hours. ONDANSETRON ODT (ZOFRAN-ODT) 8 MG DISINTEGRATING TABLET 1 tablet on the tongue and allow to dissolve as needed Orally twice daily for 90 days RIVAROXABAN (XARELTO) 15 MG TABLET Take 15 mg by mouth in the morning. SERTRALINE (ZOLOFT) 100 MG TABLET 1 (one) time each day at the same time SIMETHICONE (MYLICON,GAS-X) 125 MG CAPSULE 1 tablet as needed Orally at bedtime Modified Medications Modified Medication Previous Medication SEMAGLUTIDE, 2 MG/DOSE, (OZEMPIC, 2 MG/DOSE,) 8 MG/3ML SOLUTION PEN-INJECTOR Semaglutide, 2 MG/DOSE, (Ozempic, 2 MG/DOSE,) 8 MG/3ML solution pen-injector Inject 1 mg under the skin every 7 (seven) days Inject 2 mg under the skin every 7 (seven) days Discontinued Medications METHYLPREDNISOLONE (MEDROL DOSPAK) 4 MG TABLETS Follow schedule on package instructions POLYETHYLENE GLYCOL, PEG, 3350 (MIRALAX) 17 GM/SCOOP POWDER Take 17 g by mouth 1 (one) time each day at the same time I have reviewed and reconciled the history and medication list with the patient today. documented in this encounter [facility] 10-31-2023 Note [id number] [facility] 10-30-2023 Note [facility] SURGERY Clinical Discharge Summary PERSON INFORMATION Name DAYANNA GRIMM Age 72 Years 1950 Sex FEMALE Language Paraguayan PCP Angy CHAPMAN, Naya Ulrich Marital Status Med Service Ambulatory Surgery Acct# Arrival 10/30/2023 10:44:52 Visit Reason Surgery-Trigger finger release Acuity LOS 046 01:26 Address: [address] [place] [address] Comment: PROVIDER INFORMATION VITALS INFORMATION Vital Sign Triage Latest Temp Oral Temp Temporal Temp Intravascular Temp Axillary Temp Rectal 02 Sat 97 % 95 % Respiratory Rate Peripheral Pulse Rate Apical Heart Rate Blood Pressure / 67 mmHg / 71 mmHg Comment: MEDICAL INFORMATION Allergy Info: Bactrim DS; Levaquin; Zithromax; cortisone Prescriptions Given: cholecalciferol (Vitamin D3 50,000 intl units oral capsule) 1 cap(s) Oral (given by mouth) Every Monday. esomeprazole (esomeprazole 20 mg oral delayed release capsule) 1 cap(s) Oral (given by mouth) every day. insulin lispro (HumaLOG) Subcutaneous (under the skin)., sliding scale, Patient will bring in the sliding scale chart with her on surgery day levothyroxine (levothyroxine 25 mcg (0.025 mg) oral tablet) 1 tab(s) Oral (given by mouth) every day. losartan (losartan 25 mg oral tablet) 1 tab(s) Oral (given by mouth) every day. lovastatin (lovastatin 40 mg oral tablet) 1 tab(s) Oral (given by mouth) every day. meclizine (meclizine 25 mg oral tablet) 1 tab(s) Oral (given by mouth) 3 times a day (scheduled) as needed for dizziness. metoprolol (metoprolol tartrate) 1 tab(s) Oral (given by mouth) 2 times a day (scheduled)., 25 mg ondansetron (ondansetron 8 mg oral tablet) 1 tab(s) Oral (given by mouth) as needed Nausea. rivaroxaban (Xarelto 20 mg oral tablet) 1 tab(s) Oral (given by mouth) once a day (in the evening). semaglutide (Ozempic 2 mg/1.5 mL (0.25 mg or 0.5 mg dose) subcutaneous solution) 0.25 Milligram Subcutaneous (under the skin) Every Monday. rotate injection sites. sertraline (sertraline 100 mg oral tablet) 1 tab(s) Oral (given by mouth) At bedtime. Medication List: Medications to Continue That Have Not Changed Other Medications cholecalciferol (Vitamin D3 50,000 intl units oral capsule) 1 cap(s) Oral (given by mouth) Every Monday. esomeprazole (esomeprazole 20 mg oral delayed release capsule) 1 cap(s) Oral (given by mouth) every day. insulin lispro (HumaLOG) Subcutaneous (under the skin). levothyroxine (levothyroxine 25 mcg (0.025 mg) oral tablet) 1 tab(s) Oral (given by mouth) every day. losartan (losartan 25 mg oral tablet) 1 tab(s) Oral (given by mouth) every day. lovastatin (lovastatin 40 mg oral tablet) 1 tab(s) Oral (given by mouth) every day. meclizine (meclizine 25 mg oral tablet) 1 tab(s) Oral (given by mouth) 3 times a day (scheduled) as needed for dizziness. metoprolol (metoprolol tartrate) 1 tab(s) Oral (given by mouth) 2 times a day (scheduled). ondansetron (ondansetron 8 mg oral tablet) 1 tab(s) Oral (given by mouth) as needed Nausea. rivaroxaban (Xarelto 20 mg oral tablet) 1 tab(s) Oral (given by mouth) once a day (in the evening). semaglutide (Ozempic 2 mg/1.5 mL (0.25 mg or 0.5 mg dose) subcutaneous solution) 0.25 Milligram Subcutaneous (under the skin) Every Monday. rotate injection sites. sertraline (sertraline 100 mg oral tablet) 1 tab(s) Oral (given by mouth) At bedtime. Medications to Continue That Have Not Changed Other Medications cholecalciferol (Vitamin D3 50,000 intl units oral capsule) 1 cap(s) Oral (given by mouth) Every Monday. esomeprazole (esomeprazole 20 mg oral delayed release capsule) 1 cap(s) Oral (given by mouth) every day. insulin lispro (HumaLOG) Subcutaneous (under the skin). levothyroxine (levothyroxine 25 mcg (0.025 mg) oral tablet) 1 tab(s) Oral (given by mouth) every day. losartan (losartan 25 mg oral tablet) 1 tab(s) Oral (given by mouth) every day. lovastatin (lovastatin 40 mg oral tablet) 1 tab(s) Oral (given by mouth) every day. meclizine (meclizine 25 mg oral tablet) 1 tab(s) Oral (given by mouth) 3 times a day (scheduled) as needed for dizziness. metoprolol (metoprolol tartrate) 1 tab(s) Oral (given by mouth) 2 times a day (scheduled). ondansetron (ondansetron 8 mg oral tablet) 1 tab(s) Oral (given by mouth) as needed Nausea. rivaroxaban (Xarelto 20 mg oral tablet) 1 tab(s) Oral (given by mouth) once a day (in the evening). semaglutide (Ozempic 2 mg/1.5 mL (0.25 mg or 0.5 mg dose) subcutaneous solution) 0.25 Milligram Subcutaneous (under the skin) Every Monday. rotate injection sites. sertraline (sertraline 100 mg oral tablet) 1 tab(s) Oral (given by mouth) At bedtime. Medications to Continue That Have Not Changed Other Medications cholecalciferol (Vitamin D3 50,000 intl units oral capsule) 1 cap(s) Oral (given by mouth) Every Monday. esomeprazole (esomeprazole 20 mg oral delayed release capsule) 1 cap(s) Oral (given by mouth) every day. insulin lispro (more content not included)... [facility] 10-30-2023 Note Procedure: Release o f trigger finger right index Pre Op Diagnosis: Trigger finger right index Post Op Diagnosis: Same Surgeon: Dr. Shayan Stone DO Anesthesia: Local/MAC Indication for Surgery: Painful triggering with failure of conservative treatment Findings: Stenotic A1 marcos with triggering Blood Loss: Scant Specimen: None Procedure Summary: The patient was positioned supine. The upper extremity was sterilely prepped and draped in usual fashion and a timeout was taken in the operating room. The hand was exsanguinated and a tourniquet was inflated to 250 mmHg. Infiltrated the incision site with 1% lidocaine with epinephrine. After administration of anesthesia transverse incision was made over the A1 marcos. Blunt dissection was carried down towards A1 marcos. The neurovascular structures were protected with Ragnell retractors. An incision was made over the A1 marcos with a 15 blade. The release was completed proximally and distally with a pair of tenotomy scissors. I then took the finger through range of motion and ensured that there was no residual triggering. The tendons were gliding freely. The wound was then irrigated and the skin was closed with nylon suture. Sterile dressings were applied along with an Donald bandage. Complications: None [Electronically Signed on: 10/30/2023 12:12 EDT] Paris Stone DO [Verified on: 10/30/2023 12:12 EDT] Paris Stone DO [facility] Evaluation note Diagnosis Class 2 severe obesity due to excess calories with serious comorbidity and body mass index (BMI) of 35.0 to 35.9 in adult ([facility])- Primary Type 2 diabetes with nephropathy ([facility]) Type 2 diabetes mellitus with stage 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ney disease, without long-term current use of insulin (HCC) ([facility]) Type 2 diabetes mellitus without complication, with long-term current use of insulin ([facility]) Type 2 diabetes mellitus with stage 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ney disease, without long-term current use of insulin (HCC) ([facility]) Type 2 diabetes mellitus with stage 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ney disease, without long-term current use of insulin (HCC) ([facility]) Type II or unspecified type diabetes mellitus with neurological manifestations, not stated as uncontrolled(250.60) ([facility])- Primary Type II or unspecified type diabetes mellitus with neurological manifestations, not stated as uncontrolled Onychomycosis Dermatophytosis of nail Ingrown nail Ingrowing nail Hammer toes of both feet documented in this encounter [facility] note* Diagnosis Type 2 diabetes mellitus with stage 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ney disease, without long-term current use of insulin ([facility]) ([facility]) documented in this encounter [facility] note* Diagnosis Stage 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ney disease (CKD) ([facility])- Primary documented in this encounter [facility]* Diagnosis Class 2 severe obesity due to excess calories with serious comorbidity and body mass index (BMI) of 35.0 to 35.9 in adult ([facility])- Primary Type 2 diabetes with nephropathy ([facility]) Type 2 diabetes mellitus with stage 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ney disease, without long-term current use of insulin ([facility]) ([facility]) Type 2 diabetes mellitus without complication, with long-term current use of insulin ([facility]) Type 2 diabetes mellitus with stage 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ney disease, without long-term current use of insulin ([facility]) ([facility]) Type 2 diabetes mellitus with stage 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ney disease, without long-term current use of insulin ([facility]) ([facility]) Type II or unspecified type diabetes mellitus with neurological manifestations, not stated as uncontrolled(250.60) ([facility])- Primary Type II or unspecified type diabetes mellitus with neurological manifestations, not stated as uncontrolled Onychomycosis Dermatophytosis of nail documented in this encounter [facility] HealthcareEvaluation note* Diagnosis Persistent atrial fibrillation ([facility])- Primary Atrial fibrillation Presence of cardiac pacemaker Cardiac pacemaker in situ Primary hypertension Unspecified essential hypertension Chronic heart failure with preserved ejection fraction ([facility]) Preop cardiovascular exam Pre-operative cardiovascular examination documented in this encounter [facility]* Diagnosis Presence of cardiac pacemaker- [employer]- Primary Cardiac pacemaker in situ [facility] filedocumented in this [facility] filedocumented [facility] filedocumented in this encounter [facility] Summary Purpose Family History No Family History Records FoundNo Family History Records FoundNo Family History Records FoundNo Family History Records FoundNo Family History Records FoundNo Family History Records FoundNo Family History Records Found Advance Directives Date Activated Date Inactivated Comments 06/02/2022 2:31 AM 06/02/2022 3:49 PM Date Activated Date Inactivated Comments 05/21/2020 2:16 PM 05/22/2020 3:07 PM Date Activated Date Inactivated Comments 10/18/2017 12:17 PM 10/21/2017 2:47 PM Date Activated Date Inactivated Comments 06/02/2022 2:31 AM 06/02/2022 3:49 PM Date Activated Date Inactivated Comments 05/21/2020 2:16 PM 05/22/2020 3:07 PM Date Activated Date Inactivated Comments 10/18/2017 12:17 PM 10/21/2017 2:47 PM Additional Source Comments INFORMATION SOURCE (unrecogn ized section and content) DATE CREATED AUTHOR 07/27/2018 [facility] DATE CREATED AUTHOR AUTHOR'S ORGANIZ ATION [facility]/12/2022 [facility] DATE CREATED AUTHOR AUTHOR'S ORGANIZ ATION 12/23/2023 [facility] DATE CREATED AUTHOR AUTHOR'S ORGANIZ ATION 01/04/2024 [facility] DATE CREATED AUTHOR AUTHOR'S ORGANIZ ATION 02/08/2024 [facility] DATE CREATED AUTHOR AUTHOR'S ORGANIZ ATION 08/18/2024 [facility] EPIC DATE CREATED AUTHOR AUTHOR'S ORGANIZ ATION 08/30/2024 [facility] Care Teams (unrecognized sec tion and content) Quality Control Microbiologist Relationship Specialty Start Date End Date Naya Travis MD [id number] [place] [address] PCP - General Pediatrics 12/22/22 Quality Control Microbiologist Relationship Specialty Start Date End Date Naya Travis MD [address] [place] [address] PCP - General Pediatrics 12/22/22 Quality Control Microbiologist Relationship Specialty Start Date End Date Naya Travis MD [address] [place] [address] PCP - General Pediatrics 12/22/22 Quality Control Microbiologist Relationship Specialty Start Date End Date Naya Travis MD [address] [place] [address] PCP - General Family Medicine 09/29/17 Quality Control Microbiologist Relationship Specialty Start Date End Date Anahi Reyes MD [facility] [place] [address] PCP - General Internal Medicine 07/15/24 Quality Control Microbiologist Relationship Specialty Start Date End Date Anahi Reyes MD [facility] [place] [address] PCP - General Internal Medicine 07/15/24 Quality Control Microbiologist Relationship Specialty Start Date End Date Margie Saenz DO [address] [address] PCP - General Family Medicine 08/16/24 Quality Control Microbiologist Relationship Specialty Start Date End Date Anahi Reyes MD [address] [place] [address] PCP - General Internal Medicine 07/15/24 Quality Control Microbiologist Relationship Specialty Start Date End Date Anahi Reyes MD [address] [place] [address] PCP - General Internal Medicine 07/15/24 Quality Control Microbiologist Relationship Specialty Start Date End Date Anahi Reyes MD [address] [place] [address] PCP - General Internal Medicine 07/15/24 Quality Control Microbiologist Relationship Specialty Start Date End Date Naya Travis MD [address] [place] [id number] PCP - General Pediatrics 09/09/24 Reason for Visit (unrecogniz ed section and content) Reason Comments DM Foot Care PCP: Dany LV 03/26, A1C: 6.1, BS: 95 Reason Comments Diabetes Reason Onset Date Comments Med Refill 07/24/2024 Reason Comments DM Foot Care Pt is here today for diabetic foot care, she states sometimes her nails bother her. BS: 91 A1C: 6.1LV Dr. Saenz 03-11-2024SS: 8.5W Reason Comments Pre-op Exam EST PT F/U 6 MS PPM CK ALSO L/S RBP, PREOP [facility] L4-S1 DECOMPRESSION AND FUSION, FORMS SCANNED TO MEDIA, SCHED W/PT Reason Comments Device Check FOR RECORDS PERTAINING TO PATIENTS WHO ARE OR HAVE BEEN ENROLLED IN A CHEMICAL DEPENDENCY/SUBSTANCEABUSE PROGRAM, SOME INFORMATION MAY BE OMITTED. This clinical summary was aggregated from multiple sources. Caution should be exercised in using it in the provision of clinical care. This summary normalizes information from multiple sources, and as a consequence, information in this document may materially change the coding, format and clinical context of patient data. In addition, data may be omitted in some cases. CLINICAL DECISIONS SHOULD BE BASED ON THE PRIMARY CLINICAL RECORDS. [employer] provides no warranty or guarantee of the accuracy or completeness of information in this document.
== END 2024-09-10 08:34 | disposition home or self-care (01) ==
LOC: PST 08:33
PROVIDERS: Visit Provider Orthopaedic Surgery Orthopaedic Surgery of the Spine
DX: Z01.812 Encounter for preprocedural laboratory examination (principal); M48.062 Spinal stenosis, lumbar region with neurogenic claudication
CPT/HCPCS: 36415; 80048; 80076; 85025; 85610; 85730; 86850; 86900; 86901; 87081

== ENCOUNTER 2024-09-20 14:00 | Observation (INO) | payer MEDICARE, MEDICAID, SELFPAY ==
[2024-09-10 09:37] VITALS: BP 146/90; PULSE 60; TEMP 36.3; O2SAT 97; BMI 33.4
[2024-09-10 10:06] LABS: Basophils Percent Auto 0.4 % (0.2-2.0); Eosinophils Absolute Auto 0.1 10^3/uL (0.0-0.7); Eosinophils Percent Auto 1.3 % (0.9-7.0); Hematocrit 37.9 % (36.0-48.0); Immature Granulocytes Abs Auto 0.04 10^3/uL (0.00-0.03); Immature Granulocytes Pct Auto 0.4 % (0.0-0.5); Lymphocytes Absolute Auto 1.6 10^3/uL (1.2-3.8); Lymphocytes Percent Auto 15.3 % (20.5-60.0); Mean Corpuscular HGB Conc 31.7 g/dL (29.9-35.2); Mean Corpuscular Hemoglobin 29.6 pg (26.7-34.0); Mean Corpuscular Volume 93.3 fL (81.0-99.0); Mean Platelet Volume 9.2 fL (9.5-13.5); Monocytes Absolute Auto 0.9 10^3/uL (0.3-0.8); Monocytes Percent Auto 8.6 % (1.7-12.0); Neutrophils Absolute Auto 7.7 10^3/uL (1.4-6.5); Platelet Count 173 10^3/uL (150-450); Red Blood Count 4.06 10^6/uL (4.20-5.40); Red Cell Distribution Width 13.5 % (11.0-15.0); White Blood Count 10.4 10^3/uL (4.0-11.0)
[2024-09-10 10:25] LABS: INR 1.14; Partial Thromboplastin Time 28.4 sec (22.3-36.2); Prothrombin Time 11.9 sec (9.0-11.6)
[2024-09-10 10:28] LABS: Alanine Aminotransferase 23 U/L (14-59); Albumin Globulin Ratio 1.1; Albumin Level 3.5 g/dL (3.4-5.0); Alkaline Phosphatase 65 U/L (46-116); Anion Gap 11.2; Aspartate Amino Transferase 13 U/L (15-37); BUN Creatinine Ratio 16.1; Bilirubin Direct 0.1 mg/dL (0.0-0.2); Bilirubin Total 0.5 mg/dL (0.2-1.0); Calcium 9.2 mg/dL (8.5-10.1); Carbon Dioxide 27.3 mmol/L (21.0-32.0); Chloride 103 mmol/L (98-107); Estimated GFR (African America 30 (>=60 mL/min/1.73m^2); Estimated GFR (Non-African Ame 24 (>=60 mL/min/1.73m^2); Globulin 3.1 g/dL; Glucose 117 mg/dL (74-106); Potassium 4.5 mmol/L (3.5-5.1); Sodium 137 mmol/L (136-145); Total Protein 6.6 g/dL (6.4-8.2)
[2024-09-20] VITALS (19 sets, daily range): BP systolic 80–146; BP diastolic 50–81; PULSE 59–69; TEMP 35.8–37.1; O2SAT 92–98; BMI 34.2; BMI 14.7
--- NOTE | 2024-09-20 | XR_ITS ---
[place] [id number] Patient Name: ELI GRIMM MRN: [id number] date: 1950 Sex: F Assigned Patient Location: [facility] Current Patient Location: [facility] Accession/Order Number: [id number] Exam Date: 09/20/2024 12:56 Report Date: 09/20/2024 12:57 At the request of: MELODY WADE MD Procedure: XR lumbar spine 2-3V LUMBAR SPINE - one view CLINICAL HISTORY: Intra-op lumbar surgery COMPARISON: None FINDINGS: Intraoperative study was performed. Hardware fixation is seen involving L4-L5 without definitive hardware complication. A drain is seen within the posterior soft tissues. Vertebral body heights appear maintained. XR/XR lumbar spine 2-3V IMPRESSION: INTRAOPERATIVE STUDY. Impression dictated by: Helio Roy Jr., D.O.09/20/2024 12:57 PM Dictation Location: [place] [address] Electronically authenticated by: [id number] Y Date: 09/20/2024 12:57
--- OUTSIDE RECORDS SUMMARY | 2024-09-20 08:16 | XMS_ITS | CCD ---
Author Organization [facility] CliniSymo Care Team Providers Care Cartridge Loader Name Role Phone Alessandra Maddoxary HCameron Admitting [...] Care Unavailable THU, GRISELDA L Attending Unavailable TARVIS, NAYA L Referring Unavailable TRAVIS, NAYA L Primary Care Unavailable THU, GRISELDA L Attending Unavailable TRAVIS, NAYA L Referring Unavailable TRAVIS, NAYA L Primary Care Unavailable THU, GRISELDA L Attending Unavailable TRAVIS, NAYA L Referring Unavailable TRAVIS, NAYA L Primary Care Unavailable THU, GRISELDA L Attending Unavailable TRAVIS, NAYA L Referring Unavailable TRAVIS, NAYA L Primary Care Unavailable Travis Naya CHAPMAN Primary Care Provider [phone] Naya Travis MD Primary Care Provider Eric CHAPMAN [facility] Primary Care Provider [phone] Margie Saenz DO Primary Care Provider [phone] TRAVIS, NAYA L Referring Unavailable TRAVIS, NAYA L Primary Care Unavailable TRAVIS, NAYA L Referring Unavailable TRAVIS, NAYA L Primary Care Unavailable ALEJO BAXTER Attending Unavailable GRISELDA ANDINO Referring Unavailable TRAVIS, NAYA L Primary Care Unavailable TRAVIS, NAYA L Referring Unavailable TRAVIS, NAYA L Primary Care Unavailable NIENBERGALTHEA Attending Unavailable TRAVIS, NAYA L Referring Unavailable TRAVIS, NAYA L Primary Care Unavailable NIENBERG, ALTHEA Croft Attending Unavailable NIENBERG, ALTHEA S Referring Unavailable TRAVIS, NAYA L Primary Care Unavailable NIENBERG, ALTHEA Croft Attending Unavailable TRAVIS, NAYA L Referring Unavailable TRAVIS, NAYA L Primary Care Unavailable GONSALO, ALIZA Referring Unavailable TRAVIS, NAYA L Primary Care Unavailable GONSALO, ALIZA Referring Unavailable ERIC, ANAHI Primary Care Unavailable KELLY, BAUDILIO L Referring Unavailable ERIC, ANAHI Primary Care Unavailable BAUDILIO MENDOZA Referring Unavailable ERIC, ANAHI Primary Care Unavailable TRAVIS, NAYA L Referring Unavailable ERIC, ANAHI Primary Care Unavailable JOE ROBERTO Attending Unavailable TRAVIS, NAYA L Referring Unavailable ERIC, ANAHI Primary Care Unavailable Travis Naya CHAPMAN Primary Care Provider TANISHA MOLINA Attending Unavailable MARGIE SAENZ Attending Unavailable PARIS STONE Attending Unavailable TANISHA MOLINA Attending Unavailable PARIS STONE Attending Unavailable STAN SCHWAB Attending Unavailable STAN SCHWAB Referring Unavailable STAN SCHWAB Attending Unavailable STAN SCHWAB Referring Unavailable ALFREDITO MADDOX Attending Unavailable TRAVIS, NAYA Referring Unavailable TANISHA MOLINA Attending Unavailable MARGIE SAENZ Attending Unavailable TRAVIS, NAYA Referring Unavailable TANISHA MOLINA Attending Unavailable Allergies Allergy Classification Reported Allergen(s) Allergy Type Date of Onset Reaction(s) Facility (1 source) Azithromycin; Translations: [Zithromax] Drug Allergy [facility] Repository (18 sources) Cortisone; Translations: [cortisone] Drug Allergy 02-01-20 14 Tachycardia [facility] Repository (1 source) levoFLOXacin; Translations: [Levaquin] Drug Allergy [facility] Repository (1 source) Sulfamethoxazole / Trimethoprim; Translations: [Bactrim DS] Drug Allergy [facility] Repository (17 sources) atorvastatin; Translations: [ATORVASTATIN] Drug Allergy 02-01-20 14 Other (See Comments) [facility] Repository (17 sources) Azithromycin; Translations: [AZITHROMYCIN] Drug Allergy 02-01-20 14 Nausea And Vomiting, Rash, Vomiting [facility] Repository (10 sources) dabigatran etexilate; Translations: [DABIGATRAN ETEXILATE] Drug Allergy 02-01-20 14 Nausea [facility] Repository (10 sources) Hydrocortisone; Translations: [HYDROCORTISONE] Drug Allergy 02-01-20 14 [facility] Repository (17 sources) levoFLOXacin; Translations: [LEVOFLOXACIN] Drug Allergy 11-17-19 17 Dizziness [facility] Repository (18 sources) rosuvastatin; Translations: [ROSUVASTATIN] Drug Allergy 01-31-20 19 Itching, Rash [facility] Repository (17 sources) Sulfamethoxazole / Trimethoprim; Translations: [SULFAMETHOXAZOLE-TRIM ETHOPRIM] Drug Allergy 04-01-20 14 Vomiting [facility] Repository (17 sources) ERYTHROMYCIN BASE; Translations: [ERYTHROMYCIN BASE] Propensity [...] [facility] (7 sources) HYDROcodone Drug Allergy 04-29-20 21 [facility] (7 sources) Lisinopril Allergy to substance 11-16-19 24 [facility] (7 sources) metroNIDAZOLE Drug Allergy 12-23-19 23 [facility] (7 sources) moxifloxacin Drug Allergy 11-16-19 [facility] (7 sources) Nitrofurantoin Drug Allergy 11-16-19 24 Unknown [facility] (7 sources) Simvastatin Allergy to substance 11-16-19 [facility] (7 sources) venlafaxine Drug Allergy 11-16-19 [facility] (7 sources) Amoxicillin-Pot Clavulanate Drug Allergy 11-16-19 [facility] Work Phone: Medications Current Medications [...] esomeprazole 20 mg delayed release oral capsule (14 sources) Proton Pump Inhibitor Start: 07-19-2023 take 1 capsule by mouth once daily esomeprazole (NexIUM) [address] capsule Take 20 mg by mouth Daily 07/19/2023 Active Start: 07-13-2022 take 1 capsule by mo uth in the morning esomeprazole (NexIUM) 40 mg capsule Take 1 capsule (40 mg total) by mouth in the morning. 07/13/2022 Active estradiol 0.1 mg/ml vaginal cream (7 sources) Estrogen Start: 12-12-2023 estradioL (EST RACE) 0.01 % (0.1 mg/gram) vaginal cream Insert 1 g into the vagina in the morning. 42.5 g 3 12/12/2023 Active furosemide 40 mg oral tablet (14 sources) Loop Diuretic Start: 04-10-2024 furosemide (LA SIX) 40 mg tablet Take 1 tablet (40 mg total) by mouth as needed (edema). 90 tablet 1 04/10/2024 Active 3 ml insulin lispro 100 unt/ml pen injector (14 sources) Insulin Analog Start: 10-12-2023 insulin lispro (HumaLOG KWIKPEN) 100 UNIT/ML injection Indications: Type 2 diabetes mellitus with stage 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ney disease, without long-term current use of insulin (HCC) (CMS/HCC) INJECT SUBCUTANEOUSLY PER SLIDING SCALE DIRECTED 1:30 > 150 MG/DL ( max 30 units a day) for 30 days 15 mL 3 10/12/2023 Active insulin lispro ( HumaLOG) 100 unit/mL injection Inject under the skin. Sliding scale Active levothyroxine sodium 0.025 mg oral tablet (14 sources) l-Thyroxine take 1 tablet by mouth in the evening levothyroxine (SYNTHROID, LEVOTHROID) 25 MCG tablet Take 1 tablet (25 mcg total) by mouth in the evening. Active losartan potassium 25 mg oral tablet (7 sources) Angiotensin 2 Receptor Lacie Start: 08-03-19 24 take 1 tablet by mouth once daily losartan (Cozaar) 25 MG tablet Take 25 mg by mouth Daily 08/03/2023 Active lovastatin 40 mg oral tablet (14 sources) HMG-CoA Reductase Inhibitor Start: 08-10-19 23 take 2 tablets by mouth once daily lovastatin (MEVACOR) 40 mg tablet Take 2 tablets (80 mg total) by mouth nightly. 180 tablet 1 05/09/2023 Active meclizine hydrochloride 25 mg oral tablet (14 sources) Antiemetic take 1 tablet by mouth three times daily as needed for dizziness meclizine (ANTIVERT) 25 mg tablet Take 1 tablet (25 mg total) by mouth 3 (three) times a day as needed for dizziness. Active metoprolol tartrate 25 mg oral tablet (14 sources) beta-Adrenergic Lacie Start: 12-04-19 24 take [...] hours. Active nystatin 100 unt/mg topical powder (9 sources) Polyene Antifungal Start: 11-20-2023 End: 07-18-2024 nystatin (MYCOSTATIN) powder Apply 1 Application topically in the morning and 1 Application at noon and 1 Application in the evening and 1 Application before bedtime. 15 g 11/20/2023 Active ondansetron 8 mg disintegrating oral tablet (14 sources) Serotonin-3 Receptor Antagonist Start: 2022 take 1 tablet by mouth twice daily as needed ondansetron ODT (ZOFRAN ODT) 8 mg disintegrating tablet DISSOLVE 1 TABLET IN MOUTH TWICE DAILY NEEDED 2022 Active rivaroxaban 15 mg oral tablet (15 sources) Factor Xa Inhibitor Start: 02-22-2022 End: 07-24-2024 take 1 tablet by mouth in the morning rivaroxaban (XARELTO) 15 mg tablet Take 1 tablet (15 mg total) by mouth in the morning. 90 tablet 1 07/24/2024 Active 0.25 mg, 0.5 mg dose 1.5 ml semaglutide 1.34 mg/ml pen injector (7 sources) semaglutide (OZEMPIC) 0.25 mg or 0.5 [...] without long-term current use of insulin (HCC) (CMS/HCC) Inject 2 mg under the skin every 7 (seven) days 9 mL 3 09/09/2024 09/09/2025 Active Start: 03-11-2024 End: 03-11-2025 Semaglutide, 2 MG/DOSE, (Oze mpic, 2 MG/DOSE,) 8 MG/3ML solution pen-injector Indications: Type 2 diabetes mellitus with stage 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ney disease, without long-term current use of insulin (HCC) (CMS/HCC) Inject 1 mg under the skin every 7 (seven) days 9 mL 3 03/11/2024 03/11/2025 Active Start: 09-08-2023 End: 03-11-2024 Semaglutide, 2 MG/DOSE, (Oze mpic, 2 MG/DOSE,) 8 MG/3ML solution pen-injector Indications: Type 2 diabetes mellitus with stage 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ney disease, without long-term current use of insulin (HCC) ([facility]) Inject 2 mg under the skin every 7 (seven) days 9 mL 3 09/08/2023 03/11/2024 Discontinued (Dose adjustment) sertraline 25 mg oral tablet (14 sources) Serotonin Reuptake Inhibitor Start: 10-06-2022 take 4 tablets by mouth in the morning sertraline (ZOLOFT) 25 mg tablet Take 4 tablets (100 mg total) by mouth in the morning. 10/06/2022 Active Start: 10-06-2022 take 6 tablets by mo ut in the morning sertraline (ZOLOFT) 25 mg [...] Start: 12-05-2022 take 1 capsule by mo [facility] every week cholecalciferol (Vitamin D-3) 1.25 MG (80810 UT) capsule Take 1 capsule by mouth [...] tablet 11/15/2023 03/11/2024 Discontinued polyethylene glycol 3350 17283 mg powder for oral solution (2 sources) [...] [Anxiety disorder, unspecified] Onset: 05-02-2017 12-22-2022 Chronic Blindness and vision defects (14 sources) Visual impairment; Translations: [Unspecified visual loss] Onset: 06-14-2022 12-22-2022 Chronic Cardiac dysrhythmias (20 sources) Paroxysmal atrial fibrillation; Translations: [Paroxysmal atrial fibrillation] Onset: 10-05-2016 Resolved: 08-28-2024 12-22-2022 Chronic Chronic kidney disease (8 sources) Chronic kidney disease stage 3; Translations: [CKD (chronic kidney disease) stage 3, GFR 30-59 ml/min ([facility])] Onset: 11-14-2023 11-14-2023 Chronic Chronic kidney disease (1 source) Chronic kidney disease; Translations: [Chronic kidney disease, stage 3b] Onset: 07-15-2024 Conduction disorders (18 sources) Cardiac pacemaker in situ; Translations: [Presence of cardiac pacemaker] Onset: 06-07-2011 12-22-2022 Chronic Congestive heart failure; nonhypertensive (16 sources) Chronic heart failure co-occurrent with normal ejection fraction; Translations: [Chronic diastolic (congestive) heart failure] Onset: 06-28-2023 11-14-2023 Chronic Diabetes mellitus with complications (20 sources) Type 2 diabetes mellitus; Translations: [Type 2 diabetes mellitus with diabetic chronic kidney disease] Onset: 10-12-2016 Resolved: 12-22-2022 06-19-2023 Chronic Diabetes mellitus without complication (14 sources) Type 2 diabetes mellitus without complication; Translations: [Type 2 diabetes mellitus without complications] Onset: 06-02-2011 Resolved: 06-19-2023 06-19-2023 Chronic Disorders of lipid metabolism (15 sources) Hyperlipidemia; Translations: [Hyperlipidemia, unspecified] Onset: 06-14-2022 11-14-2023 Chronic Diverticulosis and diverticulitis (7 sources) Diverticulosis of colon; Translations: [Diverticulosis of large intestine without perforation or abscess without bleeding] Onset: 11-14-2023 11-14-2023 Chronic Esophageal disorders (20 sources) Gastroesophageal reflux disease; Translations: [Gastro-esophageal reflux disease without esophagitis] Onset: 06-14-2022 12-22-2022 Chronic Essential hypertension (16 sources) Hypertensive disorder; Translations: [Essential (primary) hypertension] Onset: 06-02-2011 12-22-2022 Chronic Genitourinary symptoms and ill-defined conditions (1 source) Dysuria; Translations: [Dysuria] Onset: 01-02-2024 Episodic Headache; including migraine (14 sources) Migraine; Translations: [Migraine, unspecified, not intractable, without status migrainosus] Onset: 06-14-2022 12-22-2022 Chronic Heart valve disorders (20 sources) Mitral valve regurgitation; Translations: [Nonrheumatic mitral (valve) insufficiency] Onset: 09-02-2020 12-22-2022 Chronic Inflammatory diseases of female pelvic organs (2 sources) Acute vaginitis; Translations: [Acute vaginitis] Onset: 11-20-2023 Episodic Mood disorders (7 sources) Depressive disorder; Translations: [Depression] Onset: 06-02-2018 [...] Other hereditary and degenerative nervous system conditions (14 sources) Restless legs; Translations: [Restless legs syndrome] Onset: 05-02-2017 11-14-2023 Chronic Other nervous system disorders (14 sources) Carpal tunnel syndrome; Translations: [Carpal tunnel syndrome, unspecified upper limb] Onset: 06-14-2022 12-22-2022 Chronic Other nervous system disorders (7 sources) Difficulty walking; Translations: [Difficulty in walking, not elsewhere classified] Onset: 05-14-2019 12-22-2022 Chronic Other nervous system disorders (7 sources) Chronic pain; Translations: [Other chronic pain] Onset: 09-12-2017 12-22-2022 Chronic Other nervous system disorders (7 sources) Polyneuropathy; Translations: [Polyneuropathy, unspecified] Onset: 05-02-2017 12-22-2022 Chronic Other nervous system disorders (7 [...] nutritional; endocrine; and metabolic disorders (7 sources) Severe obesity; Translations: [Morbid (severe) obesity due to excess calories] Onset: 03-15-2018 03-15-2018 Chronic Other skin disorders (1 source) Ingrowing nail; Translations: [Ingrowing nail] 05-02-2024 Episodic Other upper respiratory disease (14 sources) Seasonal allergy; Translations: [Other seasonal allergic rhinitis] Onset: 06-14-2022 12-22-2022 Chronic Other upper respiratory infections (7 sources) Sinusitis; Translations: [Chronic sinusitis, unspecified] Onset: 06-14-2022 06-14-2022 Chronic Other upper respiratory infections (4 sources) Acute pansinusitis, unspecified; Translations: [ACUTE PANSINUSITIS UNSPECIFIED] Onset: 07-06-2022 Episodic Pulmonary heart disease (7 sources) Secondary pulmonary hypertension; Translations: [Secondary pulmonary hypertension] Onset: 03-18-2015 05-03-2017 Chronic Residual codes; unclassified (14 sources) Hypoxia; Translations: [Idiopathic sleep related nonobstructive alveolar hypoventilation] Onset: 10-05-2016 12-22-2022 Chronic Residual codes; unclassified (7 sources) Sleep apnea; Translations: [Sleep apnea, unspecified] Onset: 10-05-2016 11-14-2023 Chronic Residual codes; unclassified (7 sources) Obstructive sleep apnea syndrome; Translations: [Obstructive sleep apnea (adult) (pediatric)] Onset: 10-05-2016 10-05-2016 Chronic Spondylosis; intervertebral disc disorders; other back problems (20 sources) Bilateral inflammation of sacroiliac joint; Translations: [Sacroiliitis, not elsewhere classified] Onset: 09-12-2017 12-22-2022 Chronic Thyroid disorders (15 sources) Hypothyroidism; Translations: [Hypothyroidism, unspecified] Onset: 10-05-2016 [...] Classification Problem Date Documented Da te Episodic/Chronic Asthma (20 sources) Asthma; Translations: [Unspecified asthma, uncomplicated] Onset: 10-05-2016 Resolved: 11-10-2022 11-14-2023 Chronic Cardiac dysrhythmias (20 sources) Bradycardia; Translations: [Bradycardia, unspecified] Onset: 2016 Resolved: 08-28-2024 12-22-2022 Episodic Conditions associated with dizziness or vertigo (20 sources) Peripheral vertigo; Translations: [Other peripheral vertigo, unspecified ear] Onset: 12-26-2018 12-22-2022 Episodic Deficiency and other anemia (7 sources) Anemia; Translations: [Anemia, unspecified] Onset: 11-14-2023 11-14-2023 Episodic Gastrointestinal hemorrhage (14 sources) Rectal hemorrhage; Translations: [Hemorrhage of anus and rectum] Onset: 08-30-2018 12-22-2022 Episodic Headache; including migraine (7 sources) Headache; Translations: [Head pain cephalgia] Onset: 11-14-2023 11-14-2023 Episodic Malaise and fatigue (7 sources) Fatigue; Translations: [Other fatigue] Onset: 11-14-2023 11-14-2023 Episodic Mood disorders (7 sources) Mood disorders Onset: 06-01-2022 06-01-2022 Nutritional deficiencies (7 sources) Vitamin B deficiency; Translations: [Vitamin B deficiency, unspecified] Onset: 11-14-2023 11-14-2023 Episodic Other aftercare (7 sources) Long-term current use of insulin; 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] Onset: 02-28-2021 Resolved: 12-22-2022 12-22-2022 Episodic Other and unspecified benign neoplasm (14 sources) Adenomatous polyp of colon ; Translations: [Benign neoplasm of descending colon] Onset: 09-11-2018 12-22-2022 Episodic Other and unspecified benign neoplasm (14 sources) Adenomatous polyp of rectum; Translations: [Benign neoplasm of rectum] Onset: 09-11-2018 12-22-2022 Episodic Other and unspecified benign neoplasm (14 sources) History of adenomatous polyp of colon; Translations: [History of adenomatous polyp of colon] Onset: 08-30-2018 12-22-2022 Episodic Other connective tissue disease (7 sources) Neurogenic pain; Translations: [Neuralgia and neuritis, unspecified] Onset: 05-02-2017 12-22-2022 Episodic Other connective tissue disease (14 sources) Rotator cuff arthropathy of left shoulder; Translations: [Unspecified rotator cuff tear or rupture of left shoulder, not specified as traumatic] Onset: 04-25-2017 12-22-2022 Episodic Other connective tissue disease (14 sources) Bilateral trochanteric bursitis; Translations: [Trochanteric bursitis, right hip] Onset: 04-13-2021 12-22-2022 Episodic Other diseases of kidney and ureters (7 sources) Abnormal renal function; Translations: [Disorder of kidney and ureter, unspecified] Onset: 11-14-2023 11-14-2023 Episodic Other ear and sense organ disorders (7 sources) Tinnitus of left ear; Translations: [Tinnitus, left ear] Onset: 04-04-2018 12-22-2022 Episodic Other gastrointestinal disorders (14 sources) Altered bowel function; Translations: [Change in bowel habit] Onset: 08-30-2018 12-22-2022 Episodic Other inflammatory condition of skin (2 sources) Pruritus vulvae; Translations: [Pruritus vulvae] Onset: 01-29-2024 Episodic Other injuries and conditions due to external causes (14 sources) Fracture of bone; Translations: [Unspecified multiple injuries, initial encounter] Onset: 06-14-2022 12-22-2022 Episodic Other non-traumatic joint disorders (5 sources) [...] nutritional; endocrine; and metabolic disorders (7 sources) Body mass index 40+ - severely obese; Translations: [Body mass index (BMI) 40.0-44.9, adult] Onset: 09-27-2017 Resolved: 09-06-2018 09-06-2018 Chronic Other upper respiratory disease (7 sources) Hoarse; Translations: [Dysphonia] Onset: 11-16-2023 11-16-2023 Episodic Serina-; endo-; and myocarditis; cardiomyopathy (except that caused by tuberculosis or sexually transmitted disease) (14 sources) Acute idiopathic pericarditis; Translations: [Acute nonspecific idiopathic pericarditis] Onset: 06-07-2011 12-22-2022 Episodic Residual codes; unclassified (7 sources) Amnesia; Translations: [Other amnesia] Onset: 04-02-2020 12-22-2022 Episodic Spondylosis; intervertebral disc disorders; other back problems (20 sources) Acute thoracic back pain; Translations: [Pain in thoracic spine] Onset: 06-18-2019 12-22-2022 Episodic Unclassified (7 sources) Onset: 09-11-2018 09-11-2018 Varicose veins of lower extremity (14 sources) Varicose veins of lower extremity; Translations: [Asymptomatic varicose veins of unspecified lower extremity] Onset: 06-14-2022 12-22-2022 Episodic Results Test Name Value Interpretation Reference Range Facility Device Interrogationon 08-28 [facility] Radiology Study observation (narrative) [facility] POCT EKGOrdered By: Ashwini Fitzpatrick on 08-28-2024 [facility] PROTEIN CREAT RATIOon 2024 RANDOM URINE PROTEIN 90 mg/L Normal <120 [facility] Comment on above: Performed By: #### T MIKE, 90790-9 #### [facility] ([id number]) [address], [address] [place] [address] U/PRO/REVERBERATORY FURNACE SUPERVISOR RATIO CALC 0.16 Normal <0.2 [facility] Comment on above: Result Comment: Neph rotic Syndrome is associated with ratios >3.5 Performed By: #### T MIKE, 47332-6 #### [facility] ([id number]) [address], [address] [place] [address] URINE CREATININE,RDM 56.26 mg/dL Normal [facility] Comment on above: Performed By: #### T MIKE, 49587-0 #### [facility] ([id number]) [address], [address] [place] [address] URINALYSISon 07-16-2024 Bilirubin Ql (U) Negative Normal NEG [facility] Comment on above: Performed By: #### T MIKE, 25893-2 #### [facility] ([id number]) [address], [address] [place] [address] BLOOD/HGB Negative Normal NEG [facility] Comment on above: Performed By: #### T MIKE, 50625-1 #### [facility] ([id number]) [address], [address] [place] [address] Color (U) YELLOW Normal YELLOW [facility] Comment on above: Performed By: #### T MIKE, 72291-5 #### [facility] ([id number]) [address], [address] [place] [address] Glucose Ql (U) Negative Normal NEG [facility] Comment on above: Performed By: #### T MIKE, 38218-6 #### [facility] ([id number]) [address], [address] [place] [address] Ketones Ql (U) Negative Normal NEG [facility] Comment on above: Performed By: #### T MIKE, 89069-1 #### [facility] ([id number]) [address], [address] [place] [address] Leukocyte esterase Test strip Ql (U) Negative Normal NEG [facility] Comment on above: Performed By: #### T MIKE, 08083-8 #### [facility] ([id number]) [address], [address] [place] [address] Nitrite Ql (U) Negative Normal NEG [facility] Comment on above: Performed By: #### T MIKE, 63404-5 #### [facility] ([id number]) [address], [address] [place] [address] pH (U) 6.0 [pH] Normal 5.0-8.5 [facility] Comment on above: Performed By: #### T MIKE, 85034-3 #### [facility] ([id number]) [address], [address] [place] [address] Protein Ql (U) Negative Normal NEG [facility] Comment on above: Performed By: #### T MIKE, 16829-3 #### [facility] ([id number]) [address] [place] [address] Specific gravity (U) [Rel density] 1.013 Normal 1.003-1.035 [facility] Comment on above: Performed By: #### T MIKE, 23136-8 #### [facility] ([id number]) [address], [address] [place] [address] TURBIDITY CLEAR Normal CLEAR [facility] Comment on above: Performed By: #### T MIKE, 15880-9 #### [facility] ([id number]) [address], [address] [place] [address] Urobilinogen (U) [Mass/Vol] mg/dL Normal <1.1 [facility] Comment on above: Performed By: #### T [facility], 05981-6 #### [facility] ([id number]) [address], [address] [place] [address] BASIC METABOLIC PANLon 07-15 Anion gap [Moles/Vol] 10 mmol/L Normal 5-15 [facility] Comment on above: Performed By: #### Charlotte SUERO, 7-, 72459-0, 2730-8, BMP #### [facility] ([id number]) [address] [place] [address] Calcium [Mass/Vol] 9.3 mg/dL Normal 8.5-10.5 [facility] Comment on above: Performed By: #### Charlotte SUERO, 2776-, , 2730-8, BMP #### [facility] ([id number]) [address], [address] [place] [address] Chloride [Moles/Vol] 106 mmol/L Normal 98-109 [facility] [facility] Comment on above: Performed By: #### Charlotte SUERO, 2776-, , 2730-8, BMP #### [facility] ([id number]) [address], [address] [place], [place] [address] CO2 [Moles/Vol] 25 mmol/L Normal 22-32 [facility] Comment on above: Performed By: #### Charlotte SUERO, 7-, 30370-8, 2730-8, BMP #### [facility] ([id number]) [address], [address] [place], [place] [address] Creatinine [Mass/Vol] 1.87 mg/dL High 0.40-1.00 [facility] Comment on above: Result Comment: METH OD TRACEABLE TO IDMS STANDARD Performed By: #### C PIO, 2776-07, , 2731-01, BMP #### [facility] ([id number]) [address], [address] [place] [address] GFR/1.73 sq M.predicted among non-blacks MDRD (S/P/Bld) [Vol rate/Area] 28 mL/min/{1.73_m2} Low >59 [facility] Comment on above: Result Comment: Reported eGFR is based on the CKD-EPI 2020 equation that does not use a race coefficient. Performed By: #### Charlotte SUERO, 2776-07, , 2731-01, BMP #### [facility] ([id number]) [address], [address] [place] [address] Glucose [Mass/Vol] 136 mg/dL High 65-99 [facility] Comment on above: Performed By: #### Charlotte SUERO, 2776-07, , 2731-01, BMP #### [facility] ([id number]) [address], [address] [place] [address] Potassium [Moles/Vol] 4.4 mmol/L Normal 3.5-5.0 [facility] Comment on above: Performed By: #### Charlotte SUERO, 2776-07, , 2731-01, BMP #### [facility] ([id number]) [address], [address] [place] [address] Sodium [Moles/Vol] 141 mmol/L Normal 134-146 [facility] Comment on above: Performed By: #### Charlotte SUERO, 2776-07, , 2731-01, BMP #### [facility] ([id number]) [address], [address] [place] [address] Urea nitrogen [Mass/Vol] 37 mg/dL High 5-27 [facility] Comment on above: Performed By: #### Charlotte SUERO, 2776-07, , 2731-01, BMP #### [facility] ([id number]) [address], [address] [place] [address] COMPLETE BLOOD COUNTon 07-15 Erythrocyte distribution width (RBC) [Ratio] 14.1 % Normal 11.5-15.0 [facility] Comment on above: Performed By: #### Charlotte SUERO, 2776-, , 2731-01, BMP #### [facility] ([id number]) [address], [address] [place] [address] Hematocrit (Bld) [Volume fraction] 36.0 % Normal 35-47 [facility] Comment on above: Performed By: #### Charlotte SUERO, 2776-07, , 2731-01, BMP #### [facility] ([id number]) [address], [address] [place] [address] Hemoglobin (Bld) [Mass/Vol] 11.9 g/dL Normal 11.7-15.5 [facility] Comment on above: Performed By: #### Charlotte SUERO, 2776-07, , 2731-01, BMP #### [facility] ([id number]) [address], [address] [place] [address] MCH (RBC) [Entitic mass] 30.7 pg Normal 27-34 [facility] Comment on above: Performed By: #### Charlotte SUERO, 2776-07, , 2731-01, BMP #### [facility] ([id number]) [address], [address] [place] [address] MCHC (RBC) [Mass/Vol] 33.2 g/dL Normal 32-36 [facility] Comment on above: Performed By: #### Charlotte SUERO, 2776-07, , 2731-01, BMP #### [facility] ([id number]) [address], [address] [place] [address] MCV (RBC) [Entitic vol] 93 fL Normal 80-100 [facility] Comment on above: Performed By: #### Charlotte SUERO, 2776-, , 2731-01, BMP #### [facility] ([id number]) [address], [facility] [address] [place] [address] Platelet mean volume (Bld) [Entitic vol] 8.0 fL Normal 7-12 [facility] Comment on above: Performed By: #### Charlotte SUERO, 2776-, , 2731-01, BMP #### [facility] ([id number]) [address], [facility] [address] [place] [address] Platelets (Bld) [#/Vol] 185 10*3/uL Normal 150-450 [facility] Comment on above: Performed By: #### Charlotte SUERO, 2776-07, , 2731-01, BMP #### [facility] ([id number]) [address], [facility] [address] [place] [address] RBC COUNT 3.88 X10E12/L Normal 3.80-5.20 [facility] Comment on above: Performed By: #### Charlotte SUERO, 2776-07, , 2731-01, BMP #### [facility] ([id number]) [address], [facility] [address] [place] [address] WBC (Bld) [#/Vol] 7.9 10*3/uL Normal 4.0-11.0 [facility] Comment on above: Performed By: #### Charlotte SUERO, 2776-07, , 2731-01, BMP #### [facility] ([id number]) [address], [facility] [address] [place] [address] MAGNESIUMon 07-15-2024 Magnesium [Mass/Vol] 1.8 mg/dL Normal 1.8-2.6 [facility] Comment on above: Performed By: #### C BC, 2777-1, 43723-6, 1-8, BMP #### [facility] ([id number]) [address], [address] [place] [address] PHOSPHORUSon 07-15-2024 Phosphate [Mass/Vol] 2.7 mg/dL Normal 2.4-4.9 [facility] Comment on above: Performed By: #### C BC, 2777-1, 97918-1, 2730-8, BMP #### [facility] ([id number]) [address], [address] [place] [address] Parathyrin.intact [Mass/Vol] on 07-15-2024 PTH INTACT 84 pg/mL Normal 12-88 [facility] Comment on above: Performed By: #### [facility], [address]-6 #### [facility] ([id number]) [address] [place] [address] XR CHEST 2 VWSon 07-15-2024 XR CHEST [...] Burks MD on 07/15/2024 10:31 PM Normal [facility] US RETROPERITONEAL COMPLETEo n 06-22-2024 US RETROPERITONEAL [...] Baxter MD on 06/22/2024 9:12 AM Normal [facility] CT LUMBAR SPINE WO CONTon CT LUMBAR [...] Goodson MD on 04/10/2024 8:25 AM Normal [facility] HbA1c (Bld) [Mass fraction]o n 03-11-2024 Interpretation and review of laboratory results Normal [facility] - Hematology and Cell countson 03-11-2024 HbA1c (Bld) [Mass fraction] 6.1 % [facility] XR CHEST 2 VWSon 03-05-2024 [...] Danisha Britt DO on 03/05/2024 10:39 AM I, Maicol Baxter MD have personally reviewed the image(s) and agree with and/or edited the report Finalized by Maicol Baxter MD on 03/05/2024 2:03 PM Normal [facility] Surgical Pathologyon 024 Surgical Pathology Normal [facility] Comment on above: Result Comment: [facility] [address] [place] [address] Surgical Pathology Consultation Patient Name:HAYLEY GRIMMB:1950 (Age: 73)Gender:FTaken:4Reported:4Physician(s):Griselda Andino M.D. ([phone])Copy To: Rec. #:[id number]: #[id number] Final Pathologic Diagnosis Right vulva, biopsy: Lichen simplex chronicus Comment: Immunostains were performed with adequate controls. Results show the following: p53 and p16 stain in a benign pattern Report Electronically Signed Out nsk/02/02/2024Karin Nielsen MD Interpretation performed at [address] [address], License number: [id number]. Clinical History Chronic vulva vaginal itching. Gross Description Received in formalin labeled Zenia GRIMM vulva is a single taylor-white to taylor-alba unoriented punch biopsy of epithelial-covered soft tissue, 0.3 cm in diameter and excised to a depth of 0.2 cm. The surgical margin is inked teal and the specimen is submitted intact in a single cassette. (1, ns, [id number], m6) MG [facility]/01/30/2024GR Specimen(s) Received Right vulva Fee Codes(s): 1; 62164, 25994, 67999 URINALYSISon 01-02-2024 Bilirubin Ql (U) Negative Normal NEG [facility] Comment on above: Performed By: #### U A #### [facility] ([id number]) [address], [address] [place] [address] BLOOD/HGB Negative Normal NEG [facility] Comment on above: Performed By: #### U A #### [facility] ([id number]) [address], [address] [place] [address] Color (U) YELLOW Normal YELLOW [facility] Comment on above: Performed By: #### U A #### [facility] ([id number]) [address] [place] [address] Glucose Ql (U) Negative Normal NEG [facility] Comment on above: Performed By: #### U A #### [facility] ([id number]) [address], [address] [place] [address] GRANULAR CASTS 4 /lpf High 0 [facility] Comment on above: Performed By: #### U A #### [facility] ([id number]) [address], [address] [place] [address] Hyaline casts LM Ql (Urine sed) 5 /lpf High 0-2 [facility] Comment on above: Performed By: #### U A #### [facility] ([id number]) [address], [address] [place] [address] Ketones Ql (U) Negative Normal NEG [facility] Comment on above: Performed By: #### U A #### [facility] ([id number]) [address], [address] [place] [address] Leukocyte esterase Test strip Ql (U) Negative Normal NEG [facility] Comment on above: Performed By: #### U A #### [facility] ([id number]) [address], [address] [place] [address] MUCOUS PRESENT Abnormal NONE [facility] Comment on above: Performed By: #### U A #### [facility] ([id number]) [address], [address] [place] [address] Nitrite Ql (U) Negative Normal NEG [facility] Comment on above: Performed By: #### U A #### [facility] ([id number]) [address], [address] [place] [address] pH (U) 6.0 [pH] Normal 5.0-8.5 [facility] Comment on above: Performed By: #### U A #### [facility] ([id number]) [address], [address] [place] [address] Protein Ql (U) 30 mg/dL Abnormal NEG [facility] Comment on above: Performed By: #### U A #### [facility] ([id number]) [address] [address] [place] [address] R.B.CELLS <1 Normal 0-5 [facility] Comment on above: Performed By: #### U A #### [facility] ([id number]) [address] [address] [place] [address] Specific gravity (U) [Rel density] 1.020 Normal 1.003-1.035 [facility] Comment on above: Performed By: #### U A #### [facility] ([id number]) [address] [facility] [address] [place] [address] SQUAMOUS EPITHELIUM 13 /hpf High 0-5 [facility] Comment on above: Performed By: #### U A #### [facility] ([id number]) [address] [address] TURBIDITY CLEAR Normal CLEAR [facility] Comment on above: Performed By: #### U A #### [facility] ([id number]) [address] [place] [address] Urobilinogen (U) [Mass/Vol] mg/dL Normal <1.1 [facility] Comment on above: Performed By: #### U A #### [facility] ([id number]) [address] [address] W.B.CELLS 2 /hpf Normal 0-5 [facility] Comment on above: Performed By: #### U A #### [facility] ([id number]) [address] [address] URINE CULTUREon 01-02-2024 Bacteria identified Cx Nom (U) CULTURE RESULTS 10-50,000 ORGANISMS/mL NORMAL UROGENITAL ANKIT Normal [facility] Comment on above: Performed By: #### 6 30-4 #### [facility] ([id number]) [address] [place] [address], [address] [place] [address] VAGINITIS PANEL PCRon 2023 VAGINITIS PANEL PCR [...] clinical presentation to determine patient diagnosis. Normal [facility] Comment on above: Performed By: #### V PPCR #### [facility] ([id number]) [address] [place] [address], [address] [place] [address] POCT Glucose Levelon 024 Glucose, POC see comment Invalid Interpretation Code [id number] [facility] Comment on above: Result Comment: Dupl icate results removed during lab audit (go live with interface) 12/21/2023 11:56:56 EDT SD Performed By: #### 4 [id number] ####[facility] (DEFAULT)[address] [place] [address] VAGINITIS PANEL PCRon 2023 VAGINITIS PANEL PCR [...] clinical presentation to determine patient diagnosis. Normal [facility] Comment on above: Performed By: #### V PPCR #### [facility] ([id number]) [address] [place] [address], [address] [place] [address] HERPES SIMPLEX VIRAL PCRon 0 11-20-2023 HERPES SIMPLEX VIRAL PCR SPECIMEN SOURCE VAGINAL LESION HERPES SIMPLEX 1 PCR Negative (qualifier value) HSV 1 DNA Not Detected HERPES SIMPLEX 2 PCR Negative (qualifier value) HSV 2 DNA Not Detected Normal [facility] Comment on above: Performed By: #### H SV12 #### [facility] ([id number]) [address] [place] [address], [address] [place] [address] VAGINITIS PANEL PCRon 2023 VAGINITIS PANEL PCR [...] clinical presentation to determine patient diagnosis. Normal [facility] Comment on above: Performed By: #### V PPCR #### [facility] ([id number]) [address] [facility] [place] [address] Coding Summaryon 11-02-2023 Coding Summary HTMLBase 64 ZezlmejaKIl7pFa+PGhl YWQ+HV7JYSYuZ87suOEe eO5sA0BVTNmABosxMUNC XRtCNlQfjkPrWH6nyXAq ZXJu IC8+KJ3vOLEmOzlqjLLo j6W8bOI3O36hwb4dZBmm mVS1PQLwYlVyciedo1lb qUg2RYtfAarnVoUu RSLzjO53RUS5rP69Aj32 eJNzkVFgf5kiqMr4WkRo FKNuYWX7yArkCGdae4Xf BOCbJ89xfEWef0L7 IGNvbGxhcHNlOyBlbXB0 rN4pUCyacmicy5ecugdz Vyj7mt64nOTpm8W2tUG7 V8QzemQ0KICcyJIe LqafqBXLaH6xdbhlz5ol loejXjWkYZDaAXw6OYm3 ZISpoFdmCeGcYC99QIN6 ENYmbgIcY1PgKTLz iXbfNoK0m0X2Ml1RL6QN PnbwF4YGJAWZMUfozEU+ VJ10xh44N6LeSxvqHei2 SDAvLLH2nZY2tV8b CJWmMPnwg5Z1cYF5Q4Mj erWlfo1vc4ghZAChDHdj M70exAYxn8W6NKQqgEP8 JENhnHwsOhDtmU83 Oyc+KJPxiUoye1UrRsvz g8drj1addEz2XkusCHWt sfNkkRfpSDY6j7IpJz9z PJIkdEM2aVD5aS0c ItUoMsU5QEpjW598LaVk wSAzNinmG32pV2KjqSN+ MTPdKyp1MSGswXdhTC0r U3CaODVhixarsJQh qEugOY9wHLMqfbnkOVIo xQ8jWMTyG1c8BaAwJxA5 UHqrD7NpKMDnlvkdDk78 eY4hNpPdBdI7KNrn J2FbxnW4SFYogGTkPVdr SGQ6M26zq8I3NUXoSVFo VTZ1rMD9hN8bgYdfflnm bGVmdDsgdmVydGlj PXftRHdzK537OYVrpSom PkNvZGluZyBEYXRlOiAg MDUvMDIvMjAyNDwvdGQ+ YZNgOQR5oVnmFBFp dFRjXFjpKx8svOyfpLzr SW2yRSToxmgnBJEunL5a VTQlxBMkzKbcTX3bLVLk bawcd912XdKzFWF5 SUNsmNKoS1NfdW2nWaOu DXJbTOFqA4BsmIEpGGhb O873ZRdzItX0QNGsudAg O9UyBLMhoNkdHlA9 x8T6Pw9Ia3AqsocmJ6Tq qYTaRjFnSbvvZZc3O2Ws PjwvdHI+KI10XNMhOJ12 GEc0AJM0uUwdVReq QLOyS3CjzN3mJxBkGRVf ZGRkOyc+PHRhYmxlIHdp ZHRoPScxMDAlJyBzdHls IK3fKj9uMMEnRUBx hKtrwPKwEaYes3axAPOs ZWzmZF5oxFwzZ0EcjKN6 EGPvs6u7Gj20I81yV9Ms dXA+CDVkgJI1pLY0 mO0xPiDuSnP3KRmjL890 SxVzyQJhFtxkc5sso9vm wIx0JhM0OKGgydBmeEaz ERV6z4ScYb02R85s IHdpZHRoPSIxNSUiIHZh lSqjtv6quO5kNs1+PGNv wTP3cNS2cH7vOnTtNyT3 JQvwN656HgTrxODt Nhdbw1dji4pdoCn6BbKq HQEvybAjfGxpYOP4t3Ck Tf08I3TlgSxqe4UjLtg7 vl44eGHzp5F0lQL0 M7QgSFLcdflugJEmaJdq BF0hRZOkwsugESVruB1n MXBtT2h1XcEzJdN7IKlx J8UjvbE0KVQseGDx APVnrROTvH2teiymb6xt lnrcYxBfBLIkMXz8GPd9 BVHphTxaJfOzQUA2BnG3 VIF8yUIadH3znLvj mxrmxJ2mNle+QLH4zPBo bAVJRB6pEblmyZQ+PHRk SAV3qThiVFtcZEBcqD1d GNAlF5p2GrKnDzL6 ENvfZ7BzllX2SKOkdQDx IVFwxUTQdG6edgqhe8uw iplzNsXdNAAbZQt6YWa1 LWFsaWduOiBsZWZ0 AiI5EPS9rTUquH8kmTkl gfrfgB8zGjh+QmlydGgg RLB0MFr4I7UfXws1FVUi uKvmON8hgZMwLCnz Qn7ghBaqjRqnUV9kCWMn hqevi593OtXdy5pzALIo tJUcCRpoISF3D09ri9E6 TXQvACKvRFR0hWJ8 eK4uqIjixouqfZRhwOtu wgNzgGsoJDokVQgtH296 OXCfpWesWzUdVUn1I8Gj Wiz9UWVrsEzaUV9v rAElAJnnTh4trVhxjSeb ST2qJBQwoplit987AoWo n6saWGOloSBkCJalJHI0 Z20iw7M9QUVbUDOk AJN4bJP6dT1oqHkrohon bGVmdDsgdmVydGljYWwt LQgeX426RNXdxMwwGrXl xRd7N2IgArv8QLGq cJnnAJ5fxBTsOQwlKk0c aZcibYymKB6dOHQtbnyw m350DxDct5tyWUMhkHOk KHvrJGM2D57nl5Q6 DSAhELWtIIX3bQZ7aM1r bGlnbjogbGVmdDsgdmVy xFfmWTgpAFcjV387YWZd cDsnPlBhdGllbnQg GXamZUr1V1YbVlskiPX+ KW57ALBkQB65lGPuuAEn h8cqcLz4KiCtYAObRDF5 nVkcUNjfz3QpQSUu K30hcNRqc8J4UHCdyOvc cWXiTuFnuYS2kI5nPFch iedwu5rvuymsKbynv9rp yo54sX02O07tWWlk ZHRoPSIzMCUiIHZhbGln fk3sxY8yAr2+PGNvbCB3 mEU9eN3fPCKeHzU9UArc J285HuTdiCWdNsik b4uts0slqPm5GtU6QXKn ulIlwSceUAR0v7HmZy43 R01yMVjpFSPmRGEaSFEt LQGhbNlnol3mdB5t Ii8+NWMziRX3aEE3uD4p HgMsXlJ0CDxcV343JaBo gWHuPugcW70qA4MhqGT+ VMJmJli2LBHrmNod XT1rlJNcLBkvLx7xEPC8 UgWrEvJaYSxpR2GfESLy auegdhfpfXM4WOGbLSLv wE18Ka7xyPvlUPGv aGSWtH7wtepas5iiefmr WfKjHOEeEBn4RMu3FKLt vGgxSjUrYAM1RsS9EZN9 gXNmdA8uiWluikfw sH6cH4ExMMFcwfhtPd06 oF0aHlYrGvE6KCkwIqa+ UkFEVEtFLCBaRUxMQTwv dGQ+VNDeHQK5wYbh OSmoUKIknF2xEMLhI7k4 IyZvDoB8YGexY2QvPBZg gmwuHo34rI0zQtNrVjV4 QRceK7LlkoD7HVYt yNWpPGbgVAQ9D35ci5J3 LBYnZHMxHDL9jTA3bA4r bGlnbjogbGVmdDsgdmVy vKufYScwPIgxM555 TEKniVodBmX5XzIxHhL9 VSe1W0FwEte7PTLauOew NY2rnIPjZTzyXq1bfYsl zFdxKA0vQYBkyboj ZKJzlM5xFMQmpRHoeHhk IA6vGRQpvoomg055CaDi HWH7SDZneRRcI9DgaK9q FsPbUMTeMDYhZ0Cj dPPwXJleX345BTghWpK8 OIWgayYjL4AlUOYozMys PsQ6t3I1Lz96PIZJYZMp czwvdGQ+PHRkIHN0 iHgqWZueMXJxmV4zVHLq M9m5KxOxXoN0OErdB2Uw SHCwfenvXk03rD1qBkOm GsL1QVqtM6HgtbO1 WWTrmVPqYElxWTW1Y65a p4Z3QGAeIVUoXEQ3bBE5 mA1gtIwlcyqpwCRauIxu dmVydGljYWwtYWxp B233YIXmfBceRvFYBMZD RTwvdGQ+CXEhFQE5yLnm QFpuYOZczE2oHFAmW8x6 MgZkRlB2OXtoI6Xp TCXcjzhzHy39fG2vJgPq XcY1OWhzA0ItrlC0VBOb pXEsIZqaPEJ4V61tu6H8 GKEhBJLeFFP1fRT8 jH9ydDfycehdfGAtnMvh gpCrvDehYTfhJOjlQ680 IHRvcDsnPkRheSBTdXJn DXY8BV58ZU51S1Gu PjwvdGFibGU+PHRhYmxl IHdpZHRoPScxMDAlJyBz tAkgAL0cLv6yMGYoMVBb iJvomQSbTzRqq2eh ANBcAPbmFP1kzGzcU5Ho dPF7FBUax1d2Xh72M40u M7YddGD+KPLyzCM4bGK6 lA1tNcEaWgB0FFvl M116MzAzpUUhZxvkf1ev w0raeQg5SiJyCQMrwpBm fEfhFPL2g2EkAk37X95y IHdpZHRoPSIyMCUi IAJuqHscnq3obH9iHf8+ QSBdiTS1tXA9sM8mLaBu LoJ9IHcxG830XrQadTWm JnmsK73eV1KvxFJ+ FZNxWmw2CRIgxZmlIG5k mLHnYPniXi2sMZQ0CzFi DjOnWVcnB2VmIBFazyqn jyvakGN1BBVmHUUb bQ95Cv9cbXaxKa4iSGLm DIN2BKQxiUZdQ0TofJ0m OjEcJOBaOWAbH0OlaQLw ZSitI054XGjpAiY9 ICWadcOmL5QqZCSuuTji HqA2d8W6La9RrCctzREj DN7lVkLnMTt0E7WxOfh0 MFGphFexKO6myUHo NMrjVl5adOffpAzvXU3i QXJtaejwm402WbVvh8ka UPSvnLTrQWwzRYG4M86w f1Y0FIThZZNaZRD6 uBX1xW3veUeberkuyNHs dDsgdmVydGljYWwtYWxp W230UCXiyQcvAvARDzf3 L5QaMio8JBSupRpy MT7eeXAzLQciVb1hfMkw cYauQS2dBDFxypygf175 PbTzj7uuMACdqVBsKEbf XBC7W03rp5Z0WPGb RZSbEBK0qLX7vY7eaBrv bjogbGVmdDsgdmVydGlj VTjtOXmeE994AULxsYur Wp2FXvr6B9AqFxk2 SHCevZvdLR8qzHZwEMbz Yc1bhEecwCbaLD0jNGIr pmdjg778TcWtx7tcGJZa vIBqDJnrGIZ5K11l g0N5XQVjLYJzGHL5aKW3 vZ7bpOioezijqFKquSai kpIpqIsuPWojNMnhY589 IHRvcDsnPlBheWVy OjwvdGQ+AW54rh60U8Ch NniuZna0KLQpOQW5cIZ8 oZ6xQJJwLAlsf0M2eRA0 F9GrsvVhlq5wk3zh YXB (more content not included)... [facility] MAGR Intraoperative Recordon 11-01-2023 MAGR Intraoperative Record MAGR Intra-Op Record Summary Primary Physician: Paris Stone DO Finalized Date/Time: 11/01/23 08:42:32 Pt. Name: DAYANNA GRIMM/Sex: 1950 FEMALE Med Rec #: [id number] Physician: Paris Stone DO Financial #: [id number] Pt. Type: D Room/Bed: / Admit/Disch: 10/30/23 [...] Case Attendee Paris Stone Debra RN Wilkins CST, Betty PARISI Role Performed Surgeon - Primary Critical Care Registered Nurse Privacy Manager Time In 10/30/23 12:00:00 10/30/23 11:53:00 10/30/23 [...] Satya S MD Role Performed Scrub Personnel Critical Care Registered Nurse Anesthesiologist of Record Time In 10/30/23 11:53:00 [...] Primary Procedure Yes Primary Surgeon Paris Stone DO Surgeon Comment Trigger Finger release Start [...] Participants Codi Mcclure DO, Debra RN, Arnaldo BEAD WORKER SEWING, Betty LONG CSFA, Tyler Ashley BEAD WORKER SEWING, Kash Amaya MD Last Modified By: Tereza [...] RN 10/30/23 1 (more content not included)... [facility] Consent Formson 10-31-2023 Consent Forms [id number][facility] on 10-31-2023 Consultation/Special ist Note [id number]#1 .[facility]ructionson Discharge Instructions [id number]#1 .[facility] Implantable Deviceson 2023 Implantable Devices [id number]# [facility] Outside Recordson 10-31-2023 Outside Records [id number]# [facility] 10-30-2023 Anesthesia Note Patient: [...] on: 10/30/2023 12:42 EDT] Kash Amaya MD [facility] Anesthesia Note Patient: DAYANNA GRIMM [...] All Problems Renal dysfunction / SNOMED CT 86360596 / Confirmed Anxiety / SNOMED CT 67651684 / Confirmed Afib / SNOMED CT 22269503 / Confirmed Depression / SNOMED CT 931894037 / Confirmed Diabetes / SNOMED CT 828989491 / Confirmed Acid reflux / SNOMED CT 493339534 / Confirmed HTN (hypertension) / SNOMED CT 9032343316 / Confirmed Hypothyroid / SNOMED CT 83968375 / Confirmed DJD (degenerative joint disease), lumbar / SNOMED CT 308159634 / Confirmed Neuropathy / SNOMED CT 7526523748 / Confirmed Trigger finger / SNOMED CT 809911711 / Confirmed Vertigo / SNOMED CT 6645639059 / Confirmed Resolved: History of sleep apnea / SNOMED CT 300644775 Histories Family History: No family history items have been selected or recorded. Procedure history: History of total hysterectomy (6522773462). History of left total knee replacement (266040743861189). Cholecystectomy (26101865). Appendectomy (033824030). Cardiac pacemaker (59265384). Comments: 10/06/2023 10:29 Amber Gonzalez RN done in 2010 History of total replacement of right hip joint (952611598535993). Hernia (3197385392). Comments: 10/06/2023 10:32 Amber Gonzalez RN as a child, unknown location Trigger fingers of both hands (082085286614838). Comments: 10/06/2023 10:33 Ambre Gonzalez RN various fingers to both hands History of total arthroplasty of left shoulder (0217223455). Ankle (3294618). Comments: 10/06/2023 10:32 Amber Gonzalez RN right [...] Laboratory Results ECG interpretation: V paced. Plan [employer]#(A SA) physical status classification: Class IV. Anesthetic Preoperative Plan Anesthesia: Monitored anesthesia care. Anesthetic plan, risks, benefits, and alternatives discussed with the patient and/or family. Patient verbalized understanding. Family/Guardian present. Informed consent was given. Consent was signed by the patient. [Electronically Signed on: 10/30/2023 11:53 EDT] Kash Amaya MD [Verified on: 10/30/2023 11:53 EDT] Kash Amaya MD [facility] Inpatient Patient Summaryon 10-30-2023 [place] [address] Patient Discharge Instructions Name: DAYANNA GRIMM : 1950 Patient Address: [address] [place] [address] Primary Care Provider: Name: Naya Travis MD After you are discharged if you find you have any questions, please, call [phone] ext [phone] to speak to a nurse. Discharge Diagnosis: Trigger finger, right index finger Prescription Information: If you have been given a prescription for narcotics, seek immediate medical attention if you have any difficulty breathing or any sudden status changes such as confusion and sleepiness. If you or anyone you know is experiencing suicidal thoughts, mental health, alcohol and/or drug addiction problems; contact the [facility] 23/01 Crisis Hotline -Text 4HOPE to 855492. If you received any narcotics, sedation, or [...] business decisions or sign any legal documents [facility] would like to thank you for allowing us to assist you with your healthcare needs. The following includes patient education materials and information regarding your injury/illness. DAYANNA GRIMM has been given the following list of follow-up instructions, prescriptions, and patient education materials: Follow-up Instructions With: Address: When: [address] [place] [address] Business (1) 11/08/2023 10:15 AM Medications [...] Diet & Activity (more content not included)... [facility] [facility]-30[facility]2023 [facility] Postoperative Record MAGR Phase II Record Summary Primary Physician: Paris Stone DO Finalized Date/Time: 10/30/23 13:36:52 Pt. Name: DAYANNA GRIMM/Sex: 1950 FEMALE Med Rec #: [id number] Physician: Paris Stone DO Financial #: [id number] Pt. Type: D Room/Bed: / Admit/Disch: 10/30/23 [...] Signed By: Francheska Be RN 10/30/23 13:36 [facility] 0 10-30-2023 [facility] Preoperative Record [facility] Pre-Op Record Summary Primary Physician: Paris Stone DO Finalized Date/Time: 10/30/23 13:37:55 Pt. Name: DAYANNA GRIMM/Sex: 1950 FEMALE Med Rec #: [id number] Physician: Paris Stone DO Financial #: [id number] Pt. Type: D Room/Bed: / Admit/Disch: 10/30/23 10:44:52 - Institution: Pre-Op Case Times SAL Pre-Care Text: Patient will be optimally prepared [...] consent correct. General Comments: pt arrives to W ambulatory. denies CP,cough,cold, COVID like symtpoms. pt has diabetes and a pacemaker/defib, denies sleep apnea. pt verbalizes understanding of post op anesthesia orders including no driving for 24 hours. Finalized By: Francheska Be RN Document Signatures Signed By: Francheska Be RN 10/30/23 13:37 Normal [facility] POCT Glucose Levelon 024 Glucose [Mass/Vol] 109 mg/dL Normal [address] Comment on above: Result Comment: OPR_ ID=[email or web address],TGC FLAG = False,Meter:[id number] Fingernail Sculpturer:[id number] Performed By: #### 4 [id number] ####[facility] (DEFAULT)[address] [place] [address] Glucose [Mass/Vol] 126 mg/dL High 74-118 [facility] Comment on above: Result Comment: OPR_ ID=[email or web address],TGC FLAG = False,Meter:[id number] Fingernail Sculpturer:JesusLashawn Goode Performed By: #### 4 [id number] ####[facility] (DEFAULT)[address] [place] [address] Patient Handouton 10-30-[address] STONE'S TRIGGER FINGER RELEASE INSTRUCTIONS: SURGEON'S WRITTEN INSTRUCTIONS: 1. Keep your hand elevated above your elbow for the first 24 hours after surgery. 2. Wiggle your fingers frequently while awake. 3. DO NOT lift heavy objects or tower dragline operator forcefully with your hand. 4. Change your dressing as necessary to keep the wound clean and dry. 5. You may shower in 1 day but do not submerge your hand under water. 6. If you have any questions or concerns, please call the office at [phone] or go to the emergency room. 7. Follow up as scheduled. [facility] Progress Note - Nurseon 10-02 Progress Note - Nurse Pre-op call for 10-30-2023 surgery made- pt given arrival time of 1100 on 10-30-2023. Pt reminded of NPO status after midnight except for any meds that she was instructed to take with sip of water, hibiclens shower, to bring photo ID and insurance card, needing hack driver- pt with understanding. [Electronically Signed on: 10/27/2023 14:36 EDT] Maru Hobson RN [Verified on: 10/27/2023 14:36 EDT] Maru Hobson RN [facility] Coding Summaryon 10-16-2023 Coding Summary HTMLBase 64 GfjskwzcQNw0zIg+PGhl YWQ+FU7GFJTvF11gwKXe jR3bA1GUZTiGMinlOKEK RGrZVfXjjoQoZX0agDTb ZXJu IC8+XL3mNJGsFxeqkYUk a9P5fEH0V91dvz7cWNeu fWV5ACTuBtVhehurw0uu bZy8ZSgyAekcViXg CNGzhF61KNH1fE49Vu51 hMIsoHHpg7fpsYq2PvUa QOIiAJN4vMmpFRzrq1Yv HKFbO55wzMWbw7D4 IGNvbGxhcHNlOyBlbXB0 gM5wIIzbxheee5ewjmfl Ekd8wx15iBRjx8Y4mOW1 E4GbtkH9IBYatNSn MjlrmSGJaJ8wiibtv0aa lznpAlXoJCNpPWn7UZx3 RGFwiVfaGhGoAK16NKW5 XUGmjjRfW9CgHQXg vQugNqF5f5E3Nj9SV5VJ FowyX7QUOOGTKAhheHG+ CN08it77Q0KyArgyRwm4 DTCjDIN0rHN9cK9i ZEFeAIrnp0U4cWM5B4Cn oaRice0vw4etGBZyQKkz A55zrGLbn5H4QHJxbXW2 XBRutYjiVuTdbN63 Oyc+KEShhMbgk0LhVgfl t1tkj6eihKc8GdnwXXAl njHaqOqrWYE2e8UtDf0e CKZcqTY6fSG0pR6i WeIxGnT8JWhuZ024QdIl hJDpMlvkD19vZ8EojJF+ XDAlFxj9JXMhmEakCO0z H0OfMBKlastlvMKm wKuaOJ1oJDWqvplgDMPt eB1yWGCcX4b5HkEaEhE7 UFwfM2IiDTRckuieFb49 mA1pAeNiEkP4SWhp X5PzwvK8LJBfwHPvLSmt YWD1D05vi8K4AZSwLGKo XFU5lFK2uH4laYlvcola bGVmdDsgdmVydGlj DHopQLgbD433OVBtqUko PkNvZGluZyBEYXRlOiAg MDQvMTUvMjAyNDwvdGQ+ HQLhZJL2fEvwTYPd cQFuTGxxVc6ilIpkrIew YL7rQNCevwgpBKJzxD0c SNMwiLWmbLzjDT5nJUQp krmse993BpHkGNA9 JGQngHQcQ5PnpM1kLmOt CSCqUHFxA5GacECuYTzw A001AVbsXfH4XBNqvpCm W4OiAPIbwUfrRcL1 n2V7Pg4Fq6FjeyvaX8Qw kHSeTaEfGlnfTMj2A1Xn PjwvdHI+HX66ZJRmFR30 GFz9APT7iKomFOmf TKKzB3SouN0mPxUsWQIc ZGRkOyc+PHRhYmxlIHdp ZHRoPScxMDAlJyBzdHls CR1iEq1zNSDnTFVm iKjqsCGvGxQdl3bkAPKb CKdsRM2yiKohW0YdtJO7 CZVon0x8Bp68N64tM1Oa dXA+KLGlfAB2cGO4 kZ1vNvVuNcL8JFvdC486 CbEsfKVuAhpsd6hma0ep lIn5IhB2IRDylwVolEcg IVY6t0JeIg69K51h IHdpZHRoPSIxNSUiIHZh wGipik3djJ5ePk8+PGNv qQB3nBO7bJ6fQuZtApR0 EYmkB095OxZzxIHt Slkei7yrw3heuLo9CoCs PILgroPnhViiCGT1a5Ru Fj57S2UufBsxn8ZbNad5 pn16uHYol8O3lQJ3 R0LkMLRjleubsAXifQcs VW7kTYLxxtpbUXVlwW2u POHjA5s4JiJwDmJ2KAnq F3UdtaK5KWLogFAb OSLugXYGyB6xoikjt8ti eoeuRyMaXZNjFAl6UDp2 NJOwfQszDsDuDBE8HsK7 XFZ0dMJoxO2qxFkf doxbyI0kMiq+DKH3wSNa dOSZWQ9bTismzPA+PHRk YZN7fSiyFPvjFTJzkO4k QHIrL2m9AjJwWiO3 YMrtI7AobyR7NZXjhOUj SIDkhSYZpD7gczlsc3ec rvjoXyPuZWWmHTz7RGl2 LWFsaWduOiBsZWZ0 SzE6GZK1hIIkyV8roNrv skrwkW8iKdp+QmlydGgg IHK0CLq3F1ZaVil5YQYb oHmyWG7ugDQyXZyj Jk3cuCjbhZfzRM4lXMAa ywrek367WbYtj0hdEDWo fLZhNQneFAI9O36sk0F8 UCSkFIJwZAJ0aHJ2 gF2elFgqwowdqXDodCma sjEjoTtfYGhxLEiuN986 LQEmcWauQmLjJQx9S6It Bog7AREjoXofNT2x zSKxDRvlLl9xrFqscSyo CB5xYZKmdzkml575LqRp j1xjMMIfhVFxROxlIRF9 H08rr7S3ZDVpMJEu EIX8wLI4hW7ezBihobjj bGVmdDsgdmVydGljYWwt NXubG572ZTRfdFvwFqWl gKk8Y5UiZpx5JOQy wNygXX7eoPPqBDjwZe0o zDfsxIiiWL6aCSQrjpgi f520AuUpo2yqAGFciBXp EXiwMRE8V02ms0A4 HTIcCEUaSPH3yWN9aK7s bGlnbjogbGVmdDsgdmVy qHxtTVorOJugF267FRGv cDsnPlBhdGllbnQg ORbzXKc7X2NgNdymqIG+ OZ87AVEdFR09qMGuqQDd k7igjSb8PvAiZHWfJXT2 aWmkWCwmu8BeFOTj U57ptVXdz2I5HDPhcJth yBLfIhHpzFF9qZ4rSJwk nlgpw8cfjycsGadsu5hk rw54iY91M99xRIzd ZHRoPSIzMCUiIHZhbGln bl3syV9oRk3+PGNvbCB3 cAL8yW7fSSGiIoW2FAfr X183YmZnwMEsBivq m1mjr5mxbIp3LwY4CTIg irTykIhlRPC8y5TeVc14 O13jWEcwZORfOEMpRLOq KZIvmUbybs3piL2k Ii8+BIFvoPK3zSR9kB3s NfHmYlJ6KMbsT986CvNu fYWhNrcxR75rY9ShlRE+ VPKaVze0ZOQplMgs FU7ijBXkZYsiZc0lQOX0 RtKxFfVjBKmvB9BoLCFg kvrkmzkldLE1DMSqIGFf zM55Zv7poNtmQFDt qOGGqE1yebbhj7ednqyj ZiFlPDPhLWh9ASq3VOPs xGyvNjQnCDY8LvA9SQX7 gZGqqY9hpUkgxgfn cS5xR3TxRIDapahnOv25 bZ8cMdJhLsU1IRchPze+ UkFEVEtFLCBaRUxMQTwv dGQ+OMIkHXA9oBnp XWuiWHYimI8xDJLhJ7t9 GzOyWzW7OKpzF8SwGNCi otiuYr43jI6mGoCgGzU5 WRkyX6TlazO8NYIi mRCaWZxsNZI7E16kl6F1 OIPfRDWzUMQ3pDN8yU8z bGlnbjogbGVmdDsgdmVy xYjtCShbLLbkJ198 DJVyyBwyLkA8WeAwGgP0 BCr4Q2NxUch4JECloJuu SP2foBLtVLcbPa7laSme hAclJU9mTNYyabnh YKDifG6wCAVvwRMawVsd MS1lRNLddmnks799KuVl BKV3WGLteOFkV7XwoZ5h JsCbGUQjKCSgG3Ik uLLdKSiwE596MKxwToT5 FMLhroSdB6BzJFDgeGqt AtG7c9Z5Wd47GCCNFGWs czwvdGQ+PHRkIHN0 eNqsHRyfSAMxkF4oLJSd P9k7RzRtOyI3JZllI1Cs UQZeucscHg60cG1uWpJz DxH3MStrX8QhacR4 GDAqjHXpULzyOCN7I66m c2Y8WLScXBFqCMS2gGQ8 xW9jiNnthaekbUOhjLem dmVydGljYWwtYWxp P738QXKzkUwoOdPDGNWC RTwvdGQ+BQXmBUA3wJha EPcvERBuyQ7mIDFaJ8s1 CrUbWlD2WLkxE2Sp QSCahywcBn48iK8vXhJr AgD7QIchU3DxqzH3AGLs zOEqKAinROV6K76hm2T0 CIQePPCkXYS1qGN7 aC1vlQwxzakgrIAnoUuo hbXgiDpcOTbvUWagC042 IQUaoSgfLt7NDR81FM62 O6OsGqbcnRQidQM+ PHRhYmxlIHdpZHRoPScx YIVvMyWwxAwbQC9nUd7n ZGVyLWNvbGxhcHNlOiBj e8alMZXsKXgaEC3n aUaaJ5NvvWL7WWLex2b5 Vi90H19hN6TarLZ+PGNv eUM7qBE6hQ2iXdEfBwF2 ACwzB483BpSzqSBs Jcnhg9fcd3hdnTm5JfOk EURhthEodLwqXQU5y2Qo Vk50L50dRAzbFBUqRXHm CFBfUMXrzTxgif8v yN1mUo4+HHOrgZT8yQE0 bG4bCgRnKfS2HCrcC402 FcXzmTGjTlpxV26bA3Mn dXA+MOOfPpf1TREj bFhjGB9jhFOzXMkzVa5x SVG3TnUeIbOvMPuxG9Ft HPGbqxofnhvurVA2PYPb TLLsyV47Ym0msTlg Cc7dJDFaAYN1UGNzpNWr U1FkzQ2eNrTmADDlIDZi O5MibQWvVAdfI808NQbe MaF3XVRosvHzB4Bp UTWcgFynQyD2m6O9Zn0H cFwdgLRaNT0nYhHrZBf5 H2BjMck1TNGflTrgLZ9x pJSbEVlfXg6bkRpi vFisJS1mUHNryythg758 PvFua2ytYPZteQImZNsy KDL2G67pb7Y7ISQzABMu JVF2vGT8wR5cjZdf bjogbGVmdDsgdmVydGlj XUxpGOgzP889AVYpcQnf HeRMSax9Z6PoZmi7PPUd lSbgLI5umDCySXzu Jm5jrPzieSlsHX7jROIq rctbh405TuDcq5myPHMs zAOyNBstYOU0R48cg0Y6 XBIsROMoIEI3xJT7 iK0kySkltkbnnCFlcAfn fvTefSsuZFjcZLnjD360 QPXvbVtyVn0JGkk8T4Yy Voc7JCAelDxzKY3m iLCgXRvlZq3xhQsqaSsn SH4zAWArxxbfo995XpPt d6nbWPGlhSHpOWqrKBF8 J31xw2Y6BOOzPKRv WEA5rNE9gR5jkEenerzy bGVmdDsgdmVydGljYWwt QYrlG544LBBdgThrCiTa eWVyOjwvdGQ+PC90 uu13R3YsVpqjBaf9KCVp ZOD1yUT0aW4eEOPwIYtg v5M6eRD6F5ZhraDuln8w z1vzZEFwSRwbN86p bGF (more content not included)... [facility] Progress Note - Nurseon Progress Note - Nurse PAT reviewed by Dr. White anesthesiology, no new orders received [Electronically Signed on: 10/09/2023 13:48 EDT] Kim Fernandez RN [Verified on: 10/09/2023 13:48 EDT] Kim Fernandez RN Normal [facility] .Auto Diff 1on 10-06-2023 Auto [place] % 8 % Normal 1-12 [facility] Comment on above: Performed By: #### 1 [id number], [id number], [id number] ####[facility] (DEFAULT)[address] [place] [address] Baso Abs# 0.1 x10 Normal 0.0-0.2 [facility] Comment on above: Performed By: #### 1 [id number], [id number], [id number] ####[facility] (DEFAULT)[address] [place] [address] Basophils/100 WBC (Bld) 1.1 % Normal 0.2-2.0 [facility] Comment on above: Performed By: #### 1 [id number], [id number], [id number] ####[facility] (DEFAULT)[address] [place] [address] Eos Abs# 0.2 x10 Normal 0.0-0.4 [facility] Comment on above: Performed By: #### 1 [id number], [id number], [id number] ####[facility] (DEFAULT)[address] [place] [address] Eosinophils/100 WBC (Bld) 2.3 % Normal 0.9-4.0 [facility] Comment on above: Performed By: #### 1 [id number], [id number], [id number] ####[facility] (DEFAULT)[address] [place] [address] Lymph Abs# 1.5 x10 Normal 1.3-2.9 [facility] Comment on above: Performed By: #### 1 [id number], [id number], [id number] ####[facility] (DEFAULT)[address] [place] [address] Lymphocytes/100 WBC (Bld) 17 % Normal 14-48 [facility] Comment on above: Performed By: #### 1 [id number], [id number], [id number] ####[facility] (DEFAULT)[address] [place] [address] [place] Abs# 0.7 x10 Normal 0.0-0.8 [facility] Comment on above: Performed By: #### 1 [id number], [id number], 0634121 ####[facility] (DEFAULT)[address] [place] [address] Neut Abs# 6.3 x10 Normal 1.5-9.2 [facility] Comment on above: Performed By: #### 1 [id number], 54253559, [id number] ####[facility] (DEFAULT)[address] [place] [address] Neutrophils/100 WBC (Bld) 72 % Normal 44-88 [facility] Comment on above: Performed By: #### 1 [id number], [id number], 2554860 ####[facility] (DEFAULT)[address] [place] [address] Standardon 10-06-2023 eGFR Non AA 30 mL/min/1.73m2 Invalid Interpretation Code [facility] Comment on above: Performed By: #### 1 [id number], [id number], 7662025 ####[facility] (DEFAULT)[address] [place] [address] eGFR AA 36 mL/min/1.73m2 Invalid Interpretation Code [facility] Comment on above: Performed By: #### 1 [id number], [id number], 2720498 ####[facility] (DEFAULT)[address] [place] [address] Anion gap [Moles/Vol] 11.9 mmol/L Normal 5.0-19.0 [facility] Comment on above: Performed By: #### 1 [id number], 90217329, 2131449 ####[facility] (DEFAULT)[address] [place] [address] Calcium [Mass/Vol] 9.7 mg/dL Normal 8.9-10.3 [facility] Comment on above: Performed By: #### 1 [id number], 92548120, 1629779 ####[facility] (DEFAULT)[address] [place] [address] 14938 Chloride [Moles/Vol] 104 mmol/L Normal 101-111 [facility] Comment on above: Performed By: #### 1 [id number], 12405678, 0608018 ####[facility] (DEFAULT)[address] [place] [address] 41751 CO2 [Moles/Vol] 26 mmol/L Normal 21-32 [facility] Comment on above: Performed By: #### 1 [id number], 05344409, 5475491 ####[facility] (DEFAULT)[address] [place] [address]69 Creatinine [Mass/Vol] 1.69 mg/dL High 0.60-1.30 [facility] Comment on above: Performed By: #### 1 [id number], 48047180, 4652545 ####[facility] (DEFAULT)[address] [place] [address] Glucose [Mass/Vol] 118.0 mg/dL Normal 74.0-118.0 [facility] Comment on above: Performed By: #### 1 [id number], 53185780, 3934845 ####[facility] (DEFAULT)[address] [place] [address] Osmolality 283 mOsm/L Invalid Interpretation Code [facility] Comment on above: Performed By: #### 1 [id number], 88901849, 5174753 ####[facility] (DEFAULT)[address] [place] [address] Potassium [Moles/Vol] 4.9 mmol/L Normal 3.6-5.1 [facility] Comment on above: Performed By: #### 1 [id number], 32034093, 0406947 ####[facility] (DEFAULT)[address] [place] [address] 05452 Sodium [Moles/Vol] 137.0 mmol/L Normal 136.0-144.0 [facility] Comment on above: Performed By: #### 1 [id number], 06743676, 0898308 ####[facility] (DEFAULT)[address] [place] [address] 18393 Urea nitrogen [Mass/Vol] 35 mg/dL High 8-26 [facility] Comment on above: Performed By: #### 1 [id number], 38527399, 6338233 ####[facility] (DEFAULT)[address] [place] [address] Urea nitrogen/Creatinine [Mass ratio] 20.7 mg/mg High 4.6-16.2 [facility] Comment on above: Performed By: #### 1 [id number], 02336581, 9213555 ####[facility] (DEFAULT)[address] [place] [address] CBC w/ Auto Diffon 4 Erythrocyte distribution width (RBC) [Ratio] 14.3 % Normal 11.5-15.0 [facility] Comment on above: Performed By: #### 1 [id number], 38285476, 8108632 #### [facility] (DEFAULT) [address] [place] [address] Hematocrit (Bld) [Volume fraction] 37.6 % Normal 33.7-40.4 [facility] Comment on above: Performed By: #### 1 [id number], 21584944, 2714251 #### [facility] (DEFAULT) [address] [place] [address]36[address] Hemoglobin (Bld) [Mass/Vol] 12.4 g/dL Normal 11.3-15.9 [facility] Comment on above: Performed By: #### 1 [id number], 27362691, 7822830 #### [facility] (DEFAULT) [address] [place] [address] Man Diff? Auto Invalid Interpretation Code [facility] Comment on above: Performed By: #### 1 [id number], 92483812, 9446665 #### [facility] (DEFAULT) [address] [place] [address] 49501 MCH (RBC) [Entitic mass] 30 pg Normal 24-34 [facility] Comment on above: Performed By: #### 1 [id number], 99903230, 2441614 #### [facility] (DEFAULT) [address] [place] [address] 41337 MCHC (RBC) [Mass/Vol] 33 g/dL Normal 26-37 [facility] Comment on above: Performed By: #### 1 [id number], 35606143, 4720054 #### [facility] (DEFAULT) [address] [place] [address] 55519 MCV (RBC) [Entitic vol] 90 fL Normal 81-100 [facility] Comment on above: Performed By: #### 1 [id number], 23924835, 3664979 #### [facility] (DEFAULT) [address] [place] [address] 80130 Platelet 195 x10 Normal 138-427 [facility] Comment on above: Performed By: #### 1 [id number], 58254117, 3851404 #### [facility] (DEFAULT) [address] [place] [address] 04955 Platelet mean volume (Bld) [Entitic vol] 7.1 fL Normal 6.3-10.2 [facility] Comment on above: Performed By: #### 1 [id number], 54335409, 6529356 #### [facility] (DEFAULT) [address] [place] [address] 85596 RBC 4.18 x10 Normal 3.70-5.30 [facility] Comment on above: Performed By: #### 1 [id number], 26508727, 9095422 #### [facility] (DEFAULT) [address] [place] [address] 71179 WBC 8.7 x10 Normal 3.5-10.5 [facility] Comment on above: Performed By: #### 1 [id number], 11826548, 4601325 #### [facility] (DEFAULT) [address] [place] [address]50 Progress Note - Nurseon 040 Progress Note - Nurse Call made to [facility]ph[facility], spoke with Estelita ([phone]) requested last office notes and any testing results done from last office visit with Dr. Mendoza. States will fax over. [Electronically Signed on: 10/06/2023 13:44 EDT] Amber Villeda RN [Verified on: 10/06/2023 13:44 EDT] Amber Villeda RN [facility] Progress Note - Nurse [facility] Cardiology called, spoke with Sherice. Requested the last office visit and pacemaker interrogation information be faxed to us. States she will fax it over. [Electronically Signed on: 10/06/2023 13:10 EDT] Amber Villeda RN [Verified on: 10/06/2023 13:10 EDT] Amber Villeda RN [facility] Lipid 1996 panelon 4 Cholesterol [Mass/Vol] 163 mg/dL Normal 150-200 [facility] Comment on above: Performed By: #### [facility], 36065-6 #### [facility] ([id number]) [address], [address] [place] [address] Cholesterol in HDL [Mass/Vol] 47 mg/dL Normal >39 [facility] Comment on above: Result Comment: HDL <40 mg/dL - High Risk HDL > or = 40mg/dL- Desirable HDL >60 mg/dL - Negative Risk Performed By: #### [facility], 30929-2 #### [facility] ([id number]) [address] [facility] [address] [place] [address] Cholesterol in LDL [Mass/Vol] 80 mg/dL Normal <130 [facility] Comment on above: Result Comment: LDL <100 mg/dL - Desirable LDL >160 mg/dL - High Risk Performed By: #### T MIKE, 72525-2 #### [facility] ([id number]) [address], [address] [place] [address] Cholesterol in VLDL [Mass/Vol] 36 mg/dL High 0-30 [facility] Comment on above: Performed By: #### T MIKE, 92659-7 #### [facility] ([id number]) [address], [address] [place] [address] CHOLESTEROL:HDL 3.5 Normal 1.0-5.0 [facility] Comment on above: Performed By: #### T MIKE, 65462-4 #### [facility] ([id number]) [address], [address] [place] [address] Triglyceride [Mass/Vol] 181 mg/dL High 27-150 [facility] Comment on above: Performed By: #### T MIKE, 09962-2 #### [facility] ([id number]) [address], [address] [place] [address] TSH WITH REFLEXon 09-26-2023 TSH 1.44 uIU/mL Normal 0.49-4.67 [facility] Comment on above: Performed By: #### T MIKE, [id number] #### [facility] ([id number]) [address], [address] [place] [address] RESPIRATORY PANEL PLUSon Adenovirus Not detected Normal NOT DETECTED [facility] Comment on above: Performed By: #### R SPLUS #### [facility] [address] [place] [address] Dr. Bozena Bruce Parapertusis Not detected Normal NOT DETECTED [facility] Comment on above: Performed By: #### R SPLUS #### [facility] [address] [place] [address] Dr. Bozena Bruce Pertussis Not detected Normal NOT DETECTED [facility] Comment on above: Performed By: #### R SPLUS #### [facility] [address] [place] [address] Dr. Bozena Snow Chlamydia Pneumoniae Not detected Normal NOT DETECTED [facility] Comment on above: Performed By: #### R SPLUS #### [facility] [address] [place] [address] Dr. Bozena Snow Coronavirus 229E Not detected Normal NOT DETECTED [facility] Comment on above: Performed By: #### R SPLUS #### [facility] [address] [place] [address] Dr. Bozena Snow Coronavirus HKU1 Not detected Normal NOT DETECTED [facility] Comment on above: Performed By: #### R SPLUS #### [facility] [address] [place] [address] Dr. Bozena Snow Coronavirus NL63 Not detected Normal NOT DETECTED [facility] Comment on above: Performed By: #### R SPLUS #### [facility] [address] [place] [address] Dr. Bozena Snow Coronavirus OC43 Not detected Normal NOT DETECTED [facility] Comment on above: Performed By: #### R SPLUS #### [facility] [address] [place] [address] Dr. Bozena Snow Influenza A H1 2009 Not detected Normal NOT DETECTED [facility] Comment on above: Performed By: #### R SPLUS #### [facility] [address] [place] [address] Dr. Bozena Snow Influenza A H3 Not detected Normal NOT DETECTED [facility] Comment on above: Performed By: #### R SPLUS #### [facility] [address] [address] [address] Bozena Snow Influenza B Not detected Normal NOT DETECTED [facility] Comment on above: Performed By: #### R SPLUS #### [facility] [address] [place] [address] Dr. Bozena Snow Metapneumovirus Not detected Normal NOT DETECTED [facility] Comment on above: Performed By: #### R SPLUS #### [facility] [address] [place] [address] Dr. Bozena Snow Mycoplas. Pneumoniae Not detected Normal NOT DETECTED [facility] Comment on above: Performed By: #### R SPLUS #### [facility] [address] [place] [address] Dr. Bozena Snow Parainfluenza 1 Not detected Normal NOT DETECTED [facility] Comment on above: Performed By: #### R SPLUS #### [facility] [address] [place] [address] Dr. Bozena Snow Parainfluenza 2 Not detected Normal NOT DETECTED [facility] Comment on above: Performed By: #### R SPLUS #### [facility] [address] [place] [address] Dr. Bozena Snow Parainfluenza 3 Not detected Normal NOT DETECTED [facility] Comment on above: Performed By: #### R SPLUS #### [facility] [address] [place] [address] Dr. Bozena Snow Parainfluenza 4 Not detected Normal NOT DETECTED [facility] Comment on above: Performed By: #### R SPLUS #### [facility] [address] [place] [address] Dr. Bozena Snow Rhino/Enterovirus Not detected Normal NOT DETECTED [facility] Comment on above: Performed By: #### R SPLUS #### [facility] [address] [place] [address] Dr. Bozena Snow RP2 Header 1 RESPIRATORY PANEL: VIRUSES Normal [facility] Comment on above: Performed By: #### R SPLUS #### [facility] [address] [address] [address] Bozena Snow RP2 Header 2 RESPIRATORY PANEL: BACTERIA Normal [facility] Comment on above: Performed By: #### R SPLUS #### [facility] [address] [place] [address] Dr. Bozena Snow RSV Not detected Normal NOT DETECTED [facility] Comment on above: Performed By: #### R SPLUS #### [facility] [address] [address] [address] Bozena Snow SARS-CoV-2 (COVID-19) RNA LIZ+probe Ql (Unsp spec) Not detected Normal NOT DETECTED [facility] Comment on above: Performed By: #### R SPLUS #### [facility] [address] [place] [address] Dr. Bozena Snow Coding Summary.on 04-23-2018 Coding Summary. CODING DATE: 04/23/2018 FINAL [facility] STATUS: PAYOR: Medicare APC DESCRIPTION 5722 Level [...] Carvalho Date Saved: 04/23/2018 02:14 pm Normal [facility] AUD - Progress Noteson 04-20 Protein mass conc PT. referred for ABR testing for rectrocochlear involvement by Dr. Maddox. Pt. denied ear pain during the test session, had difficulty staying still due to hip/leg pain. Pt. will see Dr. Maddox for interpretation of results and recommendations. See AUD-Assessments for Report/Results. DX CODES: H90.5 unspecified sensorineural hearing loss Normal [facility] Vital Signs Date Time Vital Sign Value Performing Clinician Facility 08-28-2024 09:39-0500 Body height 152.4 cm Joe Roberto MD Work Phone: [facility] 08-28-2024 09:39-0500 Body mass index (BMI) [Ratio] 33.79 kg/m2 Joe Roberto MD Work Phone: [facility] 08-28-2024 09:39-0500 Body weight 78.47 kg Joe Roberto MD Work Phone: [facility] 08-28-2024 09:39-0500 Diastolic blood pressure 80 mm[Hg] Joe Roberto MD Work Phone: [facility] 08-28-2024 09:39-0500 Heart rate 81 /min Joe Roberto MD Work Phone: [facility] 08-28-2024 09:39-0500 SaO2% (BldA) [Mass fraction] 95 % Joe Roberto MD Work Phone: [facility] 08-28-2024 09:39-0500 Systolic blood pressure 126 mm[Hg] Joe Roberto MD Work Phone: [facility] 08-16-2024 09:45-0500 Body height 152.4 cm Tanisha MILLIGANM Work Phone: [facility] 08-16-2024 09:45-0500 Body mass index (BMI) [Ratio] 32.61 kg/m2 Tanisha Molina DPM Work Phone: [facility] 08-16-2024 09:45-0500 Body weight 75.75 kg Tanisha MILLIGANM Work Phone: [facility] 07-18-2024 14:20-0500 Diastolic blood pressure 75 mm[Hg] Baudilio Mendoza MD Work Phone: [facility] 07-18-2024 14:20-0500 Heart rate 77 /min Baudilio Mendoza MD Work Phone: [facility] 07-18-2024 14:20-0500 Systolic blood pressure 139 mm[Hg] Baudilio Mendoza MD Work Phone: [facility] 07-18-2024 14:17-0500 Body height 152.4 cm Baudilio Mendoza MD Work Phone: [facility] 07-18-2024 14:17-0500 Body mass index (BMI) [Ratio] 34.12 kg/m2 Baudilio Mendoza MD Work Phone: [facility] 07-18-2024 14:17-0500 Body weight 79.24 kg Baudilio Mendoza MD Work Phone: [facility] 05-02-2024 10:37-0400 Body height 152.4 cm Tanisha Caleb DPM Work Phone: [facility] 05-02-2024 10:37-0400 Body mass index (BMI) [Ratio] 33.79 kg/m2 Tanisha Caleb DPM Work Phone: [facility] 05-02-2024 10:37-0400 Body weight 78.47 kg Tanisha Caleb DPM Work Phone: [facility] 03-11-2024 14:28-0400 Body height 152.4 cm Margie Petznick DO Work Phone: [facility] 03-11-2024 14:28-0400 Body mass index (BMI) [Ratio] 33.79 kg/m2 Margie Petznick DO Work Phone: [facility] 03-11-2024 14:28-0400 Body temperature 98.2 [degF] Margie Petznick DO Work Phone: [facility] 03-11-2024 14:28-0400 Body weight 78.47 kg Margie Petznick DO Work Phone: [facility] 03-11-2024 14:28-0400 Diastolic blood pressure 60 mm[Hg] Margie Petznick DO Work Phone: [facility] 03-11-2024 14:28-0400 Heart rate 66 /min Margie Petznick DO Work Phone: [facility] 03-11-2024 14:28-0400 SaO2% (BldA) [Mass fraction] 97 % Margie Petznick DO Work Phone: [facility] 03-11-2024 14:28-0400 Systolic blood pressure 122 mm[Hg] Margie Petznick DO Work Phone: [facility] Healthcare Encounters Encounter Date Encounter Type Care Provider Facility Start: 09-11-2024 End: 09-11-2024 Telephone encounter Catrachita Russell RN [facility] Start: 09-09-2024 End: 09-09-2024 Telephone encounter Margie Saenz DO Work Phone: [facility] Start: 09-09-2024 End: 09-09-2024 ambulatory MARGIE SAENZ Not Available Start: 08-28-2024 End: 08-28-2024 Office outpatient visit 25 minutes Joe Roberto MD Work Phone: [facility] Comment on above: Persistent atrial fi brillation (CMS-HCC) (Primary Dx); Presence of cardiac pacemaker; Primary hypertension; Chronic heart failure with preserved ejection fraction (CMS-HCC); Preop cardiovascular exam Start: 08-28-2024 End: 08-28-2024 Patient encounter status Joe Roberto MD Work Phone: [facility] Start: 08-28-2024 End: 08-28-2024 Clinical Support [facility] Comment on above: Presence of cardiac pacemaker- [employer] (Primary Dx) Start: 08-27-2024 End: 08-27-2024 Telephone encounter Ashwini Fitzpatrick CMA [facility] Start: 08-16-2024 End: 08-16-2024 Bamboo flowsheet Tanisha Molina DPM Work Phone: [facility] Start: 08-16-2024 End: 08-16-2024 Bamboo flowsheet Tanisha Molina DPM Work Phone: [facility] Start: 08-16-2024 End: 08-16-2024 Patient encounter procedure Tanisha Molina DPM Work Phone: [facility] Comment on above: 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, not stated as uncontrolled(250.60) ([facility]) (Primary Dx); Onychomycosis Start: 08-16-2024 End: 08-16-2024 ambulatory TANISHA MOLINA Not Available Start: 07-24-2024 End: 07-24-2024 Refill Shannan Souza RN [facility] Comment on above: Med Refill Start: 07-18-2024 End: 07-18-2024 Office outpatient visit 25 minutes Baudilio Mendoza MD Work Phone: [facility] Comment on above: Stage 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 margarita disease (CKD) ([facility]) (Primary Dx) Start: 07-16-2024 End: 07-16-2024 ambulatory BAUDILIO MENDOZA [facility] Start: 07-15-2024 End: 07-15-2024 ambulatory BAUDILIO Coleman [facility] Start: 07-15-2024 Encounter for other preprocedural examination [facility] Start: 07-11-2024 End: 07-11-2024 Telephone encounter Guera Sanchez CMA [facility] Start: 06-21-2024 End: 06-21-2024 ambulatory 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, not stated as uncontrolled(250.60) ([facility]) (Primary Dx); Onychomycosis; Ingrown nail; Hammer toes of both feet Start: 05-02-2024 End: 05-02-2024 ambulatory TANISHA MOLINA Not Available Start: 04-11-2024 End: 04-11-2024 ambulatory [facility] Start: 04-09-2024 End: 04-09-2024 ambulatory [facility] Start: 03-21-2024 End: 03-21-2024 ambulatory [facility] Start: 03-11-2024 End: 03-11-2024 Office outpatient visit 25 minutes Margie Saenz DO Work Phone: [facility] Comment on above: Type 2 diabetes westley itus with stage 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ney disease, without long-term current use of insulin ([facility]) ([facility]) Start: 03-11-2024 End: 03-11-2024 ambulatory MARGIE SAENZ Not Available Start: 03-05-2024 End: 03-05-2024 ambulatory [facility] Start: 02-06-2024 End: 02-06-2024 ambulatory [facility] Start: 01-29-2024 End: 01-29-2024 ambulatory [facility] Start: 01-29-2024 End: 01-29-2024 ambulatory [facility] Start: 01-18-2024 End: 01-18-2024 ambulatory TANISHA MOLINA Not Available Start: 01-16-2024 End: 01-16-2024 ambulatory [facility] Start: 01-03-2024 End: 01-03-2024 ambulatory [facility] Start: 01-02-2024 End: 01-02-2024 ambulatory [facility] Start: 01-02-2024 End: 01-02-2024 ambulatory [facility] Start: 12-12-2023 End: 12-12-2023 ambulatory [facility] Start: 12-12-2023 End: 12-12-2023 ambulatory [facility] Start: 11-20-2023 End: 11-20-2023 ambulatory [facility] Start: 11-20-2023 End: 11-20-2023 ambulatory [facility] Start: 11-16-2023 End: 11-16-2023 ambulatory ALFREDITO QUINNFLETCHER Not Available Start: 11-15-2023 End: 11-15-2023 ambulatory STAN SCHWAB Not Available Start: 11-07-2023 End: 11-07-2023 ambulatory STAN SCHWAB Not Available Start: 10-30-2023 End: 10-30-2023 ambulatory Paris Stone Facility:[facility] Start: 10-06-2023 End: 10-06-2023 ambulatory Naya Ulrich Travis Facility:[facility] Start: 10-05-2023 End: 10-05-2023 ambulatory PARIS STONE Not Available Start: 10-03-2023 End: 10-03-2023 ambulatory TANISHA MOLINA Not Available Start: 09-26-2023 End: 09-26-2023 ambulatory [facility] Start: 09-14-2023 End: 09-14-2023 ambulatory PARIS STONE Not Available Start: 07-13-2022 Patient encounter status Guera marquez [facility] Work Phone: Start: 07-13-2022 Encounter for preprocedural cardiovascular examination JOE Corbin [facility] Start: 07-06-2022 End: 07-06-2022 ambulatory BECKIE FITZPATRICK Facility: Start: 04-20-2018 End: 07-20-2018 Patient encounter procedure Alfredito RajCameron Quinnfletcher Facility:[facility] Start: 05-04-2017 End: 07-07-2021 Patient encounter status Guera Sanchez [facility] Procedures Date Procedure Procedure Detail Performing Clinician Start: 08-28-2024 DEVICE INTERROGATION Ro musa Roberto MD Work Phone: Start: 08-28-2024 Ecg routine ecg w/le ast 12 lds w/i&r Joe Roberto MD Work Phone: Start: 03-11-2024 Hemoglobin glycosylated a1c Margie Saenz DO Work Phone: Start: 02-06-2024 Follow-up visit Follow-up GRISELDA ANDINO Start: 01-29-2024 Biopsy Biopsy GRISELDA Coleman JENNIFER CRAVEN Start: 01-03-2024 Follow-up visit Follow-up ALEJO BAXTER Start: 06-01-2022 Adult depression scr eening assessment Guera Sanchez [employer] Start: 09-03-2018 Colonoscopy Guera Hernandez ch [employer] Plan of Treatment Date Care Activity Detail Author Start: 08-28-2025 Tobacco Screening Tobacco Screening [facility] Start: 07-18-2025 Tobacco Screening Tobacco Screening [facility] Start: 04-11-2025 Tobacco Screening Tobacco Screening [facility] Start: 03-10-2025 End: 03-10-2025 Patient encounter procedure 03/10/2025 1:00 PM EDT Office Visit [facility] [address] [place] [phone] Margie Saenz DO [address] [place] [address] [facility] Start: 02-26-2025 End: 02-26-2025 Clinical Support [facility] Start: 01-15-2025 End: 07-18-2025 Basic metabolic 2000 panel - Serum or Plasma Basic Metabolic Panel Lab Routine Stage 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ney disease (CKD) ([facility]) Expected: 01/15/2025 (Approximate), Expires: 07/18/2025 [facility] Work Phone: Comment on above: Expected: 01/15/2025 (Approximate), Expires: 07/18/2025 Start: 01-15-2025 End: 07-18-2025 CBC panel - Blood by Automated count CBC without diff Lab Routine Stage 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ney disease (CKD) ([facility]) Expected: 01/15/2025 (Approximate), Expires: 07/18/2025 [facility] Comment on above: Expected: 01/15/2025 (Approximate), Expires: 07/18/2025 Start: 01-15-2025 End: 07-18-2025 Magnesium [Mass/volume] in Serum or Plasma Magnesium Lab Routine Stage 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ney disease (CKD) ([facility]) Expected: 01/15/2025 (Approximate), Expires: 07/18/2025 [facility] Comment on above: Expected: 01/15/2025 (Approximate), Expires: 07/18/2025 Start: 01-15-2025 End: 07-18-2025 Parathyroid Hormone, intact Parathyroid Hormone, intact Lab Routine Stage 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ney disease (CKD) ([facility]) Expected: 01/15/2025 (Approximate), Expires: 07/18/2025 [facility] Comment on above: Expected: 01/15/2025 (Approximate), Expires: 07/18/2025 Start: 01-15-2025 End: 07-18-2025 Phosphate [Mass/volume] in Serum or Plasma Phosphorus Lab Routine Stage 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ney disease (CKD) ([facility]) Expected: 01/15/2025 (Approximate), Expires: 07/18/2025 [facility] Comment on above: Expected: 01/15/2025 (Approximate), Expires: 07/18/2025 Start: 01-15-2025 End: 07-18-2025 Protein creat ratio Protein creat ratio Lab Routine Stage 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ney disease (CKD) ([facility]) Expected: 01/15/2025 (Approximate), Expires: 07/18/2025 [facility] Comment on above: Expected: 01/15/2025 (Approximate), Expires: 07/18/2025 Start: 12-10-2024 Hemoglobin A1c measurement Diabetes: Hemoglobin A1C [facility] Start: 11-26-2024 End: 11-26-2024 Patient encounter procedure 11/26/2024 1:45 PM EDT Procedure Visit [facility] [address] [place] [phone] Tanisha Molina, DPM [address] [place] [address] [facility] Start: 09-09-2024 End: 09-09-2024 Patient encounter procedure 09/09/2024 11:15 AM EDT Office Visit [facility] [address] [place] [address] Margie Saenz, [address] [place] [address] [facility] [address] Start: 08-28-2024 End: 08-28-2024 Clinical Support [facility] Start: 08-16-2024 End: 08-16-2024 Patient encounter procedure 08/16/2024 9:45 AM EST Procedure Visit [facility] [address] [place] [address] Tanisha Molina, DPM [address] [place] [address] Arrived [facility] Comment on above: Arrived Start: 08-15-2024 End: 08-15-2024 Patient encounter procedure 08/15/2024 1:45 PM EST Procedure Visit [facility] [address] [place] [address] Tanisha Molina, DPM [address] [place] [address] [facility] Start: 07-18-2024 End: 07-18-2024 Patient encounter procedure 07/18/2024 2:30 PM EST Office Visit [facility] [address] [place] [phone] Baudilio Mendoza MD [address] [place] [address] [facility] Start: 06-10-2024 Hemoglobin A1c measurement Diabetes: Hemoglobin A1C [facility] Start: 05-02-2024 End: 05-02-2024 Patient encounter procedure [facility] Comment on above: Arrived Start: 06-01-2023 Depression Screening Depression Scre ening [facility] Start: 03-18-2023 DTaP,Tdap and Td Vaccines (2 - Td or Tdap) DTaP,Tdap and Td Vaccines (2 - Td or Tdap) [facility] Start: 09-03-2021 Screening for malign ant neoplasm of colon Colonoscopy [facility] Start: 2013 Fall Risk Screening Fall Risk Screen ing [facility] Start: 1998 Administration of varicella zoster vaccine Zoster (Shingles) Vaccine (1 of 2) [facility] Start: 12-01-1967 Urine screening for protein Diabetes: Urine Protein Screening [facility] Start: 1958 Glaucoma screening Diabetes: R etinopathy Screening [facility] Start: 1948 Glaucoma screening Diabetic Op hthalmology Exam [facility] Start: 1948 Screening for malign ant neoplasm of colon [facility] End: 07-18-2025 Urinalysis Urinalysis Lab Routine Stage 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ney disease (CKD) ([facility]) 1 Occurrences starting 07/18/2024 until 07/18/2025 [facility] Comment on above: 1 Occurrences starti ng 07/18/2024 until 07/18/2025 Immunizations Immunization Date Immunization Notes Care Provider Fa ran 04-10-2024 influenza, high dose seasonal, preservative-free Tanisha Molina DPM Work Phone: [facility] 06-02-2023 Pneumococcal Conjuga te PCV 20 Margie Petznick DO Work Phone: [facility] 05-11-2023 Influenza, injectabl e, Madin [place] Canine Kidney, preservative free, quadrivalent Margie Petznick DO Work Phone: [facility] 04-13-2022 Influenza, injectabl e, Madin [place] Canine Kidney, preservative free, quadrivalent Margie Petznick DO Work Phone: [facility] 04-20-2021 influenza, injectabl e, quadrivalent, preservative free Margie Petznick DO Work Phone: [facility] 05-08-2020 Influenza, injectabl e, Madin [place] Canine Kidney, preservative free, quadrivalent Magrie Petznick DO Work Phone: [facility] 05-08-2020 pneumococcal polysaccharide vaccine, 23 valent Margie Petznick DO Work Phone: [facility] 01-02-2017 pneumococcal polysaccharide vaccine, 23 valent Margie Petznick DO Work Phone: [facility] 07-04-2016 pneumococcal polysaccharide vaccine, 23 valent Margie Petznick DO Work Phone: [facility] 03-18-2013 tetanus toxoid, redu paola diphtheria toxoid, and acellular pertussis vaccine, adsorbed Margie Petznick DO Work Phone: [facility] Payers Date Payer Category Payer Medicaid [id number] 2022 Medicare FORMERLY [facility] MEDICARE ADVANTAGE FORMERLY [facility] MEDICARE ADVANTAGE [id number] 2022-Present [address] [place] [address] [id number] 2022 Medicare (Managed Care) [facility] Member Subscriber Plan / Payer (Effective 2022-Present) Name: Dayanna Grimm Relation to Subscriber: Self Name: Dayanna Grimm Payer ID: Not on file Group ID: [id number] Type: Not on file Address: [address] [place] [id number] 2022 Medicare HMO [employer] MEDICARE [id number] 2018 Medicare [id number] 1959 Medicaid [id number] 1959 Unknown [id number] 1948 Unknown [id number] 2.840.1.714765.3.579.2. 727 1948 Unknown [id number] 2.840.1.922250.3.579.2. 593 1948 Unknown [id number] 2.840.1.223449.3.579.2. 718 1948 Unknown [id number] 2.840.1.515043.3.579.2. 718 1948 Unknown [id number] 2.840.1.336117.3.579.2. 128 1948 Unknown [id number] 2.16840.1.445373.3.579.2. 1285 1948 Unknown [id number] 2.16840.1.261258.3.579.2. 128 1948 Unknown [id number] 2.16840.1.475474.3.579.2. 1285 1948 Unknown [id number] 2.840.1.827751.3.579.2. 1285 1948 Unknown [id number] 2.840.1.685195.3.579.2. 1285 1948 Unknown [id number] 2.840.1.687372.3.579.2. 1285 1948 Unknown [id number] 2.840.1.262393.3.579.2. 1285 1948 Unknown [id number] 2.840.1.892323.3.579.2. 1285 1948 Unknown [id number] 2.0.1.751014.3.579.2. 1285 1948 Unknown [id number] 2.0.1.165863.3.579.2. 1285 1948 Unknown [id number] 2.840.1.619764.3.579.2. 1285 1948 Unknown [id number] 2.0.1.455821.3.579.2. 1285 1948 Unknown [id number] 2.840.1.450842.3.579.2. 1285 1948 Unknown [id number] .0.1.546311.3.579.2. 1285 1948 Unknown [id number] .840.1.336629.3.579.2. 1285 1948 Unknown [id number] .840.1.782833.3.579.2. 1285 1948 Unknown [id number] 2.840.1.281994.3.579.2. 1285 1948 Unknown [id number] 2.840.1.678792.3.579.2. 1285 1948 Unknown [id number] 2.16.840.1.696741.3.579.2. 128 1948 Unknown [id number] 2.16.840.1.323971.3.579.2. 1285 1948 Unknown [id number] 2.16.840.1.484794.3.579.2. 1285 1948 Unknown [id number] 2.16.840.1.105478.3.579.2. 1285 1948 Unknown [id number] 2.16.840.1.719230.3.579.2. 1258 1948 Unknown [id number] 2.16.840.1.083686.3.579.2. 1258 1948 Unknown [id number] 2.16.840.1.966561.3.579.2. 1258 1948 Unknown [id number] 2.16840.1.936822.3.579.2. 1258 1948 Unknown [id number] 2.16.840.1.485719.3.579.2. 1258 1948 Unknown [id number] 2.16.840.1.260950.3.579.2. 1258 1948 Unknown [id number] 2.16.840.1.543363.3.579.2. 1258 1948 Unknown [id number] 2.16.840.1.998778.3.579.2. 1258 1948 Unknown [id number] 2.16.840.1.966816.3.579.2. 1258 1948 Unknown [id number] 2.16.840.1.906376.3.579.2. 1258 1948 Unknown [id number] 2.16.840.1.378526.3.579.2. 1258 1948 Unknown [id number] 2.16.840.1.584314.3.579.2. 1258 1948 Unknown [id number] 2.16.840.1.552415.3.579.2. 1259 Social History Date Type Detail Facility Start: 06-01-2022 End: 12-21-2022 Tobacco smoking status NHIS Never smoked tobacco [facility] Start: 06-01-2022 End: 12-21-2022 Tobacco use and exposure Smokeless tobacco non-user [facility] Start: 03-11-2024 End: 09-09-2024 Alcoholic beverage intake Ex-drinker (finding) [facility] Start: 06-01-2022 End: 03-11-2024 History of Social function [facility] Start: 06-01-2022 End: 03-11-2024 Tobacco use panel [facility] Start: 1950 Sex assigned at Not on file N [facility] Start: 04-11-2024 End: 08-28-2024 Alcoholic beverage intake Lifetime non-drinker (finding) [facility] Do you belong to any clubs or organizations such as evangelical groups, unions, fraternal or athletic groups, or school groups? No [facility] Are you now , , , , never or living with a partner? [facility] How often to you hav e a drink containing alcohol? Never [facility] How many standard dr inks containing alcohol do you have on a typical day? Patient does not drink [facility] How hard is it for y ou to pay for the very basics like food, housing, medical care, and heating Somewhat hard [facility] Do you feel stress - tense, restless, nervous, or anxious, or unable to sleep at night because your mind is troubled all the time - these days [OSQ] Rather much [facility] Start: 02-05-2015 Sex Female (finding) [facility] Medical Equipment Procedure Code Equipment Code Equipment Original Text Equipment Identifier Dates [id number] Start: 12-08-2019 Brng Hum 36-44mm Std Shldr - [id number] - [id number] Start: 05-17-2017 Comment on above: Description: use wit h 36 mm glenosphere humeral bearing, 44 mm ArComXL Cmnt Bn Bio 40gm Rpl [id number] - [id number] Start: 05-21-2020 Bsplt Parker Cmprh 25mm Mn Tpr - [id number] - [id number] Start: 05-17-2017 Comment on above: Description: 25 mm g lenosphere mini baseplate with taper adapter Bsplt Parker 36mm Cmprh - [id number] - [id number] Start: 05-17-2017 Stm Hum 83mm 9mm Cmprh Por Mn - [id number] - [id number] Start: 05-17-2017 Ty Hum Cmprh 44m m Cocr Std - [id number] - [id number] Start: 05-17-2017 Shldr Zb Rvrs Comp Gln Frac St - [id number] Start: 05-17-2017 Hd Fem 36mm -3.5mm 06/15 Vrsy Rpl [id number] - Sna - [id number] Start: 10-18-2017 Shl Actb 50mm Hi p Prm Mdlr Ch Rpl [id number] - Sna - [id number] Start: 10-18-2017 Linr Actb 50/52/54mm 36mm Std Rpl [id number] - Sna - [id number] Start: 10-18-2017 Stm Fem 129d 1 44mm 14 B - Sna - [id number] Start: 10-18-2017 Stm Fem 4 Gnss I i Npor Lt Kn - [id number] Start: 05-21-2020 Ins Tib 3-4 15mm Kn Xlpe Dsh - [id number] Start: 05-21-2020 Kn Sn Std Ps Cr Inc Mtn Construct - [id number] Start: 05-21-2020 Cardiac pacemaker, device (physical object) ([id number]) Pacemaker-05/06/20 11 [id number] Start: 05-06-2011 Comment on above: Description: Pacemak er only. With magnet use for surgery it will pace asynchronously at 100 beats/min and then resume settings when magnet removed. Bsplt Tib 3 Lt K n Gns2 Ti Npor - [id number] Start: 05-21-2020 Scr Bn 25mm 6.5m m Cntr Hex - Sn/A - [id number]_imp Start: 05-17-2017 Adriel Screw 4. 5 X 35 Mm - [id number] - [id number]_imp Start: 05-17-2017 Comment on above: Description: 4.75 mm 35 mm lemgth, 3.5 mm hex fixed locking screw Fixed Locking Screw [id number], [id number]_imp FDA Start: 05-17-2017 Comment on above: Description: 4.75 mm 25 mm lemgth, 3.5 mm hex fixed locking screw Scr Hip Prince St Tiv 25mm 6.5mm Rpl [id number] + [id number] - Sna - [id number] Start: 10-18-[address] Tiv 25mm 6.5mm Rpl [id number] + [id number] - Sna - [id number] Start: 10-18-2017 Scr Bn Prince 30mm 6.5mm Hip St Rpl [id number] + [id number] + [id number] - Sna - [id number]_imp Start: 10-18-2017 Locking Screw [id number], [id number]_imp FDA Start: 05-17-2017 Comment on above: Description: 4.75 mm 35 mm lemgth, 3.5 mm hex fixed locking screw Goals Date Patient Goal Desired Activity /State Personal health goal Comment on above: Formatting of this n ote might be different from the original. Evaluation of progress towards goal: Safe dc transition home with spouse to son's home. Clinical Notes 10-30-2023 to 09-11-2024 Telephone Encounter - Catrachita Russell RN - 09/11/2024 4:09 PM EDTTelephone Encounter - Catrachita Russell RN - 09/11/2024 4:09 PM EDTTelephone Encounter - Allegra Donis - 09/09/2024 1:58 PM EDT Note Date & Type Note Facility 09-11-2024 Miscellaneous Notes Images from the original note were not included. Preop OV 08/28/2024, clearance given but letter not sent. Letter created and faxed to [facility] requesting documented in this encounter [facility] 09-11-2024 Telephone encounter Note Images from the original note were not included. Preop OV 08/28/2024, clearance given but letter not sent. Letter created and faxed to [facility] requesting [facility] 09-09-2024 Telephone encounter Note Pt called to inquire if anyone found a ring with a purple setting. Checked the exam room, checkout area, and checked with front end application developer. Informed pt that we didn't find it but would call back if it turned up. [facility] 09-09-2024 Miscellaneous Notes Pt called to inquire if anyone found a ring with a purple setting. Checked the exam room, checkout area, and checked with front end application developer. Informed pt that we didn't find it but would call back if it turned up. documented in this encounter [facility] 08-28-2024 History of Present illness Narrative Dayanna Grimm Date of visit: 08/28/2024 Date of : 1950 Age: 73 y.o. Patient Active Problem List Diagnosis Nocturnal hypoxia ANA (obstructive sleep apnea) Hypothyroid Localized osteoarthritis of knees, bilateral Osteoarthritis of right hip Acute idiopathic pericarditis HTN (hypertension) Presence of cardiac pacemaker- [employer] DM type 2 (diabetes mellitus, type 2) ([facility]) Secondary pulmonary hypertension Rotator cuff tear arthropathy, left Primary osteoarthritis of right hip Severe obesity (BMI 35.0-39.9) with comorbidity ([facility]) Disc displacement, lumbar VPB (ventricular premature beat) [...] Chronic heart failure with preserved ejection fraction ([facility]) Allergies Allergen Reactions Atorvastatin Other (See Comments) [...] NEEDED ONETOUCH DELICA PLUS LANCET 33 gauge [facility] ONETOUCH VERIO TEST STRIPS strip USE 1 [...] CK ALSO L/S RBP, PREOP [facility] L4-S1 DECOMPRESSION AND FUSION, FORMS SCANNED TO MEDIA, SCHED W/PT History of Present Illness Was here [...] History: Diagnosis Date Anxiety Asthma Atrial fibrillation ([facility]) Bradycardia Cardiac pacemaker Carpal tunnel syndrome Degenerative arthritis Depression 06/2018 started oral antidep. DM type 2 (diabetes mellitus, type 2) ([facility]) Fractures x4 vertebrea GERD (gastroesophageal reflux disease) [...] Performed by Roberto Carlos Watts MD at [facility] Right ankle HERNIA REPAIR HYSTERECTOMY INJECTION ANESTHETIC AGENT LUMBAR / THORACIC also to hips and knees INJECTION BLOCK NERVE MEDIAL BRANCH BILAT L 4/5,5/1 Bilateral 10/09/2020 Performed by Jonathan Baugh MD at [facility] INJECTION CAUDAL EPIDURAL WITH CATHETER, STEROID N/A 10/29/2018 Performed by Jonathan Baugh MD at [facility] INJECTION LARGE JOINT BURSA HIP Right 02/17/2017 Performed by Jonathan Baugh MD at [facility] INJECTION MEDIAL BRANCH NERVE BLOCK Bilateral L 4/5, 5/1 Bilateral 05/03/2019 Performed by Jonathan Baugh MD at [facility] OOPHORECTOMY ORIF ANKLE FRACTURE Right ORTHOPEDIC SURGERY Left 06/2018 left leg brace RELEASE TRIGGER FINGER Left 10/12/2022 Performed by Paris Stone DO at [facility] RELEASE TRIGGER FINGER Right 09/22/2022 Performed by Paris Stone DO at [facility] RELEASE TRIGGER FINGER Left 12/19/2018 Performed by Paris Stone DO at [facility] RELEASE TRIGGER FINGER Right 02/14/2018 Performed by Paris Stone DO at [facility] REPLACEMENT TOTAL JOINT HIP Right 10/18/2017 Performed by Paris Stone DO at [facility] REPLACEMENT TOTAL JOINT KNEE Left 05/21/2020 Performed by Guillermo Brown MD at [facility] REVERSE ARTHROPLASTY TOTAL SHOULDER Left 05/17/2017 Performed by Paris Stone DO at [facility] SHOULDER SURGERY Left x2 Family History Problem [...] 0 min Stress: Stress Concern Present (06/01/2022) [place] [employer] - Occupational Stress Questionnaire Feeling of Stress : Rather much Social Connections: Moderately Isolated (06/01/2022) Social Connection and Isolation Panel [NHANES] Frequency of Communication with Friends and Family: Three times a week Frequency of Social Gatherings with Friends and Family: Three times a week Attends [employer] Services: Never Active Member of Clubs or [...] - Device Interrogation 2. Persistent atrial fibrillation (CMS-HCC) - POCT EKG 3. Primary hypertension 4. Chronic heart failure with preserved ejection fraction (CMS-HCC) 5. Preop cardiovascular exam Longstanding persistent AFib [...] REYES MD Referring Physician: Naya Travis MD [address] [place] [address] [facility] History of Present illness Narrative I agree with the findings in the scanned document. documented in this encounter [facility] 08-27-2024 Miscellaneous Notes Called patient to remind them to bring their most current copy of their medication list with them to their appt. Patient verbalizes understanding. documented in this encounter [facility] 08-27-2024 Telephone encounter Note Called patient to remind them to bring their most current copy of their medication list with them to their appt. Patient verbalizes understanding. [facility] 08-16-2024 History of Present illness Narrative Images [...] Wendi 2nd Gen 32G X 4 MM [facility], USE 1 PEN NEEDLE SUBCUTANEOUSLY ONCE DAILY, Disp: , Rfl: cholecalciferol (Vitamin D-3) 1.25 MG (60131 UT) capsule, Take 1 capsule by mouth [...] mL, Rfl: 3 Lancets (OneTouch Delica Plus [id number]) [facility], USE 1 TO CHECK GLUCOSE THREE TIMES [...] Mood normal. Behavior: Behavior normal. Modifier: Q9, 65752 Assessment/Plan ICD-10-CM 1. Type II or unspecified type diabetes mellitus with neurological manifestations, not stated as uncontrolled(250.60) ([facility]) E11.49 2. Onychomycosis B35.1 All nails debrided, [...] Tanisha Molina DPM documented in this encounter [facility] 07-18-2024 History of Present illness [...] have back surgery with Dr. Verma at [facility]. She tells me she also has a [...] Performed by Roberto Carlos Watts MD at [facility] Right ankle HERNIA REPAIR HYSTERECTOMY INJECTION ANESTHETIC AGENT LUMBAR / THORACIC also to hips and knees INJECTION BLOCK NERVE MEDIAL BRANCH BILAT L 4/5,5/1 Bilateral 10/09/2020 Performed by Jonathan Baugh MD at [facility] INJECTION CAUDAL EPIDURAL WITH CATHETER, STEROID N/A 10/29/2018 Performed by Jonathan Baugh MD at [facility] INJECTION LARGE JOINT BURSA HIP Right 02/17/2017 Performed by Jonathan Baugh MD at [facility] INJECTION MEDIAL BRANCH NERVE BLOCK Bilateral L 4/5, 5/1 Bilateral 05/03/2019 Performed by Jonathan Baugh MD at [facility] OOPHORECTOMY ORIF ANKLE FRACTURE Right ORTHOPEDIC SURGERY Left 06/2018 left leg brace RELEASE TRIGGER FINGER Left 10/12/2022 Performed by Paris Stone DO at [facility] RELEASE TRIGGER FINGER Right 09/22/2022 Performed by Paris Stone DO at [facility] RELEASE TRIGGER FINGER Left 12/19/2018 Performed by Paris Stone DO at [facility] RELEASE TRIGGER FINGER Right 02/14/2018 Performed by Paris Stone DO at [facility] REPLACEMENT TOTAL JOINT HIP Right 10/18/2017 Performed by Paris Stone DO at [facility] REPLACEMENT TOTAL JOINT KNEE Left 05/21/2020 Performed by Guillermo Brown MD at [facility] REVERSE ARTHROPLASTY TOTAL SHOULDER Left 05/17/2017 Performed by Paris Stone DO at [facility] SHOULDER SURGERY Left x2 Social History: Social [...] 0 min Stress: Stress Concern Present (06/01/2022) [place] [employer] - Occupational Stress Questionnaire Feeling of Stress : Rather much Social Connections: Moderately Isolated (06/01/2022) Social Connection and Isolation Panel [NHANES] Frequency of Communication with Friends and Family: Three times a week Frequency of Social Gatherings with Friends and Family: Three times a week Attends [employer] Services: Never Active Member of Clubs or [...] NEEDED ONETOUCH DELICA PLUS LANCET 33 gauge [facility] ONETOUCH VERIO TEST STRIPS strip USE 1 [...] Anemia Studies: Lab Results Component Value Date [id number] 01/30/2017 [facility]: Lab [...] of your patients! Please contact me at [phone] (Office) or [phone] (Answering service) with any questions. BAUDILIO MENDOZA MD [facility] This note was created with the assistance of a speech-recognition program. Although the intention is to generate a document that actually reflects the content of the visit, no guarantees can be provided that every mistake has been identified and corrected by editing. BAUDILIO MENDOZA MD,PhD FACP [facility] ANY QUESTIONS FEEL FREE TO CALL: 1. OFFICE [phone] 2. ANSWERING SERVICE: [phone] documented in this encounter [facility] 07-18-2024 Miscellaneous Notes Addended by: BAUDILIO MENDOZA on: 07/18/2024 02:47 PM Modules accepted: Orders documented in this encounter [facility] 07-18-2024 Note Addended by: BAUDILIO VIRAMONTES on: 07/18/2024 02:47 PM Modules accepted: Orders [facility] 07-11-2024 Miscellaneous Notes Left message for patient to call the office back to confirm upcoming appointment 07/18 at 2:[address] Mendoza in [place]. Also stated that patient needs to get labs done prior to upcoming appointment documented in this encounter [facility] 07-11-2024 Telephone encounter Note Left message for patient to call the office back to confirm upcoming appointment 07/18 at 2:[address] Mendoza in [place]. Also stated that patient needs to get labs done prior to upcoming appointment [facility] 05-02-2024 History of Present illness Narrative Images from the original note were not included. Subjective Patient ID: Dayanna Grimm is a 73 y.o. female who presents for DM Foot Care (PCP: Chintan CARRERO 03/11/24, A1C: 6.1, BS: 95). HPI [...] Wendi 2nd Gen 32G X 4 MM misc, USE 1 PEN NEEDLE SUBCUTANEOUSLY ONCE DAILY, Disp: , Rfl: cholecalciferol (Vitamin D-3) 1.25 MG (17059 UT) capsule, Take 1 capsule by mouth [...] mL, Rfl: 3 Lancets (OneTouch Delica Plus [id number]) misc, USE 1 TO CHECK GLUCOSE THREE TIMES [...] Rocha TOTAL SHOULDER ARTHROPLASTY Left 05/17/2017 Dr Chase TRIGGER FINGER RELEASE Left 12/19/2018 TRIGGER FINGER [...] Mood normal. Behavior: Behavior normal. Modifier: Q9, 46430 Assessment/Plan ICD-10-CM 1. Type II or unspecified type diabetes mellitus with neurological manifestations, not stated as uncontrolled(250.60) ([facility]) E11.49 2. Onychomycosis B35.1 3. Ingrown nail [...] Tanisha Molina DPM documented in this encounter [facility] 03-11-2024 History of Present illness Narrative Associated Problem(s): Type 2 diabetes mellitus with stage 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ney disease, without long-term current use of insulin ([facility]) ([facility]) During the appointment today all pertinent labs, [...] Claustrophobia (CMS/HCC) Degenerative arthritis Anxiety and depression (CMS/HCC) Difficulty walking Disorder of sacrum Fractures GERD (gastroesophageal reflux disease) Acquired hammer toe of left foot Acquired hammer toe of right foot History of adenomatous polyp of colon Hyperlipidemia (CMS/HCC) HTN (hypertension) (CMS/HCC) Hypothyroid (CMS/HCC) Internal derangement of right shoulder Localized, 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 Disc displacement, lumbar Lumbar degenerative disc disease Lumbar spondylosis Lumbosacral spondylosis without myelopathy Migraine (CMS/HCC) Obese Neurogenic pain Nocturnal hypoxia Sleep apnea Osteoarthritis of right hip Other chronic pain Palpitations Paroxysmal atrial fibrillation ([facility]) Peripheral vertigo Polyneuropathy Presence of cardiac pacemaker [...] long-term current use of insulin ([facility]) ([facility]) Abnormal kidney function Chronic heart failure with preserved ejection fraction ([facility]) Neuropathy Airway hyperreactivity ([facility]) Anemia Head pain cephalgia CKD (chronic kidney disease) stage 3, GFR 30-59 ml/min ([facility]) ([facility]) Diverticulosis of colon Fatigue Vitamin B deficiency [...] Other reaction(s): Intolerance-unknown Other reaction(s): Intolerance-unknown Synopsis [facility] 03/11/2024 Antidiabetic medications Insulin Lispro INJECT SUBCUTANEOUSLY [...] without long-term current use of insulin (HCC) ([facility]) During the appointment today all pertinent labs, [...] WENDI 2ND GEN 32G X 4 MM [facility] USE 1 PEN NEEDLE SUBCUTANEOUSLY ONCE DAILY CHOLECALCIFEROL (VITAMIN D-3) 1.25 MG (97027 UT) CAPSULE Take 1 capsule by mouth 1 (one) time per week. CLOTRIMAZOLE (LOTRIMIN) 1 % CREAM Apply 1 application topically in the morning and 1 application before bedtime. ESOMEPRAZOLE (NEXIUM) [address] CAPSULE Take 20 mg by mouth Daily GLUCOSE BLOOD ([employer] BiotechnologyTOUCH VERIO) TEST STRIP Check bg levels 3 times a day INSULIN LISPRO (HUMALOG KWIKPEN) 100 UNIT/ML INJECTION INJECT SUBCUTANEOUSLY PER SLIDING SCALE DIRECTED 1:30 > 150 MG/DL ( max 30 units a day) for 30 days LANCETS (ONETOUCH DELICA PLUS [id number]) [facility] USE 1 TO CHECK GLUCOSE THREE TIMES [...] the patient today. documented in this encounter [facility] 10-31-2023 Note [id number] [facility] 10-30-2023 Note [facility] SURGERY Clinical Discharge Summary PERSON INFORMATION Name DAYANNA GRIMM Age 72 Years 1950 Sex FEMALE Language South African PCP Angy CHAPMAN, Naya Ulrich Marital Status Med Service Ambulatory Surgery Acct# Arrival 10/30/2023 10:44:52 Visit Reason Surgery-Trigger finger release Acuity LOS 046 01:26 Address: [address] [place] [id number] Comment: PROVIDER INFORMATION VITALS INFORMATION Vital Sign [...] day. insulin lispro (more content not included)... [facility] 10-30-2023 Note Procedure: Release o f [...] on: 10/30/2023 12:12 EDT] Paris Stone DO [facility] Evaluation note Diagnosis Class 2 severe obesity due to excess calories with serious comorbidity and body mass index (BMI) of 35.0 to 35.9 in adult ([facility])- Primary Type 2 diabetes with nephropathy ([facility]) Type 2 diabetes mellitus with stage 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ney disease, without long-term current use of insulin ([facility]) ([facility]) Type 2 diabetes mellitus without complication, with long-term current use of insulin ([facility]) Type 2 diabetes mellitus with stage 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ney disease, without long-term current use of insulin ([facility]) ([facility]) Type 2 diabetes mellitus with stage 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ney disease, without long-term current use of insulin ([facility]) ([facility]) Type II or unspecified type diabetes mellitus with neurological manifestations, not stated as uncontrolled(250.60) ([facility])- Primary Type II or unspecified type diabetes mellitus with neurological manifestations, not stated as uncontrolled Onychomycosis Dermatophytosis of nail Ingrown nail Ingrowing nail Hammer toes of both feet documented in this encounter [facility] Healthcare[facility]* Diagnosis Type 2 diabetes mellitus with stage 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ney disease, without long-term current use of insulin ([facility]) ([facility]) documented in [facility] encounter [facility] Healthcare[facility] note* Diagnosis Stage 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ney disease (CKD) ([facility])- Primary documented in this encounter [facility]* Diagnosis Class 2 severe obesity due to excess calories with serious comorbidity and body mass index (BMI) of 35.0 to 35.9 in adult ([facility])- Primary Type 2 diabetes with nephropathy ([facility]) Type 2 diabetes mellitus with stage 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ney disease, without long-term current use of insulin (HCC) ([facility]) Type 2 diabetes mellitus without complication, with long-term current use of insulin ([facility]) Type 2 diabetes mellitus with stage 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ney disease, without long-term current use of insulin (HCC) ([facility]) Type 2 diabetes mellitus with stage 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ney disease, without long-term current use of insulin ([facility]) ([facility]) Type II or unspecified type diabetes mellitus with neurological manifestations, not stated as uncontrolled(250.60) ([facility])- Primary Type II or unspecified type diabetes mellitus with neurological manifestations, not stated as uncontrolled Onychomycosis Dermatophytosis of nail documented in this encounter [facility] HealthcareEvaluation note* Diagnosis Persistent atrial fibrillation ([facility])- Primary Atrial fibrillation Presence of cardiac pacemaker Cardiac pacemaker in situ Primary hypertension Unspecified essential hypertension Chronic heart failure with preserved ejection fraction ([facility]) Preop cardiovascular exam Pre-operative cardiovascular examination documented in this encounter [facility]* Diagnosis Presence of cardiac pacemaker- [employer]- Primary Cardiac pacemaker in situ [facility] this [facility] filedocumented in this encounter [facility] on filedocumented in this encounter [facility] filedocumented in this encounter [facility] on filedocumented in this encounter [facility]Not on filedocumented in this encounter [facility] System[facility]ructionsNot on filedocumented in this encounter [facility] [employer] [facility] Summary Purpose Family History No Family [...] section and content) DATE CREATED AUTHOR 07/27/2018 Bonilla Farooq [facility] DATE CREATED AUTHOR AUTHOR'S ORGANIZ ATION 07/12/2022 [facility] DATE CREATED AUTHOR AUTHOR'S ORGANIZ ATION 12/23/2023 [facility] DATE CREATED AUTHOR AUTHOR'S ORGANIZ ATION 01/04/2024 [facility] DATE CREATED AUTHOR AUTHOR'S ORGANIZ ATION 02/08/2024 [facility] DATE CREATED AUTHOR AUTHOR'S ORGANIZ ATION 08/30/2024 [facility] DATE CREATED AUTHOR AUTHOR'S ORGANIZ ATION 09/10/2024 [facility] d[facility] Specialists [employer] Care Teams (unrecognized sec tion and content) Cartridge Loader Relationship Specialty Start Date End Date Naya Travis MD [address] [place] [address] PCP - General Pediatrics 12/22/22 Cartridge Loader Relationship Specialty Start Date End Date Naya Travis MD [address] [place], [place] [id number] PCP - General Pediatrics 12/22/22 Cartridge Loader Relationship Specialty Start Date End Date Naya Travis MD [address] [place], [place] [id number] PCP - General Pediatrics 12/22/22 Cartridge Loader Relationship Specialty Start Date End Date Naya Travis MD [address] [place], [place] [id number] PCP - General Family Medicine 09/29/17 Cartridge Loader Relationship Specialty Start Date End Date Anahi Reyes MD [address] [place] [address] PCP - General Internal Medicine 07/15/24 Cartridge Loader Relationship Specialty Start Date End Date Anahi Reyes MD [address] [place] [address] PCP - General Internal Medicine 07/15/24 Cartridge Loader Relationship Specialty Start Date End Date Margie Saenz DO [address] [facility] [address] [place] [address] PCP - General Family Medicine 08/16/24 Cartridge Loader Relationship Specialty Start Date End Date Anahi Reyes MD [address] [place] [address] PCP - General Internal Medicine 07/15/24 Cartridge Loader Relationship Specialty Start Date End Date Anahi Reyes MD [address] [place] [address] PCP - General Internal Medicine 07/15/24 Cartridge Loader Relationship Specialty Start Date End Date Anaih Reyes MD [address] [place] [address] PCP - General Internal Medicine 07/15/24 Cartridge Loader Relationship Specialty Start Date End Date Naya Travis MD [address] [place] [address] PCP - General Pediatrics 09/09/24 Cartridge Loader Relationship Specialty Start Date End Date Anahi Reyes MD [address] [place] [address] PCP - General Internal Medicine 07/15/24 Reason for Visit (unrecogniz ed section and content) Reason Comments DM Foot Care PCP: Chintan LV 0 03/26, A1C: 6.1, BS: 95 Reason Comments Diabetes Reason Onset Date Comments Med Refill 07/24/2024 Reason Comments DM Foot Care Pt is here today for diabetic foot care, she states sometimes her nails bother her. BS: 91 A1C: 6.1LV Dr. Saenz 03-11-2024SS: 8.5W Reason Comments Pre-op Exam EST PT F/U 6 MS PPM CK ALSO L/S RBP, PREOP [facility] L4-S1 DECOMPRESSION AND FUSION, FORMS SCANNED TO [facility], SCHED W/PT Reason Comments Device Check FOR [...] BE BASED ON THE PRIMARY CLINICAL RECORDS. [employer] provides no warranty or guarantee of the accuracy or completeness of information in this document.
[2024-09-20] MEDS: LACTATED RINGER'S SOLUTION 1,000 ML 50 ML IV (09:04)
--- NOTE | 2024-09-20 09:10 | PC.NURSE ---
([id number]) Patient is very emotional. Patient states that her daughter has Stage 4 cancer and isn't doing well
[2024-09-20] MEDS: VANCOMYCIN HCL 1,000 MG in 0.9 % SODIUM CHLORIDE 250 ML 250 MG IV (09:14)
--- NOTE | 2024-09-20 09:49 | P.ON_ITS ---
Surgery Operative Note Operative Note Procedure Date: 09/20/24 Time Out Performed: yes Pre-op Diagnosis: 1. L4-S1 degenerative disc disease with discogenic back pain and leg pain 2. L4-S1 lumbar stenosis with radiculopathy 3. Obesity with BMI of 34 Post-op Diagnosis: same as pre-op Procedures performed: 1. ?L4-S1 bilateral laminectomy, partial medial facetectomies and foraminotomies of L4, L5, and S1 nerve roots 2. ?L4-S1 posterior spinal fusion. 3. ?L4-5 posterior spinal instrumentation, Goblin, Medynus instrumentation. 4. ?Use of local autograft bone Anesthesia: NICOL Primary Surgeon: Shayne Rey Complications: Durotomy Findings: Stenosis Specimens: None Drains: Hemovac Indications for Procedures: INDICATIONS: ?This is a 73-year-old female with refractory back and bilateral leg pain with tingling from degenerative disc disease and lumbar stenosis from L4-S1. ?Patient has failed full conservative therapy including medication management, physical therapy, and injections with pain management. Due to the persistence of symptoms and reduction in the ADLs, patient elected surgical treatment.?Patient, therefore, understood indications for the surgery as well as its risks, benefits, and alternatives. ?These risks include but are not limited to paralysis, infection, hematoma, dural tear, nerve root injury, nonunion, DVT/PE, stroke, AK, etc. ?All questions were answered. Informed consent was obtained. Detailed description of Procedure: OPERATIVE PROCEDURE: ?The patient was taken to the operating room by the Anesthesiology Service and had satisfactory general anesthesia.?A first- generation cephalosporin was given within 1 hour of surgical incision. ?2 gm of cefazolin was given IV. ?Venous thromboembolic prophylaxis was performed with sequential devices. Fox was placed using standard sterile technique. The patient was then positioned prone on a standard OSI frame with the abdomen hanging free and all bony prominences well padded. ?The low back was then prepped and draped in its entirety in the usual sterile fashion. Before incision, a formal timeout was taken per protocol. We next took a midline longitudinal approach and performed subperiosteal dissection out to the tips of the transverse processes of L4, L5, and S1. Intraoperative localization of level was confirmed using anatomic landmarks. ?We then began the laminectomy as well as decompression by removing the spinous process of L4 and L5. ?We entered the spinal canal, resecting the ligamentum flavum in its entirety over this region. Patient had significant stenosis in the lateral recess and neural foramina.?Partial medial facetectomy was then performed with an osteotome to get lateral to the facet overhang, but just medial to the pedicles and nerve roots. ?Kerrison's were then used to perform foraminotomies of the L4, L5, and S1 nerve roots bilaterally. In this way, we completed decompression at L4-5 and L5-S1 with foraminotomies of the L4, L5, and S1 nerve roots bilaterally. A small poke hole durotomy occurred during decompression centrally at L5-S1. This was tightly repaired using a 5-0 Prolene. Water tight seal achieved. Satisfied with this, we then turned our attention to perform spinal instrumentation and posterolateral fusion. Using anatomic landmarks and guided by direct visualization of the pedicles from within the canal, pedicle screws were placed bilaterally at L4, L5. ?All the screws were completely interosseous as determined by bony palpation. ?Before the screws were inserted, the transverse processes were decorticated with a high-speed bur at L4, L5 and S1. ?Local autograft bone was placed over the decorticated elements bilaterally from L4-S1. ?The screws were then inserted which were under tapped by 1 mm. ?Two rods were placed from L4-5, set screws engaged and tightened down to their final torque. Everything was tightened down. ?A very rigid construct was achieved. ?Final x-ray was taken, demonstrated good position of the spine and all of the implants. Satisfied with this, we then achieved hemostasis. ?We then copiously irrigated the wound. ?We then inserted a Hemovac drain through a separate stab incision. ?The wound was then closed in layer with interrupted 1 and 2-0 Vicryl sutures and dusted with vancomycin powder. ?A 3-0 Monocryl was used for the skin. The skin edges were sealed with Dermabond. ?A dry sterile dressing was applied. ?The patient was then returned to the hospital bed, extubated, and taken to the recovery room in stable condition. Spinal cord monitoring remained stable throughout the operation. SALES COMMISSIONS ANALYST: ?JESUS Hooks PA-C, assisted throughout the procedure with positioning, draping, retraction, wound closure, and dressing application. POSTOPERATIVE CARE: ?The patient will be recovered in PACU and then a regular nursing floor. ??Once the drainage is low and pain is under control, patient will be discharged home per clinical indication. Patient will follow up in the office in 6 weeks. ?At that time, AP and lateral x-rays of the lumbar spine will be obtained to assess instrumentation and fusion. MODIFIER 22: ?Due to the patient's BMI greater than 30, modifier 22 will be applied due to the patient's case taking 50% longer due to poor visualization and orientation. Barbed Wire Machine Operator: Gerson Benedict
[2024-09-20 12:29] LABS: Glucometer 107 mg/dL (74-106)
[2024-09-20 12:36] LABS: Glucometer 114 mg/dL (74-106)
[2024-09-20] MEDS: VANCOMYCIN HCL 1,000 MG VIAL 1000 MG TOPICAL (12:41)
--- NOTE | 2024-09-20 13:06 | PC.NURSE ---
warm blankets and silvio hugger applied; HOB lowered; anesthesia present
[2024-09-20] MEDS: CYCLOBENZAPRINE HCL 10 MG TABLET PO (13:24)
[2024-09-20] MEDS: OXYCODONE HCL 5 MG TABLET PO ×2 (13:27→21:30)
--- NOTE | 2024-09-20 13:41 | PC.NURSE ---
needs pacemaker interrogated
--- NOTE | 2024-09-20 13:49 | PC.NURSE ---
Anesthesia discussing pain medication choices
--- NOTE | 2024-09-20 14:19 | PC.NURSE ---
Medicated with Flexeril as discussed by anesthesia
--- NOTE | 2024-09-20 14:20 | PC.NURSE ---
Medicated with oral narcotic pain medication as suggested by anesthesia
[2024-09-20] MEDS: 0.9 % SODIUM CHLORIDE 1,000 ML 100 ML IV (14:25)
--- NOTE | 2024-09-20 14:27 | PM.CN ---
Consult Note: HPI Data of Consult Requesting Physician: Tanisha Sheikh DO Primary Care Provider: Non-Staff Physician, MD Consult Narrative Reason for consult: medication management Narrative: patient is a 73 y.o white female with past medical history of Hypertension,insulin dependent type 2 diabetes, GERD, hypothyroidism, depression, Afib (takes Xarelto), and pacemaker who had a Lumbar fusion by Dr. Keller today. I am seeing her in the postoperative setting. She currently very sleepy. Has history of sleep apnea as well, requiring 3L NC oxygen since surgery. Still hypotensive, currently getting NS @100 cc/hr. Denies pain cc:: CC: Tanisha Sheikh DO Review of Systems ROS Status of ROS unobtainable due to mental status PFSH [facility] Medical History (Updated 09/20/24 @ 15:40 by Tanisha Sheikh DO) Influenza-like illness (~09/03/24) ?J11.1 - Influenza due to unidentified influenza virus with other respiratory manifestations (ICD-10) Pyelonephritis ?N12 - Tubulo-interstitial nephritis, not specified as acute or chronic (ICD-10) Fatigue ?R53.83 - Other fatigue (ICD-10) Diverticulosis ?K57.90 - Diverticulosis of intestine, part unspecified, without perforation or abscess without bleeding (ICD-10) Anemia ?D64.9 - Anemia, unspecified (ICD-10) Chronic heart failure ?I50.9 - Heart failure, unspecified (ICD-10) Varicose veins of both lower extremities ?I83.93 - Asymptomatic varicose veins of bilateral lower extremities (ICD-10) Sinus infection ?J32.9 - Chronic sinusitis, unspecified (ICD-10) Seasonal allergies ?J30.2 - Other seasonal allergic rhinitis (ICD-10) Carpal tunnel syndrome ?G56.00 - Carpal tunnel syndrome, unspecified upper limb (ICD-10) Thoracic back pain ?M54.6 - Pain in thoracic spine (ICD-10) Hip bursitis ?M70.70 - Other bursitis of hip, unspecified hip (ICD-10) Mitral valve insufficiency ?I34.0 - Nonrheumatic mitral (valve) insufficiency (ICD-10) Tricuspid valve insufficiency ?I07.1 - Rheumatic tricuspid insufficiency (ICD-10) Lumbar spondylosis ?M47.816 - Spondylosis without myelopathy or radiculopathy, lumbar region (ICD-10) Vertigo ?R42 - Dizziness and giddiness (ICD-10) Polyp of colon ?K63.5 - Polyp of colon (ICD-10) Change in bowel habit ?R19.4 - Change in bowel habit (ICD-10) Rectal bleeding ?K62.5 - Hemorrhage of anus and rectum (ICD-10) Ventricular premature beats ?I49.3 - Ventricular premature depolarization (ICD-10) Disc displacement, lumbar ?M51.26 - Other intervertebral disc displacement, lumbar region (ICD-10) Left rotator cuff tear arthropathy ?M75.102 - Unspecified rotator cuff tear or rupture of left shoulder, not specified as traumatic (ICD-10) ?M12.812 - Other specific arthropathies, not elsewhere classified, left shoulder (ICD-10) Secondary pulmonary hypertension Hip osteoarthritis ?M16.9 - Osteoarthritis of hip, unspecified (ICD-10) Knee osteoarthritis ?M17.9 - Osteoarthritis of knee, unspecified (ICD-10) Hypothyroidism (acquired) ?E03.9 - Hypothyroidism, unspecified (ICD-10) Obstructive sleep apnea ?G47.33 - Obstructive sleep apnea (adult) (pediatric) (ICD-10) Nocturnal hypoxia ?G47.34 - Idiopathic sleep related nonobstructive alveolar hypoventilation (ICD-10) Back pain ?M54.9 - Dorsalgia, unspecified (ICD-10) GOSS (dyspnea on exertion) ?R06.09 - Other forms of dyspnea (ICD-10) Lumbar stenosis ?M48.061 - Spinal stenosis, lumbar region without neurogenic claudication (ICD-10) Acute idiopathic pericarditis ?I30.0 - Acute nonspecific idiopathic pericarditis (ICD-10) Hyperactive airway disease ?J45.909 - Unspecified asthma, uncomplicated (ICD-10) CKD (chronic kidney disease), stage III ?N18.30 - Chronic kidney disease, stage 3 unspecified (ICD-10) Hyperlipidemia ?E78.5 - Hyperlipidemia, unspecified (ICD-10) Obese ?E66.9 - Obesity, unspecified (ICD-10) Restless leg syndrome ?G25.81 - Restless legs syndrome (ICD-10) Vitamin B deficiency ?E53.9 - Vitamin B deficiency, unspecified (ICD-10) Vitamin D deficiency ?E55.9 - Vitamin D deficiency, unspecified (ICD-10) Hypertension ?I10 - Essential (primary) hypertension (ICD-10) Rheumatoid arthritis ?M06.9 - Rheumatoid arthritis, unspecified (ICD-10) Osteoarthritis ?M19.90 - Unspecified osteoarthritis, unspecified site (ICD-10) Arthritis ?M19.90 - Unspecified osteoarthritis, unspecified site (ICD-10) Depression ?F32.A - Depression, unspecified (ICD-10) Anxiety ?F41.9 - Anxiety disorder, unspecified (ICD-10) Migraine ?G43.909 - Migraine, unspecified, not intractable, without status migrainosus (ICD-10) GERD (gastroesophageal reflux disease) ?K21.9 - Gastro-esophageal reflux disease without esophagitis (ICD-10) Atrial fibrillation ?I48.91 - Unspecified atrial fibrillation (ICD-10) Bradycardia ?R00.1 - Bradycardia, unspecified (ICD-10) Diabetes ?E11.9 - Type 2 diabetes mellitus without complications (ICD-10) Hypothyroidism ?E03.9 - Hypothyroidism, unspecified (ICD-10) Pacemaker ?Z95.0 - Presence of cardiac pacemaker (ICD-10) Surgical History S/P epidural steroid injection ?Z92.241 - Personal history of systemic steroid therapy (ICD-10) History of radiofrequency ablation (RFA) of nerve of lumbar spine ?Z98.890 - Other specified postprocedural states (ICD-10) History of permanent cardiac pacemaker placement ?Z95.0 - Presence of cardiac pacemaker (ICD-10) H/O repair of right rotator cuff ?Z98.890 - Other specified postprocedural states (ICD-10) Hx of repair of left rotator cuff ?Z98.890 - Other specified postprocedural states (ICD-10) H/O: hysterectomy ?Z90.710 - Acquired absence of both cervix and uterus (ICD-10) History of colonoscopy ?Z98.890 - Other specified postprocedural states (ICD-10) History of hernia repair ?Z98.890 - Other specified postprocedural states (ICD-10) ?Z87.19 - Personal history of other diseases of the digestive system (ICD-10) History of cholecystectomy ?Z90.49 - Acquired absence of other specified parts of digestive tract (ICD-10) History of appendectomy ?Z90.49 - Acquired absence of other specified parts of digestive tract (ICD-10) History of ankle surgery ?Z98.890 - Other specified postprocedural states (ICD-10) History of shoulder replacement ?Z96.619 - Presence of unspecified artificial shoulder joint (ICD-10) History of total hip arthroplasty ?Z96.649 - Presence of unspecified artificial hip joint (ICD-10) History of arthroplasty of knee ?Z96.659 - Presence of unspecified artificial knee joint (ICD-10) Family History Other ALS (amyotrophic lateral sclerosis) Disease of spine Family history of bone cancer Family history of diabetes mellitus Family history of myocardial infarction Family history of stroke Rectal cancer Social History (Updated 07/05/24 @ 12:06 by Karen Franco RN) Within the past year, how often did you have a drink containing alcohol: never Score interpretation: A score less than 3 is consistent with normal alcohol consumption. Smoking status: Never smoker Non-prescribed substance use: denies use Previous occupational history: retired Highest level of school completed/degree received: high school graduate Little interest or pleasure in doing things: not at all Feeling down, depressed, or hopeless: not at all Meds Home Medications and Allergies Home Medications ?Medication ?Instructions ?Recorded ?Confirmed ?Type furosemide 40 mg tablet 40 mg PO QDAY PRN edema 01/04/23 09/20/24 History insulin lispro 100 unit/mL 1 sliding scale dose subcut QDAY 01/04/23 09/20/24 History subcutaneous pen levothyroxine 25 mcg tablet 25 mcg PO QDAY 01/04/23 09/20/24 History losartan 25 mg tablet 25 mg PO QDAY 01/04/23 09/20/24 History lovastatin 40 mg tablet 80 mg PO QDAY 01/04/23 09/20/24 History meclizine 25 mg tablet 25 mg PO TID PRN dizziness 01/04/23 09/20/24 History metoprolol tartrate 25 mg tablet 25 mg PO Q12H 01/04/23 09/20/24 History ondansetron 8 mg disintegrating 8 mg translingual DAILY PRN nausea 01/04/23 09/20/24 History tablet and vomiting semaglutide 2 mg/dose (8 mg/3 mL) 2 mg subcut QWEEK 01/04/23 09/20/24 History subcutaneous pen injector (Ozempic) sertraline 25 mg tablet 100 mg PO QPM 01/04/23 09/20/24 History esomeprazole magnesium 40 mg 40 mg PO DAILY 01/05/23 09/20/24 History capsule,delayed release (Nexium) acetaminophen 500 mg tablet 500 mg PO Q4H PRN fever or pain 07/05/24 09/20/24 History (Tylenol Extra Strength) rivaroxaban 15 mg tablet (Xarelto) 15 mg PO DAILY 07/05/24 09/20/24 History Allergies Allergy/AdvReac Type Severity Reaction Status Date / Time amoxicillin (From Augmentin) Allergy Rash Verified 09/10/24 09:05 atorvastatin (From Lipitor) Allergy myalgia Verified 09/10/24 09:05 cefdinir (From Omnicef) Allergy Unknown Verified 09/10/24 09:05 clavulanic acid (From Allergy Rash Verified 09/10/24 09:05 Augmentin) cortisone Allergy Chest Pain Verified 09/10/24 09:05 doxycycline Allergy Unknown Verified 09/10/24 09:05 duloxetine (From Cymbalta) Allergy Itching Verified 09/10/24 09:05 hydrochlorothiazide Allergy Unknown Verified 09/10/24 09:05 lisinopril Allergy Unknown Verified 09/10/24 09:05 moxifloxacin (From Avelox) Allergy Rash Verified 09/10/24 09:05 nitrofurantoin (From Allergy Unknown Verified 09/10/24 09:05 Macrobid) rosuvastatin (From Crestor) Allergy Rash Verified 09/10/24 09:05 simvastatin (From Zocor) Allergy Unknown Verified 09/10/24 09:05 venlafaxine (From Effexor) Allergy Unknown Verified 09/10/24 09:05 erythromycin base AdvReac Vomiting Verified 09/10/24 09:05 levofloxacin (From Levaquin) AdvReac Dizziness Verified 09/10/24 09:05 sulfamethoxazole (From AdvReac Vomiting Verified 09/10/24 09:05 Bactrim) trimethoprim (From Bactrim) AdvReac Vomiting Verified 09/10/24 09:05 Exam Narrative Exam Narrative: General: Patient opens eyes to name Skin: no visible rashes, or ulcers Head: atraumatic, acephalic Eyes: PERRLA, no nystagmus present, conjunctiva clear, no scleral icterus Ears: normal gross auditory acuity Heart: Normal rate and rhythm, no murmurs/rubs/gallops Lungs: no audible wheezes, crackles and normal breath sounds all lung schroeder Abdomen: Normal audible bowel sounds, no distension, No palpable masses, no organomegaly, no rebound/guarding/ or rigidity Musculoskeletal: no swelling bilateral lower extremities Constitutional Vital Signs, click to edit/add: Last Vital Signs Temp 98.7 F 09/20/24 12:35 Pulse 64 09/20/24 13:30 Resp 14 09/20/24 13:30 BP 112/65 09/20/24 13:30 Pulse Ox 98 09/20/24 13:30 O2 Del Method Nasal Cannula 09/20/24 13:30 O2 Flow Rate 3 09/20/24 13:30 Assessment and Plan Assessment and Plan (1) Post-operative pain: Assessment and Plan: Lumbar fusion today, pain control per primary team with PT recs and discharge planning per them as well (2) Postoperative hypotension: Assessment and Plan: recheck H&H now, continue fluids, hold BP meds and IV pain meds. 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-way use Diabetes mellitus type: type 2 Qualified Code(s): E11.65 - Type 2 diabetes mellitus with hyperglycemia; Z79.4 - intermediate teacher (current) use of insulin (5) Atrial fibrillation: Assessment and Plan: Monitor, will resume metoprolol, losartan Qualifiers: Atrial fibrillation type: unspecified chronic Qualified Code(s): I48.20 - Chronic atrial fibrillation, unspecified (6) GERD (gastroesophageal reflux disease): Assessment and Plan: continue nexium Qualifiers: Esophagitis presence: without esophagitis Qualified Code(s): K21.9 - Gastro-esophageal reflux disease without esophagitis (7) Depression: Assessment and Plan: continue zoloft Qualifiers: Depression Type: unspecified Qualified Code(s): F32.A - Depression, unspecified (8) Hypertension: Assessment and Plan: Monitor blood pressure and resume home meds Qualifiers: Hypertension type: secondary to endocrine disorders Qualified Code(s): I15.2 - Hypertension secondary to endocrine disorders (9) Restless leg syndrome: (10) Hyperlipidemia: Assessment and Plan: continue statin Qualifiers: Hyperlipidemia type: unspecified Qualified Code(s): E78.5 - Hyperlipidemia, unspecified (11) CKD (chronic kidney disease), stage III: Assessment and Plan: Monitor renal function. Qualifiers: Chronic kidney disease stage 3 subtype: unspecified whether 3a or 3b Qualified Code(s): N18.30 - Chronic kidney disease, stage 3 unspecified (12) Hypothyroidism (acquired): Assessment and Plan: continue levothyroxine (13) Pacemaker: Plan Patient is a full code Currently in the post operative setting, will follow along primary team given patient's complex medical conditions She is in Surgical observation and is expected to discharge Monday.
--- NOTE | 2024-09-20 15:11 | SWNOTE1 ---
SW met with pt's in room. Pt in room as well, still fairly tired/groggy. SW explained to that SW was consulted for home health services. SW explained that pt has a hemovac drain in place and there is a chance pt will discharge with this. SW can set up home health nurse to monitor and assist with drain until it can be removed. Pt's voiced he does not do drains and he is agreeable to this. DOMI explained that SW will find a company in-network with insurance. SW provided list from medicare.gov, pt's has no preference. Referral sent to [facility]. Referral included face sheet and surgeon note.
[2024-09-20 16:01] LABS: Hemoglobin 10.2 g/dL (12.0-16.0)
--- NOTE | 2024-09-20 16:05 | SWNOTE1 ---
[facility] is able to accept. SW notified pt's in room. Packet left on floor.
[2024-09-20 17:17] LABS: Glucometer 106 mg/dL (74-106)
[2024-09-20] MEDS: POLYETHYLENE GLYCOL 3350 17 GM POWDER PACKET PO (17:19)
[2024-09-20] MEDS: BISACODYL 5 MG TABLET PO (17:19)
[2024-09-20 21:30] LABS: Glucometer 160 mg/dL (74-106)
[2024-09-20] MEDS: METOPROLOL TARTRATE 25 MG TABLET PO (21:30)
[2024-09-20] MEDS: SENNOSIDES/DOCUSATE SODIUM 1 TAB TABLET PO (21:30)
[2024-09-20] MEDS: VANCOMYCIN HCL 500 MG in 0.9 % SODIUM CHLORIDE 100 ML 100 MG IV (21:31)
[2024-09-20] MEDS: INSULIN ASPART 300 UNIT/3 ML PEN SUBQ (21:31)
[2024-09-20] MEDS: SERTRALINE HCL 50 MG TABLET 25 MG PO (21:39)
[2024-09-21] VITALS: BP 107/68; PULSE 62; TEMP 36.8; O2SAT 94
[2024-09-21] MEDS: 0.9 % SODIUM CHLORIDE 1,000 ML 100 ML IV (02:00)
[2024-09-21 03:27] VITALS: BP 130/84; PULSE 67; TEMP 36.6; O2SAT 91
[2024-09-21] MEDS: CYCLOBENZAPRINE HCL 10 MG TABLET PO (05:59)
[2024-09-21] MEDS: LEVOTHYROXINE SODIUM 25 MCG TABLET PO (05:59)
[2024-09-21 08:39] LABS: Basophils Percent Auto 0.2 % (0.2-2.0); Eosinophils Absolute Auto 0.1 10^3/uL (0.0-0.7); Eosinophils Percent Auto 0.5 % (0.9-7.0); Hematocrit 28.7 % (36.0-48.0); Hemoglobin 9.2 g/dL (12.0-16.0); Immature Granulocytes Abs Auto 0.04 10^3/uL (0.00-0.03); Immature Granulocytes Pct Auto 0.3 % (0.0-0.5); Lymphocytes Percent Auto 8.3 % (20.5-60.0); Mean Corpuscular HGB Conc 32.1 g/dL (29.9-35.2); Mean Corpuscular Volume 93.5 fL (81.0-99.0); Mean Platelet Volume 8.7 fL (9.5-13.5); Monocytes Absolute Auto 0.9 10^3/uL (0.3-0.8); Monocytes Percent Auto 7.8 % (1.7-12.0); Neutrophils Percent Auto 82.9 % (43.0-75.0); Platelet Count 153 10^3/uL (150-450); Red Blood Count 3.07 10^6/uL (4.20-5.40); Red Cell Distribution Width 13.8 % (11.0-15.0)
[2024-09-21 08:56] LABS: Anion Gap 10.3; BUN Creatinine Ratio 14.6; Calcium 8.3 mg/dL (8.5-10.1); Carbon Dioxide 25.7 mmol/L (21.0-32.0); Chloride 106 mmol/L (98-107); Estimated GFR (African America 34 (>=60 mL/min/1.73m^2); Estimated GFR (Non-African Ame 28 (>=60 mL/min/1.73m^2); Glucose 130 mg/dL (74-106); Sodium 137 mmol/L (136-145)
--- NOTE | 2024-09-21 09:05 | PM.ORPN ---
Progress Note: A&P Assessment and Plan (1) Post-operative pain: Assessment and Plan: POD #1 L4-S1 decompression/fusion -Hemovac output 90 mL in 6 hours, maintain today -Hgb postoperatively checked secondary to soft systolic BP/hypotension and was 10.2 that has trended to 9.2 this AM, acute blood loss anemia secondary to operative losses, drain output, IVF overnight-might be a dilutional component as well, check another CBC in AM. BP monitoring-seems to be improving today. Hospitalist following. -Neuro intact bilateral lower extremities -Bowel regimen, patient has had bowel movement, denies abdominal pain -PT evaluation, ambulation as tolerated with walker -Hopeful discharge for tomorrow if vitals and labs stable and pain controlled. Will re-eval drain output for removal tomorrow AM. Plan discussed with my Supervising Physician, Dr Rey. (2) Postoperative hypotension: Subjective Subjective Principal diagnosis: Lumbar Spinal Fusion Interval history: Patient is POD #1 from an L4-S1 decompression and posterior fusion and is having some pain this morning in the back that she describes as burning. She was able to sleep and pain is controlled with pain medication. She denies any headaches overnight or this morning. She has had a bowel movement and denies any abdominal pain. She denies any increased bilateral lower extremity pain or numbness/tingling. She has had a left total knee replacement and does have some residual numbness around the incision. She does have a Fox in place but denies any bowel incontinence or saddle anesthesia. Exam Narrative Exam Narrative: On exam patient is sitting in hospital chair, in no distress, alert and oriented x 3. On inspection of the dressing it is clean/dry/intact. Hemovac in place. Patient actively moves bilateral lower extremities, some pain and decreased motion with active hip flexion/extension, but there is full knee flexion/extension and plantarflexion/dorsiflexion. 5/5 PF/DF strength. 2+ DP pulses palpated. Sensation intact with light touch to bilateral lower extremities except for some numbness around her left knee midline surgical scar. Constitutional Vital Signs, click to edit/add: Last Vital Signs Temp 97.8 F 09/21/24 03:27 Pulse 67 09/21/24 03:27 Resp 16 09/21/24 03:27 BP 130/84 09/21/24 03:27 Pulse Ox 91 L 09/21/24 03:27 O2 Del Method Room Air 09/21/24 03:27 O2 Flow Rate 1 09/21/24 00:00 Urinary Catheter Management Urinary Catheter Management Urethral: Cath placed during this visit: yes Urethral indwelling: Yes Reason for continuing: surgical procedure Insertion date: 09/20/24
[2024-09-21] MEDS: BISACODYL 5 MG TABLET PO (09:18)
[2024-09-21] MEDS: METOPROLOL TARTRATE 25 MG TABLET PO (09:18)
[2024-09-21] MEDS: PANTOPRAZOLE SODIUM 40 MG TABLET.DR PO (09:18)
[2024-09-21] MEDS: LOSARTAN POTASSIUM 25 MG TABLET PO (09:18)
[2024-09-21] MEDS: SENNOSIDES/DOCUSATE SODIUM 1 TAB TABLET PO ×2 (09:18→21:12)
[2024-09-21] MEDS: POLYETHYLENE GLYCOL 3350 17 GM POWDER PACKET PO (09:18)
[2024-09-21] MEDS: VANCOMYCIN HCL 500 MG in 0.9 % SODIUM CHLORIDE 100 ML 100 MG IV ×2 (09:19→21:12)
[2024-09-21 09:24] VITALS: BP 111/7; PULSE 71; TEMP 36.6; O2SAT 91
--- NOTE | 2024-09-21 09:33 | PT.DAILY ---
Physical Therapy Daily Note PT Daily Note/Assess Start: 09/21/24 09:21 Freq: Status: Active Protocol: Document 09/21/24 09:21 [id number] (Rec: 09/21/24 09:33 [id number]) Physical Therapy Daily Note/Assessment Time In/Time Out Time In 09:09 Time Out 09:18 Subjective Subjective Patient received in bed with nursing present. Patient agreeable to participate with PT. present during treatment. Patient states R LE is really bothering her. Nursing is aware of pain and providing care. Therapeutic Activity Time Therapeutic Activity 9 Minutes (minutes) Therapeutic Activity 1 Units Therapeutic Activity Treatment Bed Mobility Ability Moderate Assist,2 Person Assist Chair Transfer Minimum Assist,2 Person Assist Ability Therapeutic Activity Bed mobility: supine to L side lying to sit with use of Comments UE on bed rail is MOD A +2, MIN A +1 for LE management. Verbal cues to perform log rolling for safety. Patient requires additional time to move due to pain. Patient sat EOB ~1 minute to orient self to position change. MAX A +1 to dolly lumbar brace. Transfer: sit to stand to 2WW MIN A +2. Patient ambulated ~10 feet with 2WW with CGA +1. Transfer: stand to sit with use of RADHA UE support on arm rest of chair is CGA +1. Patient demonstrates good control while lowering self to chair seat. Patient left in care of nursing who monitored vitals, provided blanket for warmth and placed tray table in front of patient in preparation for breakfast. CBWR placed beside on couch and educated to contact nurse if patient is in need due to short length of cord. States he understands and will. Total Physical Therapy Time Total Therapy 9 Minutes Total Physical 1 Therapy Units Summary Daily Note Summary Patient demonstrates improve functional mobility with decreased assist required. Patient limited by pain and stiffness to R LE and low back. Demonstrates safe and appropriate technique for log rolling during bed mobility. Patient would benefit from continued PT to address functional deficits for return to PLOF. Patient currently scheduled for PT upon D/C.
[2024-09-21] MEDS: OXYCODONE HCL 5 MG TABLET PO ×2 (11:00→23:52)
[2024-09-21] MEDS: ACETAMINOPHEN 325 MG TABLET 650 MG PO (11:00)
[2024-09-21] MEDS: ONDANSETRON PF 4 MG/2 ML VIAL IV (11:00)
[2024-09-21 12:30] LABS: Hematocrit 27.5 % (36.0-48.0); Hemoglobin 8.8 g/dL (12.0-16.0)
[2024-09-21 12:43] LABS: BUN Creatinine Ratio 14.8; Calcium 8.3 mg/dL (8.5-10.1); Carbon Dioxide 23.8 mmol/L (21.0-32.0); Chloride 104 mmol/L (98-107); Estimated GFR (African America 31 (>=60 mL/min/1.73m^2); Estimated GFR (Non-African Ame 26 (>=60 mL/min/1.73m^2); Glucose 214 mg/dL (74-106); Potassium 4.8 mmol/L (3.5-5.1); Sodium 136 mmol/L (136-145)
--- NOTE | 2024-09-21 13:48 | PM.PN ---
Progress Note: Subjective Subjective Interval history: Patient stable this am. Continues to c/o post-op pain and surgery managing. Decreased appetite and mild nausea but tolerable. Drinking well. Afebrile. Vitals and BP stable. No SOB or cough. No chest pain or palpitations. Exam Constitutional Vital Signs, click to edit/add: Last Vital Signs Temp 98 F 09/21/24 09:24 Pulse 71 09/21/24 09:24 Resp 16 09/21/24 09:24 BP 111/7 L 09/21/24 09:24 Pulse Ox 91 L 09/21/24 09:24 O2 Del Method Room Air 09/21/24 09:24 O2 Flow Rate 1 09/21/24 00:00 Documenting provider has reviewed patient's vital signs: yes Common normals: no apparent distress, oriented x3 and alert HENMT Common normals: normocephalic Eye Common normals: PERRL and EOMs intact bilaterally Respiratory Common normals: normal respiratory effort and clear to auscultation bilaterally Cardio Common normals: regular rate, regular rhythm, no gallops, no murmurs and no rub GI Common normals: Normal to inspection, nondistended, normoactive bowel sounds present and non-tender Extremity Common normals: no pedal edema Progress Note: Objective Labs Labs: Short CBC 09/20/24 09/21/24 09/21/24 Range/Units 15:54 08:31 12:25 WBC 12.0 H (4.0-11.0) 10^3/uL Hgb 10.2 L 9.2 L 8.8 L (12.0-16.0) g/dL Hct 32.0 L 28.7 L 27.5 L (36.0-48.0) % Plt Count 153 (150-450) 10^3/uL BMP 09/21/24 09/21/24 08:31 12:25 Sodium 137 136 Potassium 5.0 4.8 Chloride 106 104 Carbon Dioxide 25.7 23.8 BUN 26.0 H 28.0 H Creatinine 1.78 H 1.89 H Glucose 130 H 214 H Calcium 8.3 L 8.3 L Progress Note: A&P Assessment and Plan (1) Post-operative pain: (2) Postoperative hypotension: (3) Lumbar stenosis: Qualifiers: Neurogenic claudication status: unspecified Qualified Code(s): M48.061 - Spinal stenosis, lumbar region without neurogenic claudication (4) Hypertension: Qualifiers: Hypertension type: secondary to endocrine disorders Qualified Code(s): I15.2 - Hypertension secondary to endocrine disorders (5) Diabetes: Qualifiers: Diabetes mellitus type: type 2 Diabetes mellitus mcc insulin use: with mcc use Diabetes mellitus complication status: with hyperglycemia Qualified Code(s): E11.65 - Type 2 diabetes mellitus with hyperglycemia; Z79.4 - residential (current) use of insulin (6) Atrial fibrillation: Qualifiers: Atrial fibrillation type: unspecified chronic Qualified Code(s): I48.20 - Chronic atrial fibrillation, unspecified (7) CKD (chronic kidney disease), stage III: Qualifiers: Chronic kidney disease stage 3 subtype: unspecified whether 3a or 3b Qualified Code(s): N18.30 - Chronic kidney disease, stage 3 unspecified Plan Patient stable and post-op management per surgery. Hgb decreased but stable. Saline lock IV. Monitor labs and vitals. If stable possible discharge in am. Urinary Catheter Management Urinary Catheter Management Urethral: Cath placed during this visit: yes Urethral indwelling: Yes Reason for continuing: surgical procedure Insertion date: 09/20/24
[2024-09-21 16:21] VITALS: BP 115/72; PULSE 74; TEMP 37.3; O2SAT 91
[2024-09-21 16:26] LABS: Glucometer 124 mg/dL (74-106)
[2024-09-21 20:15] VITALS: BP 127/81; PULSE 61; TEMP 36.6; O2SAT 90
[2024-09-21 21:11] LABS: Glucometer 154 mg/dL (74-106)
[2024-09-21] MEDS: SERTRALINE HCL 50 MG TABLET 25 MG PO (21:12)
[2024-09-21] MEDS: INSULIN ASPART 300 UNIT/3 ML PEN SUBQ (21:13)
[2024-09-21 23:55] VITALS: BP 127/80; PULSE 81; O2SAT 91
[2024-09-22 05:00] VITALS: BP 144/79; PULSE 80; TEMP 36.6; O2SAT 92
[2024-09-22] MEDS: LEVOTHYROXINE SODIUM 25 MCG TABLET PO (05:58)
[2024-09-22 05:59] LABS: Hematocrit 26.2 % (36.0-48.0); Hemoglobin 8.3 g/dL (12.0-16.0)
[2024-09-22 06:10] LABS: Anion Gap 8.5; BUN Creatinine Ratio 15.6; Calcium 8.2 mg/dL (8.5-10.1); Carbon Dioxide 25.3 mmol/L (21.0-32.0); Chloride 107 mmol/L (98-107); Estimated GFR (African America 36 (>=60 mL/min/1.73m^2); Estimated GFR (Non-African Ame 30 (>=60 mL/min/1.73m^2); Glucose 127 mg/dL (74-106); Potassium 4.8 mmol/L (3.5-5.1); Sodium 136 mmol/L (136-145)
[2024-09-22 08:18] VITALS: BP 148/67; PULSE 71; TEMP 36.4; O2SAT 93
[2024-09-22] MEDS: LOSARTAN POTASSIUM 25 MG TABLET PO (08:41)
[2024-09-22] MEDS: SENNOSIDES/DOCUSATE SODIUM 1 TAB TABLET PO (08:41)
[2024-09-22] MEDS: VANCOMYCIN HCL 500 MG in 0.9 % SODIUM CHLORIDE 100 ML 100 MG IV (08:41)
[2024-09-22] MEDS: PANTOPRAZOLE SODIUM 40 MG TABLET.DR PO (08:41)
[2024-09-22] MEDS: METOPROLOL TARTRATE 25 MG TABLET PO (08:41)
[2024-09-22] MEDS: BISACODYL 5 MG TABLET PO (08:41)
[2024-09-22] MEDS: POLYETHYLENE GLYCOL 3350 17 GM POWDER PACKET PO (08:42)
--- NOTE | 2024-09-22 09:17 | PM.ORPN ---
Progress Note: A&P Assessment and Plan (1) Post-operative pain: Assessment and Plan: POD #2 L4-S1 decompression/fusion -Hemovac output 50 mL in 6 hours, 140mL in the last 12-maintain today, gave patient and the option to have removed with home health or in office tomorrow, they will come in at 1pm to the [facility] office -Hgb 8.3 from 9.8 yesterday, acute blood loss anemia from mix of operative losses, drain output, IVF-vitals stable overnight, asymptomatic -Neuro intact bilateral lower extremities -Bowel regimen, patient has had bowel movements, denies abdominal pain -Ambulation as tolerated with walker, moving better today -Okay for discharge today from Ortho standpoint if medically cleared Plan discussed with my Supervising Physician, Dr Rey. (2) Postoperative hypotension: (3) Lumbar stenosis: Qualifiers: Neurogenic claudication status: unspecified Qualified Code(s): M48.061 - Spinal stenosis, lumbar region without neurogenic claudication (4) Hypertension: Qualifiers: Hypertension type: secondary to endocrine disorders Qualified Code(s): I15.2 - Hypertension secondary to endocrine disorders (5) Diabetes: Qualifiers: Diabetes mellitus complication status: with hyperglycemia Diabetes mellitus custodial insulin use: with custodial use Diabetes mellitus type: type 2 Qualified Code(s): E11.65 - Type 2 diabetes mellitus with hyperglycemia; 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 She still has a lot of discomfort when rising from laying or sitting but per her RN is moving better today. She is having bowel movements and reports some loose stools, denies abdominal pain. She is eating okay but does not like the food here. She denies any headaches. She is having some bilateral lower extremity soreness but pain/discomfort is controlled. Exam Narrative Exam Narrative: On exam patient is sitting in hospital chair, in no distress, alert and oriented x 3. On inspection of the dressing it is clean/dry/intact. Hemovac in place. Patient actively moves bilateral lower extremities, some pain and decreased motion with active hip flexion/extension, but there is full knee flexion/extension and plantarflexion/dorsiflexion. 5/5 PF/DF strength. 2+ DP pulses palpated. Sensation intact with light touch to bilateral lower extremities except for some numbness around her left knee midline surgical scar. Constitutional Vital Signs, click to edit/add: Last Vital Signs Temp 97.5 F L 09/22/24 08:18 Pulse 71 09/22/24 08:18 Resp 16 09/22/24 08:18 BP 148/67 H 09/22/24 08:18 Pulse Ox 93 L 09/22/24 08:18 O2 Del Method Room Air 09/22/24 08:18 O2 Flow Rate 1 09/21/24 00:00 Urinary Catheter Management Urinary Catheter Management Urethral: Cath placed during this visit: yes Urethral indwelling: Yes Reason for continuing: decision to DC catheter Insertion date: 09/20/24
[2024-09-22] MEDS: ONDANSETRON PF 4 MG/2 ML VIAL IV (09:59)
--- NOTE | 2024-09-22 10:38 | PT.DAILY ---
Physical Therapy Daily Note PT Daily Note/Assess Start: 09/21/24 09:21 Freq: Status: Active Protocol: Document 09/22/24 10:29 [id number] (Rec: 09/22/24 10:38 [id number] [email or web address]) Physical Therapy Daily Note/Assessment Time In/Time Out Time In 10:15 Time Out 10:28 Pain In Pain Level 5 Pain Out Pain Level 5 Subjective Subjective Patient received seated in chair at bedside. present during treatment. States she hopes to go home today. Reports her legs are the most painful. Patient has lumbar brace donned. Therapeutic Exercise Time Therapeutic Exercise 3 Minutes (minutes) Therapeutic Exercise 0 Units Therapeutic Exercise Treatment Therapeutic Exercise Patient performed seated ankle/heel raises, LAQ x 10 Treatment reps to increase strength of RADHA LE for ADL's. Patient verbalizes difficulty with L LAQ due to previous L TKA and stiffness. Therapeutic Activity Time Therapeutic Activity 10 Minutes (minutes) Therapeutic Activity 0 Units Therapeutic Activity Treatment Chair Transfer Minimum Assist,1 Person Assist Ability Therapeutic Activity Transfer: sit to stand @ 2WW MIN A +1. Patient does Comments require increased time to complete transfer due to pain . Noted patients lumbar brace was loose upon standing. Patient's lumbar brace adjusted with increased tightness for support when in standing. Patient ambulated ~25' x 1 with 2WW, gait belt with CGA +1. Patient demonstrates a slow pace with decreased step length due to verbalized pain. No LOB observed with turning. Patients assisted with management of IV pole. Transfer: stand to sit is MIN A +1 to CGA +1. Patient is able to control decent to chair with RADHA UE on chair arm rest. Tray table placed in front of patient per their request, CBWR on tray table. Total Physical Therapy Time Total Therapy 13 Minutes Total Physical 0 Therapy Units Summary Daily Note Summary Patient is demonstrating improved functional mobility with decreased assistance required for transfers and increased distance ambulated. Patient would benefit from PT to address functional deficit in order to return to PLOF.
--- NOTE | 2024-09-22 11:43 | PM.PN ---
Progress Note: Subjective Subjective Interval history: Patient feels well this am. Post-op pain improved and tolerable with medication. Sitting in chair and worked with therapy. Appetite starting to improve and no nausea or emesis. Having BMl. Afebrile. Vitals and BP stable. No SOB or cough. No chest pain or palpitations. Exam Constitutional Vital Signs, click to edit/add: Last Vital Signs Temp 97.5 F L 09/22/24 08:18 Pulse 71 09/22/24 08:18 Resp 16 09/22/24 08:18 BP 148/67 H 09/22/24 08:18 Pulse Ox 93 L 09/22/24 08:18 O2 Del Method Room Air 09/22/24 08:18 O2 Flow Rate 1 09/21/24 00:00 Documenting provider has reviewed patient's vital signs: yes Common normals: no apparent distress, oriented x3 and alert HENMT Common normals: normocephalic Eye Common normals: PERRL and EOMs intact bilaterally Respiratory Common normals: normal respiratory effort and clear to auscultation bilaterally Cardio Common normals: regular rate, regular rhythm, no gallops, no murmurs and no rub GI Common normals: Normal to inspection, nondistended, normoactive bowel sounds present and non-tender Extremity Common normals: no pedal edema Progress Note: Objective Labs Labs: Short CBC 09/21/24 09/22/24 Range/Units 12:25 05:40 Hgb 8.8 L 8.3 L (12.0-16.0) g/dL Hct 27.5 L 26.2 L (36.0-48.0) % BMP 09/21/24 09/22/24 12:25 05:40 Sodium 136 136 Potassium 4.8 4.8 Chloride 104 107 Carbon Dioxide 23.8 25.3 BUN 28.0 H 26.0 H Creatinine 1.89 H 1.67 H Glucose 214 H 127 H Calcium 8.3 L 8.2 L Progress Note: A&P Assessment and Plan (1) Post-operative pain: (2) Postoperative hypotension: (3) Lumbar stenosis: Qualifiers: Neurogenic claudication status: unspecified Qualified Code(s): M48.061 - Spinal stenosis, lumbar region without neurogenic claudication (4) Hypertension: Qualifiers: Hypertension type: secondary to endocrine disorders Qualified Code(s): I15.2 - Hypertension secondary to endocrine disorders (5) Diabetes: Qualifiers: Diabetes mellitus complication status: with hyperglycemia Diabetes mellitus skilled nursing insulin use: with skilled nursing use Diabetes mellitus type: type 2 Qualified Code(s): E11.65 - Type 2 diabetes mellitus with hyperglycemia; Z79.4 - laborer [employer] (current) use of insulin (6) Atrial fibrillation: Qualifiers: Atrial fibrillation type: unspecified chronic Qualified Code(s): I48.20 - Chronic atrial fibrillation, unspecified (7) CKD (chronic kidney disease), stage III: Qualifiers: Chronic kidney disease stage 3 subtype: unspecified whether 3a or 3b Qualified Code(s): N18.30 - Chronic kidney disease, stage 3 unspecified Plan Patient doing well after surgery and plan per surgery. Pain tolerable with medication and working with PT. Vitals stable. Mild anemia but stable. Medically clear for discharge. Urinary Catheter Management Urinary Catheter Management Urethral: Cath placed during this visit: yes Urethral indwelling: Yes Reason for continuing: decision to DC catheter Insertion date: 09/20/24
--- NOTE | 2024-09-24 13:37 | CM.DCFOLLOWU ---
Person spoke with: Dayanna How are you feeling? Still having back pain How is your pain? better but still having some Did you understand your discharge instructions? Yes Do you have any questions about your discharge instructions? No Were you given any prescriptions at discharge? No Were you able to get your prescriptions filled? N/A Do you understand how to take your medications as ordered? Yes Do you have any questions about your follow up appointment and do you plan to keep your follow up appointment? I didn't go to appointment, explained importance of f/u appt. Pt states the Home health will remove drain and she will reschedule appt. Is there anything else that you would like to discuss? No Questions/Comments/Concerns/Other:
== END 2024-09-22 11:40 | disposition home health service (06) ==
LOC: SURGOUT 14:00 → MS 14:00
PROVIDERS: Admitting Provider Orthopaedic Surgery Orthopaedic Surgery of the Spine; Visit Provider Family Medicine
PROC: (CPT 630; principal; 2024-09-20 09:30)
DX: M51.17 Intervertebral disc disorders with radiculopathy, lumbosacral region (principal); M48.07 Spinal stenosis, lumbosacral region; E66.9 Obesity, unspecified; Z68.34 Body mass index [BMI] 34.0-34.9, adult; M79.605 Pain in left leg; M51.360 Other intervertebral disc degeneration, lumbar region with discogenic back pain only; M79.604 Pain in right leg; F32.A Depression, unspecified; G47.33 Obstructive sleep apnea (adult) (pediatric); E03.9 Hypothyroidism, unspecified; I48.20 Chronic atrial fibrillation, unspecified; Z79.4 Long term (current) use of insulin; Z79.899 Other long term (current) drug therapy; E11.65 Type 2 diabetes mellitus with hyperglycemia; Z79.01 Long term (current) use of anticoagulants; K21.9 Gastro-esophageal reflux disease without esophagitis; Z95.0 Presence of cardiac pacemaker; D62 Acute posthemorrhagic anemia; E11.22 Type 2 diabetes mellitus with diabetic chronic kidney disease; Z90.710 Acquired absence of both cervix and uterus; Z96.619 Presence of unspecified artificial shoulder joint; Z96.649 Presence of unspecified artificial hip joint; Z90.49 Acquired absence of other specified parts of digestive tract; N18.30 Chronic kidney disease, stage 3 unspecified; G89.18 Other acute postprocedural pain; I95.81 Postprocedural hypotension; I15.2 Hypertension secondary to endocrine disorders; G25.81 Restless legs syndrome; Z96.652 Presence of left artificial knee joint
CPT/HCPCS: 20936; 22612; 22614; 22842; 63047; 63048; 36415; 72100; 80048; 82948; 85014; 85018; 85025; 96361; 96365; 96366; 96375; 96376; 97162; 97165; 97530; C1713; G0378; J0131; J1100; J1171; J2250; J2405; J2704; J3010; J3370